=== PATIENT | female | born 1955 | race Caucasian/White ===

== ENCOUNTER 2018-04-18 20:10 | Inpatient (IN) | payer MEDICAID ==
[~2018-04-18] VITALS: Ht 160 cm; Wt 123.2 kg
--- NOTE | ~2018-04-18 | HP ---
PATIENT: RUCHI WOODS MEDICAL RECORD: [id number] ACCOUNT: [id number] LOCATION:D.MS [id number] : 57 ADMISSION DATE: 04/18/18 PCP: THERESA LOYD HISTORY AND PHYSICAL EXAMINATION HISTORY OF PRESENT ILLNESS: Ms. Woods is a 62-year-old white female who comes in today complaining of a "hole in her foot." She states she noticed it about a week ago. The foot is red and warm to touch. She has had some upper respiratory symptoms and feels like she has had some fever, but has blamed that on the URI, not her foot. Her white count today is mildly elevated at 12.6. X-ray reveals some minor foreign body at the 5th MTP joint, which corresponds to the area of the ulcer. She is a poorly controlled diabetic and has been seeing Dr. Loyd over the last several years. Her hemoglobin A1c today in the office is 13.4. Her just recently at [facility]. She is being admitted at this time for IV antibiotics and orthopedic consultation. PAST MEDICAL HISTORY: Significant for known diabetes mellitus, peripheral neuropathy, hyperlipidemia, and hypertension. PAST SURGICAL HISTORY: Included D&C in 1981. ALLERGIES: LEVEMIR INSULIN, UNCERTAIN OF THE REACTION. HOME MEDICATIONS: Include Tresiba 10 units a day, lisinopril 40 mg a day, glipizide 10 mg a day, levothyroxine 125 mcg daily, and Lasix 20 mg a day. FAMILY HISTORY: Significant for cancer and type 2 diabetes. SOCIAL HISTORY: The patient is recently . She is not a smoker. She did not use alcohol. REVIEW OF SYSTEMS: She has had some fever; however, she has felt feverish over the last few days, but has not checked her temperature. She is 99.4 today here in the office. She complains of some recent URI type symptoms with congestion and drainage. She denies a cough. She denies any chest pain. She does complain of quite a bit of foot pain in the left lateral foot. She denies any recent bowel or bladder changes. PHYSICAL EXAMINATION: GENERAL: She is in no obvious distress at this time. She is obese. HEENT: Her sclerae are nonicteric. NECK: Soft and supple. Mucous membranes are moist. HEART: Regular with normal rate and rhythm. LUNGS: Clear with good breath sounds bilaterally. ABDOMEN: Soft. EXTREMITIES: Left foot reveals a wound in the area of the fifth metatarsophalangeal joint which corresponds to the foreign body on the x-ray. She has decreased monofilament testing compatible with peripheral neuropathy. Pulses are diminished. Gait is normal. NEUROLOGIC: Otherwise is intact. IMPRESSION: 1. Diabetic foot. 2. Uncontrolled diabetes mellitus. 3. Foreign body on the left foot. HISTORY AND PHYSICAL [id number] [id number] 4. Hypertension. 5. Hyperlipidemia. 6. Grief reaction. 7. Obesity. PLAN: Admit. Culture foot. IV antibiotics. Orthopedic consult. See orders for rest of plan. TRANSINT:[id number] Voice Confirmation ID: [id number] DOCUMENT ID: [id number] THELMA THOMAS DO at 1416 CC: [id number] DICTATION DATE: 04/18/18 185 ACCOUNT COLLECTOR: 04/18/182138 DIS IN 04/25/18 [address] [place] [address]
--- NOTE | ~2018-04-18 | OP ---
PATIENT NAME: RUCHI WOODS MEDICAL RECORD: [id number] :57 LOCATION:D.MS Drake2235 ADMISSION DATE:04/18/18 SURGEON: BAKARI SUNSHINE MD DATE OF OPERATION: 04/21/2018 PREOPERATIVE DIAGNOSIS: Ulcerated left plantar aspect of the foot under the fifth digit with abscess. POSTOPERATIVE DIAGNOSIS: Ulcerated left plantar aspect of the foot under the fifth digit with abscess. PROCEDURES: 1. Excisional debridement of the abscess of the foot to include skin, subcutaneous tissue, portions of fat, fascia, and muscle. 2. Packing. SURGEON: Bakari Sunshine MD ANESTHESIA: TIVA with a regional block. INTRAOPERATIVE COMPLICATIONS: None. SUMMARY OF PATHOLOGIC FINDINGS: Lateral base incision was made over the area of the plantar ulceration. The lateral based incision was carried down to the MTP joint. Upon entering the area, the fluctuant abscess seen on MRI was noted and altagracia purulence was obtained. This was sent for culture. At this point, a combination of rongeur and curette was used to debride the area locally. At no point could I see that it was actually involving the bone; however, upon irrigation, a very small amount linked through the plantar ulcer. At this point, I did not decide to do a metatarsal head resection. After copious irrigation, the wound was packed with quarter-inch Nu Gauze. Sterile dressings were applied. The patient was then taken back to her hospital bed and taken back to her hospital room in stable condition. Note, the anesthesia was TIVA with a regional block. TRANSINT:[id number] Voice Confirmation ID: [id number] DOCUMENT ID: [id number] BAKARI SUNSHINE MD at 1418 CC: [id number] DICTATION DATE: 04/21/18 1240 HEAD BUYER TOBACCO: 04/21/18 1251 ADM IN [address] [place] [address]
[~2018-04-18 20:10] MED LIST: GLIPIZIDE10 MG PO; GLUCOPHAGE1000 MG PO; LISINOPRIL10 MG PO; LOPRESSOR25 MG PO; PRAVACHOL20 MG PO; PROTONIX40 MG PO; SYNTHROID100 MCG PO; ZESTORETIC 20-1 EACH PO
[2018-04-18] MEDS ORDERED: TRESIBA FL100 UNIT/1 (20:18)
[2018-04-18 21:18] LABS: BASOPHILS 0.2 % (0-2); EOSINOPHILS 0.4 % (0-7); HEMATOCRIT 32.4 % (36.0-48.0); HEMOGLOBIN 11.1 g/dL (12-16); IMMATURE GRANULOCYTES 0.1 % (0-5); LYMPHOCYTES 17.9 % (15-50); MCH 30.2 pg (26.0-34.0); MCHC 34.3 g/dL (31.0-37.0); MCV 88.3 fL (80.0-100.0); MEAN PLATELET VOLUME 10.4 fL (7.4-10.4); MONOCYTES 9.3 % (2-11); NEUTROPHILS 72.1 % (40-80); PLATELET COUNT 245 10x3/uL (130-400); RBC 3.67 10x6/uL (4.00-5.40); RDW 12.1 % (11.5-14.5); WBC 13.4 10x3/uL (4.8-10.8)
[2018-04-18 21:39] LABS: ALBUMIN 2.9 g/dL (3.4-5.0); ANION GAP 13.5 mmol/L (8-16); BILIRUBIN - TOTAL 0.53 mg/dL (0.2-1.3); CALCIUM 8.4 mg/dL (8.5-10.1); CARBON DIOXIDE 27.4 mmol/L (21.0-32.0); CREATININE - SERUM 1.5 mg/dL (0.6-1.3); POTASSIUM - SERUM 4.9 mmol/L (3.5-5.1); PROTEIN - SERUM 8.1 g/dL (6.4-8.2)
[2018-04-19] MEDS ORDERED: LASIX20 MG PO (00:01)
[2018-04-19 06:35] LABS: BASOPHILS 0.3 % (0-2); EOSINOPHILS 0.5 % (0-7); HEMATOCRIT 29.4 % (36.0-48.0); HEMOGLOBIN 9.9 g/dL (12-16); IMMATURE GRANULOCYTES 0.2 % (0-5); LYMPHOCYTES 20.8 % (15-50); MCH 29.8 pg (26.0-34.0); MCHC 33.7 g/dL (31.0-37.0); MCV 88.6 fL (80.0-100.0); MEAN PLATELET VOLUME 10.5 fL (7.4-10.4); MONOCYTES 10.6 % (2-11); NEUTROPHILS 67.6 % (40-80); PLATELET COUNT 230 10x3/uL (130-400); RBC 3.32 10x6/uL (4.00-5.40); RDW 12.2 % (11.5-14.5); WBC 13.2 10x3/uL (4.8-10.8)
[2018-04-19 06:48] LABS: ALBUMIN 2.5 g/dL (3.4-5.0); BILIRUBIN - TOTAL 0.54 mg/dL (0.2-1.3); CALCIUM 7.9 mg/dL (8.5-10.1); CARBON DIOXIDE 26.7 mmol/L (21.0-32.0); CREATININE - SERUM 1.5 mg/dL (0.6-1.3); POTASSIUM - SERUM 4.7 mmol/L (3.5-5.1); PROTEIN - SERUM 7.2 g/dL (6.4-8.2); THYROID STIMULATING HORMONE 0.48 uIU/mL (0.36-3.74)
[2018-04-19 08:19] LABS: ERYTHROCYTE SEDIMENTATION RATE 76 mm/hr (0-30)
[2018-04-19 10:30] VITALS: BP 119/60
[2018-04-19 13:23] VITALS: BMI 47.8
[2018-04-19 13:24] VITALS: BP 122/56
[2018-04-19 13:26] LABS: % SATURATION 11 % (15-55); IRON 18 ug/dl (35-150); TOTAL IRON BIND CAPACITY 162 ug/dl (260-445); UNSAT IRON BIND CAPACITY 144 ug/dl (150-375)
[2018-04-19 13:39] LABS: T4 THYROXIN - FREE 1.36 ng/dL (0.76-1.46); THYROID STIMULATING HORMONE 0.24 uIU/mL (0.36-3.74)
[2018-04-19 17:26] LABS: APPEARANCE CLEAR (CLEAR); BILIRUBIN NEGATIVE (NEGATIVE); COLOR YELLOW (YELLOW); GLUCOSE NEGATIVE (NEGATIVE); KETONE NEGATIVE (NEGATIVE); NITRITE NEGATIVE (NEGATIVE); PROTEIN NEGATIVE (NEGATIVE); SPECIFIC GRAVITY 1.005 (1.005-1.020); UROBILINOGEN NORMAL (NORMAL)
[2018-04-19 17:27] LABS: EPITHELIAL CELLS 0-5 /hpf (0-5); RED CELLS - URINE 0-5 /hpf (0-5)
[2018-04-19 17:28] LABS: BACTERIA FEW /hpf (NONE SEEN)
[2018-04-20] VITALS (7 sets, daily range): BP systolic 121–165; BP diastolic 50–80; Ht 160 cm; Wt 123.2 kg
[2018-04-20 07:30] LABS: BASOPHILS 0.5 % (0-2); EOSINOPHILS 1.5 % (0-7); HEMATOCRIT 30.8 % (36.0-48.0); HEMOGLOBIN 10.2 g/dL (12-16); IMMATURE GRANULOCYTES 0.2 % (0-5); LYMPHOCYTES 24.1 % (15-50); MCH 29.6 pg (26.0-34.0); MCHC 33.1 g/dL (31.0-37.0); MCV 89.3 fL (80.0-100.0); MEAN PLATELET VOLUME 11.4 fL (7.4-10.4); MONOCYTES 9.2 % (2-11); NEUTROPHILS 64.5 % (40-80); PLATELET COUNT 227 10x3/uL (130-400); RBC 3.45 10x6/uL (4.00-5.40); RDW 12.4 % (11.5-14.5)
[2018-04-20 07:38] LABS: ANION GAP 10.5 mmol/L (8-16); CARBON DIOXIDE 25.7 mmol/L (21.0-32.0); CREATININE - SERUM 1.7 mg/dL (0.6-1.3); POTASSIUM - SERUM 4.2 mmol/L (3.5-5.1)
[2018-04-20 08:20] LABS: FOLATE (FOLIC ACID) - SERUM >20.0 ng/mL (>3.0)
[2018-04-21 05:16] VITALS: BP 156/56
[2018-04-21 06:35] LABS: BASOPHILS 0.6 % (0-2); HEMATOCRIT 28.9 % (36.0-48.0); HEMOGLOBIN 9.5 g/dL (12-16); IMMATURE GRANULOCYTES 0.3 % (0-5); LYMPHOCYTES 22.2 % (15-50); MCH 29.4 pg (26.0-34.0); MCHC 32.9 g/dL (31.0-37.0); MCV 89.5 fL (80.0-100.0); MEAN PLATELET VOLUME 10.8 fL (7.4-10.4); MONOCYTES 9.9 % (2-11); PLATELET COUNT 260 10x3/uL (130-400); RBC 3.23 10x6/uL (4.00-5.40); RDW 12.3 % (11.5-14.5); WBC 10.5 10x3/uL (4.8-10.8)
[2018-04-21 06:40] LABS: CALCIUM 7.6 mg/dL (8.5-10.1); CARBON DIOXIDE 25.1 mmol/L (21.0-32.0); CREATININE - SERUM 1.7 mg/dL (0.6-1.3); POTASSIUM - SERUM 4.1 mmol/L (3.5-5.1)
[2018-04-21 10:55] LABS: APTT 45.2 SECONDS (22.8-39.4); INR 1.13 (0.85-1.17); PROTIME 14.1 SECONDS (11.6-15.0)
[2018-04-21 10:58] LABS: ALBUMIN 2.3 g/dL (3.4-5.0); BILIRUBIN - TOTAL 0.39 mg/dL (0.2-1.3); PROTEIN - SERUM 6.4 g/dL (6.4-8.2)
[2018-04-21 16:25] VITALS: BP 129/57
[2018-04-21 20:40] VITALS: BP 159/76
[2018-04-21 23:50] VITALS: BP 149/57
[2018-04-22 05:19] LABS: BASOPHILS 0.7 % (0-2); EOSINOPHILS 3.2 % (0-7); HEMATOCRIT 28.2 % (36.0-48.0); HEMOGLOBIN 9.2 g/dL (12-16); IMMATURE GRANULOCYTES 0.2 % (0-5); MCH 29.3 pg (26.0-34.0); MCHC 32.6 g/dL (31.0-37.0); MCV 89.8 fL (80.0-100.0); MEAN PLATELET VOLUME 10.3 fL (7.4-10.4); MONOCYTES 8.7 % (2-11); NEUTROPHILS 63.2 % (40-80); PLATELET COUNT 265 10x3/uL (130-400); RBC 3.14 10x6/uL (4.00-5.40); RDW 12.4 % (11.5-14.5); WBC 9.8 10x3/uL (4.8-10.8)
[2018-04-22 05:51] VITALS: BP 133/63
[2018-04-22 05:52] LABS: ANION GAP 13.2 mmol/L (8-16); CALCIUM 7.8 mg/dL (8.5-10.1); CARBON DIOXIDE 24.5 mmol/L (21.0-32.0); CREATININE - SERUM 1.8 mg/dL (0.6-1.3); POTASSIUM - SERUM 3.7 mmol/L (3.5-5.1)
[2018-04-22 08:18] VITALS: BP 115/67
[2018-04-22 13:10] VITALS: BP 147/72
[2018-04-22 16:40] VITALS: BP 147/75
[2018-04-22 20:55] VITALS: BP 166/81
[2018-04-23 06:28] LABS: BASOPHILS 0.4 % (0-2); EOSINOPHILS 6.9 % (0-7); HEMATOCRIT 27.9 % (36.0-48.0); HEMOGLOBIN 9.2 g/dL (12-16); IMMATURE GRANULOCYTES 0.4 % (0-5); LYMPHOCYTES 23.1 % (15-50); MCH 29.7 pg (26.0-34.0); MEAN PLATELET VOLUME 10.2 fL (7.4-10.4); MONOCYTES 11.5 % (2-11); NEUTROPHILS 57.7 % (40-80); PLATELET COUNT 274 10x3/uL (130-400); RDW 12.4 % (11.5-14.5)
[2018-04-23 06:47] LABS: ANION GAP 15.5 mmol/L (8-16); CALCIUM 8.3 mg/dL (8.5-10.1); CARBON DIOXIDE 23.6 mmol/L (21.0-32.0); CREATININE - SERUM 1.6 mg/dL (0.6-1.3); POTASSIUM - SERUM 4.1 mmol/L (3.5-5.1)
[2018-04-23 11:01] VITALS: BP 128/63
[2018-04-23 15:11] VITALS: BP 157/67
[2018-04-23 21:30] VITALS: BP 167/96
[2018-04-24 00:50] VITALS: BP 133/64
[2018-04-24 05:15] VITALS: BP 143/93
[2018-04-24 06:55] LABS: BASOPHILS 0.5 % (0-2); EOSINOPHILS 6.6 % (0-7); HEMATOCRIT 30.6 % (36.0-48.0); IMMATURE GRANULOCYTES 0.6 % (0-5); LYMPHOCYTES 30.3 % (15-50); MCH 29.3 pg (26.0-34.0); MCHC 32.7 g/dL (31.0-37.0); MCV 89.7 fL (80.0-100.0); MONOCYTES 11.1 % (2-11); NEUTROPHILS 50.9 % (40-80); PLATELET COUNT 300 10x3/uL (130-400); RBC 3.41 10x6/uL (4.00-5.40); RDW 12.5 % (11.5-14.5); WBC 6.5 10x3/uL (4.8-10.8)
[2018-04-24 07:33] LABS: ANION GAP 16.4 mmol/L (8-16); CALCIUM 7.9 mg/dL (8.5-10.1); CARBON DIOXIDE 24.2 mmol/L (21.0-32.0); CREATININE - SERUM 1.6 mg/dL (0.6-1.3); POTASSIUM - SERUM 3.6 mmol/L (3.5-5.1)
[2018-04-24 21:50] VITALS: BP 142/37
[2018-04-25 05:15] VITALS: BP 164/68
[2018-04-25 06:09] LABS: BASOPHILS 0.5 % (0-2); EOSINOPHILS 9.7 % (0-7); HEMATOCRIT 28.9 % (36.0-48.0); HEMOGLOBIN 9.5 g/dL (12-16); IMMATURE GRANULOCYTES 0.5 % (0-5); LYMPHOCYTES 33.8 % (15-50); MCH 29.5 pg (26.0-34.0); MCHC 32.9 g/dL (31.0-37.0); MCV 89.8 fL (80.0-100.0); MEAN PLATELET VOLUME 9.9 fL (7.4-10.4); NEUTROPHILS 45.5 % (40-80); PLATELET COUNT 265 10x3/uL (130-400); RBC 3.22 10x6/uL (4.00-5.40); RDW 12.4 % (11.5-14.5); WBC 6.2 10x3/uL (4.8-10.8)
[2018-04-25 06:28] LABS: CALCIUM 7.8 mg/dL (8.5-10.1); CARBON DIOXIDE 26.1 mmol/L (21.0-32.0); CREATININE - SERUM 1.5 mg/dL (0.6-1.3); POTASSIUM - SERUM 3.1 mmol/L (3.5-5.1)
[2018-04-25] MEDS ORDERED: ULTRAM50 MG PO (07:18)
[2018-04-25 08:49] VITALS: BP 141/60
[2018-04-25 12:04] VITALS: BP 184/83
[2018-04-25] MEDS ORDERED: FLORAJEN3 CAPS460 MG PO (14:04)
[2018-04-25] MEDS ORDERED: KEFLEX500 MG PO (14:05)
[2018-04-25 16:19] VITALS: BP 148/67
[2018-04-26 19:12] LABS: AEROBE ID Final report (())
== END 2018-04-25 18:42 | disposition home health service (06) | DRG 982 ==
LOC: D.ER 20:10 → D.EDHOLD 22:00 → D.MS 22:00
PROVIDERS: Anesthesiology; Family Medicine; Internal Medicine Nephrology; Orthopaedic Surgery
PROC: 0KBW0ZZ Excision of Left Foot Muscle, Open Approach (ICD-10-PCS; principal; 2018-04-21 14:00)
DX: E11.621 Type 2 diabetes mellitus with foot ulcer (principal); L97.528 Non-pressure chronic ulcer of other part of left foot with other specified severity; L02.612 Cutaneous abscess of left foot; L03.116 Cellulitis of left lower limb; E87.1 Hypo-osmolality and hyponatremia; Z68.42 Body mass index [BMI] 45.0-49.9, adult; E11.65 Type 2 diabetes mellitus with hyperglycemia; E78.5 Hyperlipidemia, unspecified; E03.9 Hypothyroidism, unspecified; E11.22 Type 2 diabetes mellitus with diabetic chronic kidney disease; I12.9 Hypertensive chronic kidney disease with stage 1 through stage 4 chronic kidney disease, or unspecified chronic kidney disease; N18.3 Chronic kidney disease, stage 3 (moderate); D64.9 Anemia, unspecified; S90.852A Superficial foreign body, left foot, initial encounter; E66.01 Morbid (severe) obesity due to excess calories; E11.43 Type 2 diabetes mellitus with diabetic autonomic (poly)neuropathy; F43.20 Adjustment disorder, unspecified

== ENCOUNTER 2020-03-17 17:20 | Inpatient (IN) | payer MEDICAID ==
[~2020-03-17] VITALS: Ht 160 cm; Wt 117.0 kg
[~2020-03-17 17:20] MED LIST changes: +FLORAJEN3 CAPS460 MG PO; +KEFLEX500 MG PO; +LASIX20 MG PO; +TRESIBA FL100 UNIT/1; +ULTRAM50 MG PO
[2020-03-17 18:04] LABS: BASOPHILS 0.3 % (0-2); EOSINOPHILS 0.1 % (0-7); HEMATOCRIT 33.5 % (36.0-48.0); HEMOGLOBIN 10.7 g/dL (12-16); IMMATURE GRANULOCYTES 0.4 % (0-5); MCH 29.5 pg (26.0-34.0); MCHC 31.9 g/dL (31.0-37.0); MCV 92.3 fL (80.0-100.0); MEAN PLATELET VOLUME 9.4 fL (7.4-10.4); NEUTROPHILS 74.2 % (40-80); RBC 3.63 10x6/uL (4.00-5.40); WBC 9.8 10x3/uL (4.8-10.8)
[2020-03-17 18:08] LABS: INR 0.99 (0.85-1.17)
[2020-03-17 18:09] LABS: ANION GAP 8.6 mmol/L (8-16); CALCIUM 10.8 mg/dL (8.5-10.1); CARBON DIOXIDE 33.9 mmol/L (21.0-32.0); CREATININE - SERUM 3.7 mg/dL (0.6-1.3); PLATELET COUNT 333 10x3/uL (130-400); POTASSIUM - SERUM 4.5 mmol/L (3.5-5.1)
[2020-03-17 18:15] LABS: ALBUMIN 2.5 g/dL (3.4-5.0); BILIRUBIN - TOTAL 0.48 mg/dL (0.2-1.3); PROTEIN - SERUM 6.7 g/dL (6.4-8.2)
[2020-03-17 21:52] LABS: HEMATOCRIT 34.3 % (36.0-48.0); HEMOGLOBIN 10.7 g/dL (12-16)
[2020-03-17 22:12] VITALS: BP 118/78
--- NOTE | 2020-03-17 23:45 | NUR ---
ATTEMPTED TO CALL REPORT. NURSE UNAVAILABLE DUE TO RAPID RESPONSE. WILL CALL BACK WHEN ABLE TO RECEIVE PT.
[2020-03-18] VITALS (10 sets, daily range): BP systolic 100–140; BP diastolic 48–73; Ht 160 cm; Wt 117.0 kg
--- NOTE | 2020-03-18 01:40 | NUR ---
RECEIVED PATIENT TO FLOOR. ATTEMPTED TO FLUSH LEFT HAND IV NOT PATENT. REMOVED AND CATHETER BENT, BUT INTACT. ATTEMPTED TO RESITE X2. CALL TO ICU FOR ASSITANCE, THEY ATTEMPTED X 2. UNSUCCESSFUL
[2020-03-18] MEDS ORDERED: FLAGYL500 MG PO (01:54)
[2020-03-18] MEDS ORDERED: AMOXICILLIN500 M1 PO (01:55)
[2020-03-18] MEDS ORDERED: HUMALOG 30100 UNITS/ SC (01:55)
[2020-03-18] MEDS ORDERED: BAYER CHEWABLE81 MG PO (01:56)
[2020-03-18 06:04] LABS: BASOPHILS 0.2 % (0-2); EOSINOPHILS 0.9 % (0-7); HEMATOCRIT 31.2 % (36.0-48.0); HEMOGLOBIN 9.7 g/dL (12-16); IMMATURE GRANULOCYTES 0.3 % (0-5); MCHC 31.1 g/dL (31.0-37.0); MCV 93.4 fL (80.0-100.0); MEAN PLATELET VOLUME 9.5 fL (7.4-10.4); MONOCYTES 9.8 % (2-11); NEUTROPHILS 67.8 % (40-80); PLATELET COUNT 361 10x3/uL (130-400); RBC 3.34 10x6/uL (4.00-5.40); RDW 16.5 % (11.5-14.5); WBC 9.7 10x3/uL (4.8-10.8)
[2020-03-18 06:54] LABS: ALBUMIN 2.3 g/dL (3.4-5.0); ALKALINE PHOSPHATASE 72 U/L (30-120); ALT (SGPT) 13 U/L (10-68); BILIRUBIN - TOTAL 0.44 mg/dL (0.2-1.3); CALC OSMOLALITY 294 mosm/kg (275-300); CALCIUM 10.4 mg/dL (8.5-10.1); CARBON DIOXIDE 33.4 mmol/L (21.0-32.0); CHLORIDE - SERUM 96 mmol/L (98-107); CKMB 0.7 U/L (0.0-3.6); CREATINE KINASE 20 UL (21-215); CREATININE - SERUM 3.7 mg/dL (0.6-1.3); GLUCOSE 204 mg/dL (74-106); POTASSIUM - SERUM 4.9 mmol/L (3.5-5.1); PRO BNP 3284 pg/mL (0-125); PROTEIN - SERUM 6.3 g/dL (6.4-8.2); SODIUM 134 mmol/L (136-145); UREA NITROGEN 71 mg/dL (7-18); eGFR NON AFRICAN AMERICAN 13 mL/min (90-120)
[2020-03-18 07:23] LABS: TROPONIN-I 0.116 ng/mL (0.000-0.060)
--- NOTE | 2020-03-18 07:47 | NUR ---
contacted samuel concerning an iv
[2020-03-18 08:23] LABS: APTT 29.5 SECONDS (22.8-39.4); INR 1.03 (0.85-1.17); PROTIME 13.5 SECONDS (11.6-15.0)
--- NOTE | 2020-03-18 10:15 | NUR ---
RETURNED FROM EGD, REMAIN NPO FOR CT BIOPSY TODAY
--- NOTE | 2020-03-18 11:07 | NUR ---
RESTING IN BED, NPO, CONT TO MONITOR SCD IN PLACE
--- NOTE | 2020-03-18 13:04 | NUR ---
PT GONE TO IR PER BED
--- NOTE | 2020-03-18 13:55 | NUR ---
RETURNED FROM IR PROCEDURE, NO DISTRESS NOTED, ELECTRIC POWER LINE EXAMINER IN ROOM AT PRESENT TIME,CONT TO MONITOR
--- NOTE | 2020-03-18 15:30 | NUR ---
DISCUSSED MG LEVEL WITH AND WILBER, NEW LABS DRAWS ON CHART
[2020-03-19] VITALS: BP 97/49
[2020-03-19 04:00] VITALS: BP 109/58
[2020-03-19 05:48] LABS: BASOPHILS 0.4 % (0-2); EOSINOPHILS 2.8 % (0-7); IMMATURE GRANULOCYTES 0.3 % (0-5); LYMPHOCYTES 24.4 % (15-50); MCH 29.1 pg (26.0-34.0); MCHC 32.1 g/dL (31.0-37.0); MEAN PLATELET VOLUME 10.6 fL (7.4-10.4); MONOCYTES 8.8 % (2-11); NEUTROPHILS 63.3 % (40-80); RBC 3.09 10x6/uL (4.00-5.40); RDW 16.3 % (11.5-14.5); WBC 9.1 10x3/uL (4.8-10.8)
[2020-03-19 05:49] LABS: MCV 90.6 fL (80.0-100.0); PLATELET COUNT 90 10x3/uL (130-400)
[2020-03-19 05:51] LABS: ALBUMIN 1.7 g/dL (3.4-5.0); ANION GAP 4.4 mmol/L (8-16); BILIRUBIN - TOTAL 0.36 mg/dL (0.2-1.3); CARBON DIOXIDE 34.1 mmol/L (21.0-32.0); CREATININE - SERUM 3.3 mg/dL (0.6-1.3); MAGNESIUM - SERUM 3.5 mg/dL (1.8-2.4); POTASSIUM - SERUM 4.5 mmol/L (3.5-5.1); PROTEIN - SERUM 4.8 g/dL (6.4-8.2)
--- NOTE | 2020-03-19 07:30 | NUR ---
REC'D IN BED AWAKE AND ALERT. RESP EVEN AND UNLABORED WITH NO DISTRESS NOTED. CAN EXPRESS NEEDS AND WANTS. DENIES ANY PAIN OR DISCOMFORT NOTED. ASSESSMENT COMPLETED. C/L IN REACH AT BEDSIDE.
[2020-03-19 08:25] LABS: PLATELET ESTIMATE DECREASED
[2020-03-19 09:12] LABS: HEPATITIS C ANTIBODY 0.2 S/CO RAT (0.0-0.9)
[2020-03-19 09:17] VITALS: BP 117/54
[2020-03-19 10:12] LABS: ANA REFLEX - ANTICHROMATIN ABS 0.4 AI (0.0-0.9); ANA REFLEX - CENTROMERE B ABS <0.2 AI (0.0-0.9); ANA REFLEX - DBL STRANDED DNA 1 IU/mL (0-9); ANA REFLEX - DIRECT Positive (Negative); ANA REFLEX - JO-1 AB 0.2 AI (0.0-0.9); ANA REFLEX - RNP ANTIBODIES <0.2 AI (0.0-0.9); ANA REFLEX - SCL-70 <0.2 AI (0.0-0.9); ANA REFLEX - SJOGRENS AB SSA 1.4 AI (0.0-0.9); ANA REFLEX - SJOGRENS AB SSB <0.2 AI (0.0-0.9); ANA REFLEX - SMITH AB 0.4 AI (0.0-0.9)
--- NOTE | 2020-03-19 12:11 | NUR ---
I have reviewed this patient and I concur with the Shift Assessment completed by the Licensed Practical Nurse today this shift.
[2020-03-19 12:44] LABS: BASOPHILS 0.4 % (0-2); EOSINOPHILS 2.8 % (0-7); HEMATOCRIT 29.4 % (36.0-48.0); HEMOGLOBIN 9.1 g/dL (12-16); IMMATURE GRANULOCYTES 0.4 % (0-5); LYMPHOCYTES 20.8 % (15-50); MCH 28.8 pg (26.0-34.0); MEAN PLATELET VOLUME 9.4 fL (7.4-10.4); MONOCYTES 7.8 % (2-11); NEUTROPHILS 67.8 % (40-80); RBC 3.16 10x6/uL (4.00-5.40); RDW 16.3 % (11.5-14.5); WBC 8.9 10x3/uL (4.8-10.8)
[2020-03-19 12:46] LABS: PLATELET COUNT 323 10x3/uL (130-400)
[2020-03-19 14:34] VITALS: BP 130/63
[2020-03-19 17:56] VITALS: BP 122/57
[2020-03-19 20:00] VITALS: BP 120/66
[2020-03-20 04:00] VITALS: BP 115/62
--- NOTE | 2020-03-20 05:35 | NUR ---
I have reviewed this patient and I concur with the Shift Assessment completed by the Licensed Practical Nurse today this shift.
[2020-03-20 05:46] LABS: BASOPHILS 0.2 % (0-2); HEMATOCRIT 28.1 % (36.0-48.0); HEMOGLOBIN 8.9 g/dL (12-16); IMMATURE GRANULOCYTES 0.5 % (0-5); MCH 29.2 pg (26.0-34.0); MCHC 31.7 g/dL (31.0-37.0); MCV 92.1 fL (80.0-100.0); MEAN PLATELET VOLUME 10.1 fL (7.4-10.4); MONOCYTES 10.2 % (2-11); NEUTROPHILS 65.1 % (40-80); PLATELET COUNT 337 10x3/uL (130-400); RBC 3.05 10x6/uL (4.00-5.40); RDW 16.2 % (11.5-14.5); WBC 8.1 10x3/uL (4.8-10.8)
[2020-03-20 06:21] LABS: ALBUMIN 1.7 g/dL (3.4-5.0); ANION GAP 4.9 mmol/L (8-16); BILIRUBIN - TOTAL 0.29 mg/dL (0.2-1.3); CALCIUM 8.7 mg/dL (8.5-10.1); CARBON DIOXIDE 34.5 mmol/L (21.0-32.0); CREATININE - SERUM 3.2 mg/dL (0.6-1.3); MAGNESIUM - SERUM 3.3 mg/dL (1.8-2.4); POTASSIUM - SERUM 4.4 mmol/L (3.5-5.1); PROTEIN - SERUM 5.2 g/dL (6.4-8.2)
--- NOTE | 2020-03-20 08:38 | NUR ---
BATH WAS OFFERED BUT PT REFUSED.
[2020-03-20 09:01] VITALS: BP 93/41
--- NOTE | 2020-03-20 11:06 | NUR ---
Nutrition follow-up: Pts diet advanced to consistent CHO after several tests 03/19 Labs reviewed Will provide food choices and honor food preferences within diet restrictions. RDN following.
--- NOTE | 2020-03-20 13:10 | NUR ---
INFORMED DR. THOMAS OF PT BS BEING 59. REC'D NEW ORDERS FOR D50W SYRINGE INJ X 1 DOSE 25 ML. C/L IN REACH AT BEDSIDE.
[2020-03-20 13:12] LABS: MITOCHONDRIAL ANTIBODY <20.0 Units (0.0-20.0); SMOOTH MUSCLE ABS (ACTIN) 13 Units (0-19)
[2020-03-20 13:36] VITALS: BP 100/53
--- NOTE | 2020-03-20 16:23 | MORECARE ---
CASE MANAGEMENT DISCHARGE SUMMARY PATIENT: RUCHI WOODS UNIT: [id number] ADM DATE: 03/18/20 AGE: 64 : 57 SEX: F ROOM/BED: D.2224 AUTHOR: TYESHA,DOC PHYSICIAN: REFERRING PHYSICIAN: DWIGHT DEL ROSARIO MD DATE OF SERVICE: 03/20/20 Discharge Plan Patient Name: RUCHI WOODS Facility: [facility]:[place] : 1955 Planned Disposition: Home Hlth Svc w Plan Readm Anticipated Discharge Date: Discharge Date: Expected LOS: Initial Reviewer: [email or web address] Initial Review Date: 03/18/2020 Generated: 03/20/20 5:22 pm Comments DCP- Discharge Planning Updated by [email or web address]: Opal Chang on 03/20/20 3:[address] Patient Name: RUCHI WOODS Admission Status: ER Accout number: [id number] Admission Date: 03-18-2020 : 1955 Admission Diagnosis:GASTROINTESTINAL HEMORRHAGE, UNSPECIFIED Attending: MICHAEL Current LOS: 2 Anticipated DC Date: Planned Disposition: Home Hlth Svc w Plan Readm Primary Insurance: MEDICAID [place] CM met with patient at bedside after explaining CM role and obtaining verbal consent. CM discussed availability / needs of home health, REHAB and medical equipment. PATIENT PLANS TO RESUME [facility], [facility] SIGNED. STATES WOULD LIKE [facility] FOR [facility]. CM TO FOLLOW AND ASSIST NEEDED. Insurance Underwriter Sales: Opal Chang DCPIA - Discharge Planning Initial Assessment Updated by [id number]: Opal Chang on 03/20/20 4:19 pm * Is the patient Alert and Oriented? Yes * PCP MARTHA * [facility] * Preadmission Environment Home Alone * ADLs Independent * Other Equipment SCOOTER, WALKER * Please name any agencies selected above. [facility] * Additional services required to return to the preadmission environment? No * Can the patient safely return to the preadmission environment? Yes * Has this patient been hospitalized within the prior 30 days at any hospital? No External Providers [facility] Next Contact Date: Service Request Date: Service Type: Resolution: Reviewer: Comments: Coverage Notice Reviewer: [email or web address] Darrel Opal Chang Notice Issued Date-Time: 03/20/2020 16:21 Notice Type: Patient Choice Letter Notice Delivered To: Relationship to Patient: Api Developer Name: Delivery Method: - Edel Days: Prior Verbal Notification: Recipient Understood Notice: Recipient Signature: Med Rec Note Co-signed by Attending: Coverage Notice Comment: [facility] Patient Name: RUCHI WOODS Page [id number] at 1623 All edits/amendments must be made on the electronic document DICTATION DATE: 03/20/20 1623 NANOSCIENCE TECHNICIAN: FOREST 03/20/20 1623 RPT#: [id number] MA DATE: STATUS: ADM IN [facility] [address] [place] [address] END OF REPORT
--- NOTE | 2020-03-20 17:49 | NUR ---
RECHECKED BS WITH RESULT OF 126 WHEN PRIOR WAS 44. C/L IN REACH AT BEDSIDE.
[2020-03-20 18:41] VITALS: BP 106/68
[2020-03-20 22:20] VITALS: BP 93/54
--- NOTE | 2020-03-21 03:54 | NUR ---
I have reviewed this patient and I concur with the Shift Assessment completed by the Licensed Practical Nurse today this shift.
[2020-03-21 04:00] VITALS: BP 105/56
[2020-03-21 05:36] LABS: HEMATOCRIT 31.2 % (36.0-48.0); HEMOGLOBIN 9.9 g/dL (12-16); LYMPHOCYTES 23.4 % (15-50); MCH 29.2 pg (26.0-34.0); MCHC 31.7 g/dL (31.0-37.0); MEAN PLATELET VOLUME 9.6 fL (7.4-10.4); NEUTROPHILS 65.5 % (40-80); PLATELET COUNT 308 10x3/uL (130-400); RBC 3.39 10x6/uL (4.00-5.40); RDW 15.6 % (11.5-14.5); WBC 8.5 10x3/uL (4.8-10.8)
[2020-03-21 06:14] LABS: ALBUMIN 1.8 g/dL (3.4-5.0); ANION GAP 7.6 mmol/L (8-16); BILIRUBIN - TOTAL 0.3 mg/dL (0.2-1.3); CALCIUM 8.6 mg/dL (8.5-10.1); CARBON DIOXIDE 32.6 mmol/L (21.0-32.0); CREATININE - SERUM 3.1 mg/dL (0.6-1.3); MAGNESIUM - SERUM 3.1 mg/dL (1.8-2.4); POTASSIUM - SERUM 4.2 mmol/L (3.5-5.1); PROTEIN - SERUM 5.4 g/dL (6.4-8.2)
[2020-03-21 07:13] LABS: ERYTHROCYTE SEDIMENTATION RATE 55 mm/hr (0-30)
[2020-03-21 08:00] VITALS: BP 99/41
[2020-03-21 08:34] LABS: BILIRUBIN NEGATIVE (NEGATIVE); GLUCOSE NEGATIVE (NEGATIVE); KETONE NEGATIVE (NEGATIVE); NITRITE NEGATIVE (NEGATIVE); UROBILINOGEN NORMAL (NORMAL)
[2020-03-21 08:36] LABS: RED CELLS - URINE 0-5 /hpf (0-5)
[2020-03-21 08:37] LABS: BACTERIA FEW /hpf (NEGATIVE)
[2020-03-21 12:00] VITALS: BP 91/43
--- NOTE | 2020-03-21 13:57 | NUR ---
SITTING UP AT BEDSIDE. FAMILY IN ROOM. MONITOR
--- NOTE | 2020-03-21 14:25 | EC ---
PATIENT:RUCHI WOODS DATE OF SERVICE: 03/18/20 SEX: F MEDICAL RECORD: [id number] DATE OF : 57 LOCATION:D.MS Drake222 AGE OF PATIENT: 64 ADMISSION DATE: 03/18/20 REFERRING PHYSICIAN: INTERPRETING PHYSICIAN: DANNY SORIA MD ECHOCARDIOGRAM REPORT ECHO CHARGES 4 ECHO COMPLETE Date: 03/18/20 CLINICAL DIAGNOSIS: ELEVATED TROPONIN, CIRRHOSIS, CHF ECHOCARDIOGRAPHIC MEASUREMENTS (adult normal given) AC root (d.<3.7cm) 2.2 cm LV Septum d (<1.2 cm> 1.0 cm Valve Excursion 1.6 cm LV Septum (systole) 1.9 cm Left Atria (s.<4.0cm> 3.4 cm LVPW d(<1.2cm) 0.9 cm RV (d.<2.3cm) 2.5 cm LVPW (sytole) 1.0 cm LV diastole(<5.6CM) 4.4 cm MV E-F(>70mm/sec) cm LV systole 2.6 cm LVOT Diameter 1.5 cm MV exc.(>10mm) cm Est.ejection fraction (50-75%) % DOPPLER: LVIT cm/sec A 146 cm/sec E 106 cm/sec LA cm/sec RVSP 25.9 mmHg LVOT 174 cm/sec AOP1/2T m/s Asc. Ao 153 cm/sec RVOT 84 cm/sec RA cm/sec PA 126 cm/sec AV Gradient Peak 9.3 mmHg AV Mean 5.4 mmHg AV Area 2.1 cm MV Gradient Peak 11.2 mmHg MV Mean 5.0 mmHg MV Area cm COMMENTS: Programmer Developer: Venancio RICH Cap Parts Cutter: 3 Dr. Rizo TAPE# PACS Pericardial Effusion N DATE OF SERVICE: Adequate 2D, color flow imaging, Spectral Doppler, and M-mode. No LVH. LV internal dimension is normal. Wall motion is normal. EF is greater than or equal to 55%.. Aortic valve is sclerotic. No evidence of stenosis by Doppler interrogation. Left atrium is normal. Mitral valve shows no prolapse. Trace MR. Right-sided chambers are grossly normal. Trace TR. TRANSINT:[id number] Voice Confirmation ID: [id number] DOCUMENT ID: [id number] ECHOCARDIOGRAM REPORT [id number] RUCHI WOODS DANNY SORIA MD at 1425 CC: [id number] DICTATION DATE: 03/19/20 1304 PLASTERER FOREMAN: 03/19/20 2153 ADM IN [place] [id number] [place] [id number]
[2020-03-21 15:32] VITALS: BP 91/45
--- NOTE | 2020-03-21 19:20 | NUR ---
UPON THIS NURSE BATHING PT SHE NOTICE THAT SHE HAS ON OPEN AREA NOTED TO RIGHT PINKIE TOE. C/L IN REACH AT BEDSIDE.
[2020-03-21 20:00] VITALS: BP 106/48
[2020-03-22 04:00] VITALS: BP 109/54
[2020-03-22 04:48] LABS: BASOPHILS 0.3 % (0-2); EOSINOPHILS 4.8 % (0-7); HEMATOCRIT 26.7 % (36.0-48.0); HEMOGLOBIN 8.3 g/dL (12-16); IMMATURE GRANULOCYTES 0.4 % (0-5); MCH 28.4 pg (26.0-34.0); MCHC 31.1 g/dL (31.0-37.0); MCV 91.4 fL (80.0-100.0); MEAN PLATELET VOLUME 9.6 fL (7.4-10.4); MONOCYTES 12.1 % (2-11); NEUTROPHILS 58.4 % (40-80); PLATELET COUNT 302 10x3/uL (130-400); RBC 2.92 10x6/uL (4.00-5.40); WBC 7.7 10x3/uL (4.8-10.8)
[2020-03-22 05:05] LABS: ALBUMIN 1.9 g/dL (3.4-5.0); ANION GAP 7.8 mmol/L (8-16); BILIRUBIN - TOTAL 0.33 mg/dL (0.2-1.3); CALCIUM 8.1 mg/dL (8.5-10.1); CARBON DIOXIDE 32.4 mmol/L (21.0-32.0); CREATININE - SERUM 3.1 mg/dL (0.6-1.3); MAGNESIUM - SERUM 2.9 mg/dL (1.8-2.4); POTASSIUM - SERUM 4.2 mmol/L (3.5-5.1); PROTEIN - SERUM 4.9 g/dL (6.4-8.2)
--- NOTE | 2020-03-22 09:18 | NUR ---
SHE IS ALERT TALKING. SHE HAS REDNESS TO THE RIGHT LOWER LEG, 2ND TOE HAS A RED AREA AND ALL OF THE 5 TH TOE IS RED. NEW IV TO THE RFA 22 G. REMOVED THE IV FROM THE LEFT ARM. THE CALL LIGHT IS WITHIN REACH.
[2020-03-22 09:26] VITALS: BP 106/51
[2020-03-22 12:56] VITALS: BP 111/66
[2020-03-22 15:12] LABS: UPE RAND - ALBUMIN 20.3 % (()); UPE RAND - ALPHA 1 GLOBULIN 4.3 % (()); UPE RAND - ALPHA 2 GLOBULIN 17.3 % (()); UPE RAND - BETA GLOBULIN 25.4 % (()); UPE RAND - GAMMA GLOBULIN 32.7 % (())
[2020-03-22 15:12] LABS: SPE - A/G RATIO 0.8 (0.7-1.7); SPE - ALBUMIN 2.1 g/dL (2.9-4.4); SPE - ALPHA-1 GLOBULIN 0.3 g/dL (0.0-0.4); SPE - ALPHA-2 GLOBULIN 0.8 g/dL (0.4-1.0); SPE - BETA GLOBULIN 0.5 g/dL (0.7-1.3); SPE - GAMMA GLOBULIN 1.1 g/dL (0.4-1.8); SPE - M-SPIKE 0.2 g/dL (Not Observed); SPE - TOTAL PROTEIN 4.8 g/dL (6.0-8.5)
[2020-03-22 17:22] VITALS: BP 97/51
--- NOTE | 2020-03-22 19:00 | NUR ---
BEDSIDE REPORT RECEIVED AND CARE OF PT ASSUMED. PT LYING IN SUPINE POSITION WITH EYES CLOSED. IV TO RIGHT FA PATENT WITH D10 INFUSING AT 30 ML/HR. WILL MONITOR FOR NEEDS.
[2020-03-22 20:00] VITALS: BP 147/72
--- NOTE | 2020-03-22 21:04 | NUR ---
HS MEDICATIONS GIVEN. FSBS 146 THIS CHECK REQUIRING NO COVERAGE PER SLIDING SCALE.
--- NOTE | 2020-03-23 04:09 | NUR ---
GAVE TYLENOL 650 MG PO PER REQUEST FOR BACK PAIN, PER PRN ORDER. WILL MONITOR FOR EFFECTIVENESS.
[2020-03-23 05:38] LABS: BASOPHILS 0.5 % (0-2); EOSINOPHILS 4.1 % (0-7); HEMATOCRIT 27.5 % (36.0-48.0); HEMOGLOBIN 8.7 g/dL (12-16); IMMATURE GRANULOCYTES 0.6 % (0-5); LYMPHOCYTES 22.4 % (15-50); MCH 28.7 pg (26.0-34.0); MCHC 31.6 g/dL (31.0-37.0); MCV 90.8 fL (80.0-100.0); MEAN PLATELET VOLUME 9.6 fL (7.4-10.4); MONOCYTES 12.1 % (2-11); NEUTROPHILS 60.3 % (40-80); PLATELET COUNT 316 10x3/uL (130-400); RBC 3.03 10x6/uL (4.00-5.40); RDW 15.7 % (11.5-14.5); WBC 8.3 10x3/uL (4.8-10.8)
[2020-03-23 06:23] LABS: ANION GAP 7.4 mmol/L (8-16); BILIRUBIN - TOTAL 0.43 mg/dL (0.2-1.3); CALCIUM 7.9 mg/dL (8.5-10.1); CARBON DIOXIDE 32.6 mmol/L (21.0-32.0); MAGNESIUM - SERUM 2.8 mg/dL (1.8-2.4); PROTEIN - SERUM 5.4 g/dL (6.4-8.2)
[2020-03-23 06:24] LABS: ALBUMIN 2.4 g/dL (3.4-5.0)
--- NOTE | 2020-03-23 08:16 | NUR ---
SHE IS SLEEPY THIS MORNING. BP IS LOW THIS MORNING. RIGHT LEG STILL HAS SOME REDNESS TO THE LOWER PART OF THE LEG. THE CALL LIGHT IS WITHIN REACH.
[2020-03-23 10:10] VITALS: BP 94/35
[2020-03-23 13:25] VITALS: BP 115/76
[2020-03-23 17:02] VITALS: BP 108/66
[2020-03-23 21:00] VITALS: BP 120/52
--- NOTE | 2020-03-24 07:00 | NUR ---
RECEIVED REPORT, ASSUMED CARE, A&O, DENIES NEEDS, BREATHING UNLBAORED, CALL LIGHT IN REACH, BED LOWEST POSITION, IV TO RFA PATENT D5 NS @50, 2L NC O2, HELPED UP TO BATHROOM, WALKER USED, ONE PERSON ASSIST, HELPED BACK IN BED, WILL CONITNUE POC
[2020-03-24 07:15] VITALS: BP 108/50
[2020-03-24 11:19] LABS: BASOPHILS 0.5 % (0-2); IMMATURE GRANULOCYTES 0.5 % (0-5); LYMPHOCYTES 18.8 % (15-50); MCH 28.9 pg (26.0-34.0); MCV 90.3 fL (80.0-100.0); MEAN PLATELET VOLUME 9.4 fL (7.4-10.4); MONOCYTES 15.1 % (2-11); NEUTROPHILS 61.1 % (40-80); PLATELET COUNT 286 10x3/uL (130-400); RBC 2.77 10x6/uL (4.00-5.40); RDW 15.8 % (11.5-14.5); WBC 6.3 10x3/uL (4.8-10.8)
[2020-03-24 11:27] LABS: ANION GAP 7.7 mmol/L (8-16); CALCIUM 7.8 mg/dL (8.5-10.1); POTASSIUM - SERUM 3.7 mmol/L (3.5-5.1)
[2020-03-24 11:32] LABS: ALBUMIN 2.9 g/dL (3.4-5.0); BILIRUBIN - TOTAL 0.48 mg/dL (0.2-1.3); PROTEIN - SERUM 5.3 g/dL (6.4-8.2)
[2020-03-24 12:04] VITALS: BP 117/56
[2020-03-24 15:42] VITALS: BP 103/52
--- NOTE | 2020-03-24 16:11 | NUR ---
Rehab Note- Acute Inpatient Rehab prescreen order received. The patient has Medicaid & [facility] Acute Inpatient Rehab does not accept Medicaid. Thank you for this referral! Jess Garcia RN Clinical Liaison, [facility] Rehab
[2020-03-24 18:44] LABS: CREATININE - URINE 90.9 mg/dL (30-125); PRO/CRE RATIO URINE 0.1 mg/g; PROTEIN - URINE 12.9 mg/dL (0.0-11.9)
--- NOTE | 2020-03-24 19:00 | NUR ---
BEDSIDE REPORT RECEIVED AND CARE OF PT ASSUMED. PT LYING IN SUPINE POSITION WITH EYES CLOSED. IV TO RIGHT FA PATENT WITH D5NS INFUSING AT 30 ML/HR. WILL MONITOR FOR NEEDS.
[2020-03-24 20:00] VITALS: BP 110/63
--- NOTE | 2020-03-24 21:29 | NUR ---
HS MEDICATIONS GIVEN. FSBS 199 THIS CHECK REQUIRING COVERAGE WITH 2 UNITS OF INSULIN PER SLIDING SCALE.
--- NOTE | 2020-03-24 21:41 | NUR ---
GAVE LACTULOSE PER PRN ORDER, PER PT REQUEST FOR MED FOR CONSTIPATION.
[2020-03-25] VITALS: BP 116/52
[2020-03-25 04:00] VITALS: BP 115/61
[2020-03-25 06:22] LABS: BASOPHILS 0.6 % (0-2); EOSINOPHILS 3.5 % (0-7); HEMATOCRIT 27.9 % (36.0-48.0); HEMOGLOBIN 8.7 g/dL (12-16); IMMATURE GRANULOCYTES 0.4 % (0-5); LYMPHOCYTES 30.2 % (15-50); MCH 28.6 pg (26.0-34.0); MCHC 31.2 g/dL (31.0-37.0); MCV 91.8 fL (80.0-100.0); MEAN PLATELET VOLUME 9.5 fL (7.4-10.4); NEUTROPHILS 50.3 % (40-80); PLATELET COUNT 338 10x3/uL (130-400); RBC 3.04 10x6/uL (4.00-5.40); RDW 15.9 % (11.5-14.5); WBC 7.2 10x3/uL (4.8-10.8)
[2020-03-25 07:00] LABS: TOTAL IRON BIND CAPACITY 81 ug/dl (260-445)
[2020-03-25 07:17] LABS: % SATURATION 35 % (15-55); IRON 29 ug/dl (35-150)
[2020-03-25 07:18] LABS: UNSAT IRON BIND CAPACITY 52 ug/dl (150-375)
[2020-03-25 07:22] LABS: ANION GAP 10.6 mmol/L (8-16); CALCIUM 7.8 mg/dL (8.5-10.1); CARBON DIOXIDE 29.1 mmol/L (21.0-32.0); MAGNESIUM - SERUM 2.7 mg/dL (1.8-2.4); PHOSPHOROUS 1.6 mg/dL (2.5-4.9); POTASSIUM - SERUM 3.7 mmol/L (3.5-5.1)
--- NOTE | 2020-03-25 08:01 | NUR ---
pt iv in rt arm leaking, resited iv to left hand, pt tolerated well. cl in erach continue with plan of care
[2020-03-25 08:37] VITALS: BP 113/57
[2020-03-25 12:00] VITALS: BP 113/62
--- NOTE | 2020-03-25 12:47 | NUR ---
LYING IN BED,WITHOUT DISTRESS.DOOR OPEN
[2020-03-25 16:00] VITALS: BP 113/53
--- NOTE | 2020-03-25 19:00 | NUR ---
BEDSIDE REPORT RECEIVED AND CARE OF PT ASSUMED. PT SITTING UP IN BED WATCHING TV. IV TO LEFT HAND SALINE LOCKED. WILL MONITOR FOR NEEDS.
--- NOTE | 2020-03-25 20:47 | NUR ---
HS MEDICATIONS GIVEN. FSBS 139 THIS CHECK REQUIRING NO COVERAGE PER SLIDING SCALE.
[2020-03-25 20:55] VITALS: BP 104/56
[2020-03-26 04:53] LABS: EOSINOPHILS 3.3 % (0-7); HEMATOCRIT 26.6 % (36.0-48.0); HEMOGLOBIN 8.4 g/dL (12-16); IMMATURE GRANULOCYTES 0.4 % (0-5); LYMPHOCYTES 30.3 % (15-50); MCH 28.9 pg (26.0-34.0); MCHC 31.6 g/dL (31.0-37.0); MCV 91.4 fL (80.0-100.0); MEAN PLATELET VOLUME 9.3 fL (7.4-10.4); MONOCYTES 15.9 % (2-11); NEUTROPHILS 49.1 % (40-80); PLATELET COUNT 366 10x3/uL (130-400); RBC 2.91 10x6/uL (4.00-5.40); RDW 16.1 % (11.5-14.5); WBC 7.2 10x3/uL (4.8-10.8)
[2020-03-26 05:14] LABS: CALCIUM 7.6 mg/dL (8.5-10.1); CARBON DIOXIDE 29.5 mmol/L (21.0-32.0); POTASSIUM - SERUM 3.5 mmol/L (3.5-5.1)
[2020-03-26 06:54] VITALS: BP 109/59
[2020-03-26 08:09] VITALS: BP 116/47
--- NOTE | 2020-03-26 10:37 | NUR ---
OT NOTE: (DOS 03/25/20) PT COMPLETED SUPINE TO SIT WITH MIN A. PT COMPLETED SIT TO STAND WITH CGA. PT COMPLETED SELF FEEDING TASKS WITH SETUP. [phone] THANK YOU,ARIANNE MARTINEZ
[2020-03-26] MEDS ORDERED: MIDODRINE HCL2.5 MG PO (11:06)
[2020-03-26] MEDS ORDERED: CARAFATE1 G PO (11:07)
[2020-03-26] MEDS ORDERED: METAMUCIL PACKE1 PKT PO (11:07)
[2020-03-26] MEDS ORDERED: CHRONULAC30 ML PO (11:07)
--- NOTE | 2020-03-26 11:44 | NUR ---
RESTING IN CHAIR,WITHOUT DISTRESS.CALL LIGHT IN REACH
[2020-03-26 12:54] VITALS: BP 127/64
--- NOTE | 2020-03-26 13:43 | MORECARE ---
CASE MANAGEMENT DISCHARGE SUMMARY PATIENT: RUCHI WOODS UNIT: [id number] ADM DATE: 03/18/20 AGE: 64 : 57 SEX: F ROOM/BED: D.2224 AUTHOR: TYESHA,DOC PHYSICIAN: REFERRING PHYSICIAN: DWIGHT DEL ROSARIO MD DATE OF SERVICE: 03/26/20 Discharge Plan Patient Name: RUCHI WOODS Facility: [facility]:[place] : 1955 Planned Disposition: Home Hlth Svc w Plan Readm Anticipated Discharge Date: Discharge Date: Expected LOS: Initial Reviewer: [email or web address] Initial Review Date: 03/18/2020 Generated: 03/26/20 2:42 pm Comments DCP- Discharge Planning Updated by [email or web address]: Evie Weinberg on 03/26/20 12:[address] PATIENT WILL BE DISCHARGING HOME & [facility]. I CALLED [facility] ABOUT THE BSC, THE PATIENT WILL NOT QUALIFY FOR A BSC -XL SHE DOES NOT MEET THE WEIGHT FOR IT. SHE IS CURRENT WITH I, I SPOKE WITH IVON AT [facility] TO LET HIM KNOW ABOUT THE DISCHARGE, HE SAID HE WILL START SERVICES AGAIN. I WILL FAX PAPERWORK OVER HER [place] WILL BE HER ENERGY AUDIT ADVISOR HOME AND I SPOKE WITH HIM JUN [phone] DCP- Discharge Planning Updated by [id number]: Opal Chang on 03/20/20 3:[address] Patient Name: RUCHI WOODS Admission Status: ER Accout number: [id number] Admission Date: 03-18-2020 : 1955 Admission Diagnosis:GASTROINTESTINAL HEMORRHAGE, UNSPECIFIED Attending: MICHAEL Current LOS: 2 Anticipated DC Date: Planned Disposition: Home Hlth Svc w Plan Readm Primary Insurance: MEDICAID [place] CM met with patient at bedside after explaining CM role and obtaining verbal consent. CM discussed availability / needs of home health, REHAB and medical equipment. PATIENT PLANS TO RESUME [facility], [facility] SIGNED. STATES WOULD LIKE [facility] FOR [facility]. CM TO FOLLOW AND ASSIST NEEDED. Community Ambassador: Opal Chang DCPIA - Discharge Planning Initial Assessment Updated by [id number]: Opal Chang on 03/20/20 4:19 pm * Is the patient Alert and Oriented? Yes * PCP MARTHA * [facility] * Preadmission Environment Home Alone * ADLs Independent * Other Equipment SCOOTER, WALKER * Please name any agencies selected above. [facility] * Additional services required to return to the preadmission environment? No * Can the patient safely return to the preadmission environment? Yes * Has this patient been hospitalized within the prior 30 days at any hospital? No Coverage Notice Reviewer: [id number] - Opalpaula Chang Notice Issued Date-Time: 03/20/2020 16:21 Notice Type: Patient Choice Letter Notice Delivered To: Relationship to Patient: Computational Mathematician Name: Delivery Method: - Edel Days: Prior Verbal Notification: Recipient Understood Notice: Recipient Signature: Med Rec Note Co-signed by Attending: Coverage Notice Comment: [facility] Last DP export: 03/20/20 3:23 p Patient Name: RUCHI WOODS Page 36600 at 1343 All edits/amendments must be made on the electronic document DICTATION DATE: 03/26/20 1342 FARM MANAGEMENT TEACHER: FOREST 03/26/20 1342 RPT#: [id number] DC DATE: STATUS: ADM IN [facility] [address] [place] [address] END OF REPORT
--- NOTE | 2020-03-26 14:00 | MORECARE ---
CASE MANAGEMENT DISCHARGE SUMMARY PATIENT: RUCHI WOODS UNIT: [id number] ADM DATE: 03/18/20 AGE: 64 : 57 SEX: F ROOM/BED: D.2224 AUTHOR: TYESHA,DOC PHYSICIAN: REFERRING PHYSICIAN: DWIGHT DEL ROSARIO MD DATE OF SERVICE: 03/26/20 Discharge Plan Patient Name: RUCHI WOODS Facility: [facility]:[place] : 1955 Planned Disposition: Home Hlth Svc w Plan Readm Anticipated Discharge Date: Discharge Date: Expected LOS: Initial Reviewer: [email or web address] Initial Review Date: 03/18/2020 Generated: 03/26/20 3:00 pm Comments DCP- Discharge Planning Updated by [email or web address]: Evie Weinberg on 03/26/20 12:[address] PATIENT WILL BE DISCHARGING HOME & RESUME [facility]. I CALLED [facility] ABOUT THE BSC, THE PATIENT WILL NOT QUALIFY FOR A BSC -XL SHE DOES NOT MEET THE WEIGHT FOR IT. SHE IS CURRENT WITH I, I SPOKE WITH IVON AT [facility] TO LET HIM KNOW ABOUT THE DISCHARGE, HE SAID HE WILL START SERVICES AGAIN. I WILL FAX PAPERWORK OVER HER [place] WILL BE HER ESCALATOR SERVICE MECHANIC HOME AND I SPOKE WITH HIM JUN [phone] DCP- Discharge Planning Updated by [id number]: Opal Chang on 03/20/20 3:[address] Patient Name: RUCHI WOODS Admission Status: ER Accout number: [id number] Admission Date: 03-18-2020 : 1955 Admission Diagnosis:GASTROINTESTINAL HEMORRHAGE, UNSPECIFIED Attending: MICHAEL Current LOS: 2 Anticipated DC Date: Planned Disposition: Home Hlth Svc w Plan Readm Primary Insurance: MEDICAID [place] CM met with patient at bedside after explaining CM role and obtaining verbal consent. CM discussed availability / needs of home health, REHAB and medical equipment. PATIENT PLANS TO RESUME [facility], [facility] SIGNED. STATES WOULD LIKE [facility] FOR [facility]. CM TO FOLLOW AND ASSIST NEEDED. Flight Agent: Opal Chang DCPIA - Discharge Planning Initial Assessment Updated by [id number]: Opal Chang on 03/20/20 4:19 pm * Is the patient Alert and Oriented? Yes * PCP MARTHA * [facility] * Preadmission Environment Home Alone * ADLs Independent * Other Equipment SCOOTER, WALKER * Please name any agencies selected above. [facility] * Additional services required to return to the preadmission environment? No * Can the patient safely return to the preadmission environment? Yes * Has this patient been hospitalized within the prior 30 days at any hospital? No External Providers External Provider: [facility] Next Contact Date: Service Request Date: Service Type: Resolution: Reviewer: Comments: Coverage Notice Reviewer: [id number] - Opal Charlene Notice Issued Date-Time: 03/20/2020 16:21 Notice Type: Patient Choice Letter Notice Delivered To: Relationship to Patient: Grapple Operator Name: Delivery Method: - Edel Days: Prior Verbal Notification: Recipient Understood Notice: Recipient Signature: Med Rec Note Co-signed by Attending: Coverage Notice Comment: [facility] FOR [facility] Last DP export: 03/26/20 12:43 p Patient Name: RUCHI WOODS Page 10052 at 1400 All edits/amendments must be made on the electronic document DICTATION DATE: 03/26/20 1400 SECURITY CHIEF MUSEUM: FOREST 03/26/20 1400 RPT#: [id number] DC DATE: STATUS: ADM IN [facility] [address] [place] [address] END OF REPORT
--- NOTE | 2020-03-26 16:42 | NUR ---
OT NOTE: AMB TO BATHROOM WITH WALKER AND CGA. PERFORMED TOILETING INCLUDING TOILET HYGIENE WITHOUT ASSSIST; REQUIRED MIN ASSIST FOR SIT TO STAND FROM TOILET WITH USE OF WALKER. AMB IN ROOM APPROX 10 FT FROM TOILET TO CHAIR. PT VERY FATIGUED. PT REPORTED THAT SHE WANTED TO WALKER FURTHER BUT WAS RESTRICTED FROM BACK PAIN. PT ABLE TO PERFORM FEEDING AND GROOMING WITH SET UP. PT TOLERATED SITTING UP IN CHAIR FOR GREATER THAN 1 HR TODAY. CHRISTIANO LILLY, OTR/L [phone]
[2020-03-26] MEDS ORDERED: LASIX20 MG PO (17:24)
== END 2020-03-26 21:00 | disposition home health service (06) | DRG 380 ==
LOC: D.ER 17:20 → D.MS 22:25 → OBSVTIME 03-18 22:45 → D.MS 03-18 23:01
PROVIDERS: Family Medicine; Internal Medicine Gastroenterology; Internal Medicine Nephrology; Specialist; ADMIT Family Medicine; ATTEND Family Medicine
PROC: 0W9G3ZZ Drainage of Peritoneal Cavity, Percutaneous Approach (ICD-10-PCS; 2020-03-18)
PROC: 0DB68ZX Excision of Stomach, Via Natural or Artificial Opening Endoscopic, Diagnostic (ICD-10-PCS; principal; 2020-03-18 06:36)
DX: K22.11 Ulcer of esophagus with bleeding (principal); I21.A1 Myocardial infarction type 2; I13.0 Hypertensive heart and chronic kidney disease with heart failure and stage 1 through stage 4 chronic kidney disease, or unspecified chronic kidney disease; R18.8 Other ascites; E87.1 Hypo-osmolality and hyponatremia; Z68.42 Body mass index [BMI] 45.0-49.9, adult; N17.9 Acute kidney failure, unspecified; K44.9 Diaphragmatic hernia without obstruction or gangrene; K29.71 Gastritis, unspecified, with bleeding; N18.9 Chronic kidney disease, unspecified; I50.9 Heart failure, unspecified; K74.60 Unspecified cirrhosis of liver; D63.1 Anemia in chronic kidney disease; E83.52 Hypercalcemia; E83.41 Hypermagnesemia; E11.40 Type 2 diabetes mellitus with diabetic neuropathy, unspecified; E11.22 Type 2 diabetes mellitus with diabetic chronic kidney disease; E03.9 Hypothyroidism, unspecified; E66.01 Morbid (severe) obesity due to excess calories; E86.0 Dehydration; D69.6 Thrombocytopenia, unspecified

== ENCOUNTER 2020-04-22 12:46 | Inpatient (IN) | payer MEDICAID ==
[~2020-04-22] VITALS: Ht 160 cm; Wt 105.1 kg
--- NOTE | ~2020-04-22 | EEG ---
PATIENT:RUCHI WOODS MEDICAL RECORD: [id number] DATE OF : 57 LOCATION:D.211 D.M2 ADMISSION DATE: 04/22/20 REFERRING PHYSICIAN: INTERPRETING PHYSICIAN: BAKARI VALIENTE MD DATE OF SERVICE: 05/08/2020 ROOM NUMBER: [id number] DATE OF EE05/08/2020 ORDERED BY: Bakari Valiente MD CASE HISTORY: A 64-year-old female, exhibiting spells of change in awareness and responsiveness during lengthy hospitalization with cirrhosis, ascites, acute renal failure and dialysis. MEDICATIONS: Include metoprolol, metoclopramide, levothyroxine, glycopyrrolate, bumetanide, albumin. Procedure EEG done as a routine bedside portable recording using the standard 10-20 international electrode system. A 16 channel was used with 17th as EKG. Photic stimulation done as activation procedures. DESCRIPTION IN DETAIL: EEG opens with the patient awake, but lethargic, trending through drowsiness to stage I sleep, there is prominent EMG and motor artifact obscuring portions of the record. Record displays mixed background slowing in the theta range, mostly in the 6-7 Hz range, rarely 7-8 Hz, that is often intermixed with bilateral independent single delta slow waves. Infrequent occasional bilateral independent single sharp wave activities mainly centrally were seen. No epileptiform change such as spike, polyspike or spike and wave was seen. Photic stimulation did not yield a significant driving response. There was a photomyogenic or photoparoxysmal response seen. IMPRESSION: Moderately abnormal EEG with diffuse background slowing consistent with encephalopathy. No evidence of seizure disorder was found in this recording. TRANSINT:[id number] Voice Confirmation ID: [id number] DOCUMENT ID: [id number] BAKARI VALIENTE MD CC: [id number] DICTATION DATE: 05/08/20 1407 DIRECTOR CLINICAL PHARMACOLOGY: 05/08/20 1639 ADM IN [facility] [address] [place] [address]
[~2020-04-22 12:46] MED LIST changes: +AMOXICILLIN500 M1 PO; +BAYER CHEWABLE81 MG PO; +CARAFATE1 G PO; +CHRONULAC30 ML PO; +FLAGYL500 MG PO; +HUMALOG 30100 UNITS/ SC; +METAMUCIL PACKE1 PKT PO; +MIDODRINE HCL2.5 MG PO
[2020-04-22 13:59] LABS: ANION GAP 12.1 mmol/L (8-16); CALCIUM 9.5 mg/dL (8.5-10.1); CARBON DIOXIDE 27.6 mmol/L (21.0-32.0); CREATININE - SERUM 8.7 mg/dL (0.6-1.3); POTASSIUM - SERUM 3.7 mmol/L (3.5-5.1)
[2020-04-22 14:07] LABS: BASOPHILS 0.1 % (0-2); EOSINOPHILS 0.3 % (0-7); HEMATOCRIT 33.5 % (36.0-48.0); HEMOGLOBIN 10.7 g/dL (12-16); IMMATURE GRANULOCYTES 0.3 % (0-5); LYMPHOCYTES 18.8 % (15-50); MCH 28.4 pg (26.0-34.0); MCHC 31.9 g/dL (31.0-37.0); MCV 88.9 fL (80.0-100.0); MEAN PLATELET VOLUME 9.9 fL (7.4-10.4); MONOCYTES 6.6 % (2-11); NEUTROPHILS 73.9 % (40-80); PLATELET COUNT 335 10x3/uL (130-400); RBC 3.77 10x6/uL (4.00-5.40); RDW 14.9 % (11.5-14.5)
[2020-04-22 14:16] LABS: ALBUMIN 2.3 g/dL (3.4-5.0); BILIRUBIN - TOTAL 0.38 mg/dL (0.2-1.3); PROTEIN - SERUM 6.3 g/dL (6.4-8.2)
[2020-04-22 14:23] LABS: TROPONIN-I 0.321 ng/mL (0.000-0.060)
--- NOTE | 2020-04-22 14:32 | NUR ---
URINE SAMPLE OBTAINED SNT TO LAB
[2020-04-22 14:49] VITALS: BP 115/73
[2020-04-22 15:21] LABS: BILIRUBIN NEGATIVE (NEGATIVE); KETONE NEGATIVE (NEGATIVE); NITRITE NEGATIVE (NEGATIVE); UROBILINOGEN NORMAL mg/dL (< 2)
[2020-04-22 15:22] LABS: BACTERIA MODERATE /HPF (NONE SEEN); EPITHELIAL CELLS 0-5 /hpf (0-5); WHITE CELLS - URINE >50 HPF (0-4)
[2020-04-22 15:50] VITALS: BP 104/67
[2020-04-22 17:16] VITALS: BP 106/60
[2020-04-22 20:00] VITALS: BP 105/69
--- NOTE | 2020-04-22 21:30 | NUR ---
AFTER SEVERAL ATTEMPTS FROM 3 NURSES WAS UNABLE TO GAIN IV ACCSESS. WILL PUT IN FOR VASCULER ACCSESS.
[2020-04-23] VITALS (13 sets, daily range): BP systolic 81–115; BP diastolic 55–72; BMI 32.8; BMI 32.7
--- NOTE | 2020-04-23 03:06 | NUR ---
PT RESTING WITH EYES CLOSED RR EVEN AND UNLABORED. NO S/S OF DISTRESS AT THIS TIME. NO IV AT THIS TIME. CALLED ICU FOR ATTEMPT AT IV ACCSESS. WILL CONTINUE TO MONITOR.
[2020-04-23] MEDS ORDERED: ZOFRAN4 MG PO (03:26)
[2020-04-23] MEDS ORDERED: PROTONIX40 MG PO (03:51)
[2020-04-23 05:52] LABS: BASOPHILS 0.1 % (0-2); EOSINOPHILS 0.2 % (0-7); HEMATOCRIT 33.8 % (36.0-48.0); HEMOGLOBIN 10.7 g/dL (12-16); IMMATURE GRANULOCYTES 0.2 % (0-5); LYMPHOCYTES 14.1 % (15-50); MCH 28.2 pg (26.0-34.0); MCHC 31.7 g/dL (31.0-37.0); MCV 88.9 fL (80.0-100.0); MEAN PLATELET VOLUME 10.3 fL (7.4-10.4); MONOCYTES 7.6 % (2-11); NEUTROPHILS 77.8 % (40-80); PLATELET COUNT 324 10x3/uL (130-400); RDW 15.1 % (11.5-14.5); WBC 12.2 10x3/uL (4.8-10.8)
[2020-04-23 06:14] LABS: INR 1.12 (0.85-1.17); PROTIME 14.4 SECONDS (11.6-15.0)
[2020-04-23 06:15] LABS: APTT 47.7 SECONDS (22.8-39.4)
--- NOTE | 2020-04-23 06:16 | NUR ---
SPOKE WITH EMILY BURROWS CONCERNING PT IV ACCSESS. ORDER FOR MIDLINE CONSULT GIVEN BY DR. DIAZ. WILL CONTINUE TO MONITOR
[2020-04-23 06:26] LABS: ALBUMIN 2.4 g/dL (3.4-5.0); ANION GAP 16.7 mmol/L (8-16); BILIRUBIN - TOTAL 0.42 mg/dL (0.2-1.3); CALCIUM 9.4 mg/dL (8.5-10.1); CREATININE - SERUM 8.7 mg/dL (0.6-1.3); MAGNESIUM - SERUM 2.6 mg/dL (1.8-2.4); PHOSPHOROUS 4.9 mg/dL (2.5-4.9); POTASSIUM - SERUM 3.7 mmol/L (3.5-5.1); PROTEIN - SERUM 6.3 g/dL (6.4-8.2); THYROID STIMULATING HORMONE 5.97 uIU/mL (0.36-3.74)
--- NOTE | 2020-04-23 07:48 | NUR ---
CONSENTS FOR PARACENTESIS SIGNED AND PLACED IN CHART.
--- NOTE | 2020-04-23 10:24 | NUR ---
CALLED ER AND THEY STATED THEY HAVE NOT SEEN AMELIA CHRONIC DISEASE EPIDEMIOLOGIST ACCESS NURSE. CALLED AMELIA SALCIDO FOR THE THIRD TIME AND LEFT A VOICEMAIL. WILL AWAIT A CALL BACK.
--- NOTE | 2020-04-23 11:03 | NUR ---
SPOKE WITH WOOD TYPE CUTTER AND SHE STATES AMELIA VASCULAR ACCESS NURSE WON'T BE HERE TILL TOMORROW AND TO CALL THE MD AND ASK IF THEY WANT A CENTRAL LINE PLACED INSTEAD. PAGED DR. DIANE.
--- NOTE | 2020-04-23 11:08 | NUR ---
SPOKE WITH DR. DIANE AND STATES TO GET PIV AND TO NOT TO CENTRAL LINE. SHE STATES WHEN AMELIA TEACHER OF THE HANDICAPPED ACCESS NURSE WORKS THEN SHE CAN PLACE MIDLINE THEN IF PT DOES NOT HAVE PIV. I VERBALIZED UNDERSTANDING.
--- NOTE | 2020-04-23 11:27 | NUR ---
ICU NURSE INSERTED LEFT WRIST 22G IV. CALLED IR AND STATED TO THEM PT NOW HAS IV ACCESS. THEY VERBALIZED UNDERSTANDING.
--- NOTE | 2020-04-23 12:40 | NUR ---
COMPLETE BED BATH GIVEN BY STUDENT NURSES.
--- NOTE | 2020-04-23 14:05 | NUR ---
PT RETURNED FROM PARACENTESIS LAYING WITH HOB AT 20 DEGREES. ALERT AND ORIENTED. O2 AT 3L HIGH FLOW NC. RIGHT SIDE OF ABDOMEN DRESSING C/D/I. NURSE STATES THEY REMOVED 5900ML AND FLUID SENT TO LAB. VS STABLE. WILL COTNINUE TO MONITOR. BED LOW. CL IN REACH. PT RECEIVING ALBUMIN IV.
--- NOTE | 2020-04-23 15:36 | NUR ---
COVID SWAB DONE AND TAKEN TO LAB.
[2020-04-23 15:37] LABS: PROTEIN - BODY FLUID 4.6 G/DL
[2020-04-23 17:22] LABS: MACROPHAGES BF 36 %; NEUT - BF 12 %
--- NOTE | 2020-04-23 17:45 | NUR ---
I have reviewed this patient and I concur with the Shift Assessment completed by the Licensed Practical Nurse today this shift.
[2020-04-24] VITALS: BP 90/60
[2020-04-24 04:00] VITALS: BP 100/57
--- NOTE | 2020-04-24 07:53 | NUR ---
Report recieved pt resting in bed no complaints.
[2020-04-24 08:00] VITALS: BP 121/58
[2020-04-24 10:07] LABS: ALBUMIN 2.8 g/dL (3.4-5.0); ANION GAP 13.1 mmol/L (8-16); BILIRUBIN - TOTAL 0.34 mg/dL (0.2-1.3); CALCIUM 8.4 mg/dL (8.5-10.1); CARBON DIOXIDE 25.3 mmol/L (21.0-32.0); CREATININE - SERUM 9.1 mg/dL (0.6-1.3); MAGNESIUM - SERUM 2.6 mg/dL (1.8-2.4); PHOSPHOROUS 3.9 mg/dL (2.5-4.9); POTASSIUM - SERUM 3.4 mmol/L (3.5-5.1); PROTEIN - SERUM 5.4 g/dL (6.4-8.2)
[2020-04-24 10:22] LABS: BASOPHILS 0.2 % (0-2); EOSINOPHILS 4.1 % (0-7); IMMATURE GRANULOCYTES 0.2 % (0-5); LYMPHOCYTES 31.9 % (15-50); MCH 28.1 pg (26.0-34.0); MCHC 32.2 g/dL (31.0-37.0); MCV 87.5 fL (80.0-100.0); MEAN PLATELET VOLUME 10.1 fL (7.4-10.4); MONOCYTES 10.7 % (2-11); NEUTROPHILS 52.9 % (40-80); RDW 14.8 % (11.5-14.5)
[2020-04-24 10:35] LABS: HEMOGLOBIN 8.3 g/dL (12-16); RBC 2.95 10x6/uL (4.00-5.40); WBC 6.4 10x3/uL (4.8-10.8)
[2020-04-24 10:36] LABS: HEMATOCRIT 25.8 % (36.0-48.0); PLATELET COUNT 227 10x3/uL (130-400)
[2020-04-24 20:00] VITALS: BP 118/53
--- NOTE | 2020-04-24 22:28 | NUR ---
PATIENT'S LEFT WRIST PIV WAS LEAKING, REMOVED WITH CATH INTACT, PLACED NEW PIV TO RIGHT WRIST, 1 STICK PATIENT TOLERATED WELL. CALL LIGHT WITHIN REACH AND BED IN LOWEST LOCKED POSITION.
[2020-04-25] VITALS: BP 108/57; BP 146/59
[2020-04-25 07:50] VITALS: BP 127/63
[2020-04-25 08:07] LABS: ALBUMIN 2.8 g/dL (3.4-5.0); ANION GAP 13.8 mmol/L (8-16); BILIRUBIN - TOTAL 0.31 mg/dL (0.2-1.3); CALCIUM 8.4 mg/dL (8.5-10.1); CARBON DIOXIDE 26.3 mmol/L (21.0-32.0); CREATININE - SERUM 8.9 mg/dL (0.6-1.3); MAGNESIUM - SERUM 2.5 mg/dL (1.8-2.4); PHOSPHOROUS 3.4 mg/dL (2.5-4.9); POTASSIUM - SERUM 3.1 mmol/L (3.5-5.1); PROTEIN - SERUM 5.1 g/dL (6.4-8.2)
[2020-04-25 08:12] LABS: BASOPHILS 0.2 % (0-2); EOSINOPHILS 7.4 % (0-7); IMMATURE GRANULOCYTES 0.7 % (0-5); LYMPHOCYTES 28.9 % (15-50); MCH 28.1 pg (26.0-34.0); MCV 87.7 fL (80.0-100.0); MEAN PLATELET VOLUME 9.7 fL (7.4-10.4); MONOCYTES 13.2 % (2-11); NEUTROPHILS 49.6 % (40-80); PLATELET COUNT 209 10x3/uL (130-400); RBC 2.85 10x6/uL (4.00-5.40); RDW 14.8 % (11.5-14.5); WBC 5.4 10x3/uL (4.8-10.8)
--- NOTE | 2020-04-25 10:51 | MORECARE ---
CASE MANAGEMENT DISCHARGE SUMMARY PATIENT: RUCHI WOODS UNIT: [id number] ADM DATE: 04/22/20 AGE: 64 : 57 SEX: F ROOM/BED: D.2109 AUTHOR: JOSE ARAMBULA PHYSICIAN: REFERRING PHYSICIAN: THIAGO MILLIGAN MD DATE OF SERVICE: 04/25/20 Discharge Plan Patient Name: RUCHI WOODS [facility] [facility] 1955 Planned Disposition: Anticipated Discharge Date: Discharge Date: Expected LOS: Initial Reviewer: [email or web address] Initial Review Date: 04/25/2020 Generated: 04/25/20 11:51 am DCPIA - Discharge Planning Initial Assessment Updated by [email or web address]: Chloe Marley on 04/25/20 10:47 am * Is the patient Alert and Oriented? Yes * How many steps to enter\exit or inside your home? RAMP/0 * PCP Dr. Beaulieu * Pharmacy [facility] in [place] * Preadmission Environment Home Alone * ADLs Partial Dependent * Partial ADLs (Assistance needed) Ambulation Bathing Dressing Medication Management Transfers * Equipment Other Walker * Other Equipment Motorized wheelchair * List name and contact numbers for known caregivers / representatives who currently or will assist patient after discharge: Jose sebastian - [phone] * Verbal permission to speak to the caregivers and representatives has been obtained from the patient. Yes * Community resources currently utilized Home Health * Please name any agencies selected above. [facility] home health * Additional services required to return to the preadmission environment? Yes * Can the patient safely return to the preadmission environment? No * Has this patient been hospitalized within the prior 30 days at any hospital? Yes Patient Name: RUCHI WOODS Page 47480 at 1051 All edits/amendments must be made on the electronic document DICTATION DATE: 04/25/20 1051 LOCKSTITCH WAISTLINE JOINER: FOREST 04/25/20 1051 RPT#: [id number] DC DATE: STATUS: ADM IN [facility] [address] [place] [address] END OF REPORT
[2020-04-25 11:42] VITALS: BP 130/61
--- NOTE | 2020-04-25 11:46 | MORECARE ---
CASE MANAGEMENT DISCHARGE SUMMARY PATIENT: RUCHI WOODS UNIT: [id number] ADM DATE: 04/22/20 AGE: 64 : 57 SEX: F ROOM/BED: D.5875 AUTHOR: TYESHADOC PHYSICIAN: REFERRING PHYSICIAN: THIAGO MILLIGAN MD DATE OF SERVICE: 04/25/20 Discharge Plan Patient Name: RUCHI WOODS Facility: [facility]:[place] : 1955 Planned Disposition: Anticipated Discharge Date: Discharge Date: Expected LOS: Initial Reviewer: [email or web address] Initial Review Date: 04/25/2020 Generated: 04/25/20 12:45 pm Comments DCP- Discharge Planning Updated by [email or web address]: Chloe Marely on 04/25/20 10:[address] Patient Name: RUCHI WOODS Admission Status: ER Accout number: [id number] Admission Date: 04-22-2020 : 1955 Admission Diagnosis:URINARY TRACT INFECTION, SITE NOT SPECIFIED Attending: THIAGO MILLIGAN Current LOS: 3 Anticipated DC Date: Planned Disposition: Primary Insurance: MEDICAID [place] Discharge Planning Comments: CM met with patient to complete initial dc planning assessment. CM educated patient on the CM role and verbal consent given by patient to complete assessment. Patient lives at home alone, states her nephew lives on the same property and helps her with needs. CM discussed availability of home health, rehab services, and medical equipment. I informed her that her insurance would not cover SNF. The only inpatient rehab that could possibly consider her is [facility]. She states she has been there before and would like a referral. She refuses chcf placement. States if [facility] cannot except, she would go home with resumption of [facility] health. She does not have oxygen at home, would need a room air sat prior to discharge to assess for home oxygen needs. CM will continue to follow and will assist as needed with dc plans/needs. Mining Teacher: Chloe Marley DCPIA - Discharge Planning Initial Assessment Updated by [email or web address]: Chloe Marley on 04/25/20 10:47 am * Is the patient Alert and Oriented? Yes * How many steps to enter\exit or inside your home? RAMP/0 * PCP Dr. Beaulieu * Pharmacy [facility] in [place] * Preadmission Environment Home Alone * ADLs Partial Dependent * Partial ADLs (Assistance needed) Ambulation Bathing Dressing Medication Management Transfers * Equipment Other Walker * Other Equipment Motorized wheelchair * List name and contact numbers for known caregivers / representatives who currently or will assist patient after discharge: Jose sebastian - [phone] * Verbal permission to speak to the caregivers and representatives has been obtained from the patient. Yes * Community resources currently utilized Home Health * Please name any agencies selected above. [facility] home health * Additional services required to return to the preadmission environment? Yes * Can the patient safely return to the preadmission environment? No * Has this patient been hospitalized within the prior 30 days at any hospital? Yes Last DP export: 04/25/20 9:51 a Patient Name: RUCHI WOODS Page [id number] at 1146 All edits/amendments must be made on the electronic document DICTATION DATE: 04/25/20 1146 AUTO PAINTER: FOREST 04/25/20 1146 RPT#: [id number] DC DATE: STATUS: ADM IN [facility] [address] [place] [address] END OF REPORT
--- NOTE | 2020-04-25 11:53 | MORECARE ---
CASE MANAGEMENT DISCHARGE SUMMARY PATIENT: RUCHI WOODS UNIT: [id number] ADM DATE: 04/22/20 AGE: 64 : 57 SEX: F ROOM/BED: D.7767 AUTHOR: JOSE ARAMBULA PHYSICIAN: REFERRING PHYSICIAN: THIAGO MILLIGAN MD DATE OF SERVICE: 04/25/20 Discharge Plan Patient Name: RUCHI WOODS Facility: [facility]:[place] : 1955 Planned Disposition: Anticipated Discharge Date: Discharge Date: Expected LOS: Initial Reviewer: [email or web address] Initial Review Date: 04/25/2020 Generated: 04/25/20 12:53 pm Comments DCP- Discharge Planning Updated by [email or web address]: Chloe Marley on 04/25/20 10:[address] Clinical faxed to [facility] for review. CM will continue to follow and assist with discharge needs. DCP- Discharge Planning Updated by [email or web address]: Chloe Marlye on 04/25/20 10:[address] Patient Name: RUCHI WOODS Admission Status: ER Accout number: [id number] Admission Date: 04-22-2020 : 1955 Admission Diagnosis:URINARY TRACT INFECTION, SITE NOT SPECIFIED Attending: THIAGO MILLIGAN Current LOS: 3 Anticipated DC Date: Planned Disposition: Primary Insurance: MEDICAID [place] Discharge Planning Comments: CM met with patient to complete initial dc planning assessment. CM educated patient on the CM role and verbal consent given by patient to complete assessment. Patient lives at home alone, states her nephew lives on the same property and helps her with needs. CM discussed availability of home health, rehab services, and medical equipment. I informed her that her insurance would not cover SNF. The only inpatient rehab that could possibly consider her is [facility] on [facility]. She states she has been there before and would like a referral. She refuses jail placement. States if [facility] [employer] cannot except, she would go home with resumption of [facility] health. She does not have oxygen at home, would need a room air sat prior to discharge to assess for home oxygen needs. CM will continue to follow and will assist as needed with dc plans/needs. Distribution Sales Manager: Chloe Marley DCPIA - Discharge Planning Initial Assessment Updated by [email or web address]: Chloe Marley on 04/25/20 10:47 am * Is the patient Alert and Oriented? Yes * How many steps to enter\exit or inside your home? RAMP/0 * PCP Dr. Beaulieu * Pharmacy [facility] in [place] * Preadmission Environment Home Alone * ADLs Partial Dependent * Partial ADLs (Assistance needed) Ambulation Bathing Dressing Medication Management Transfers * Equipment Other Walker * Other Equipment Motorized wheelchair * List name and contact numbers for known caregivers / representatives who currently or will assist patient after discharge: Jose sebastian - [phone] * Verbal permission to speak to the caregivers and representatives has been obtained from the patient. Yes * Community resources currently utilized Home Health * Please name any agencies selected above. [facility] health * Additional services required to return to the preadmission environment? Yes * Can the patient safely return to the preadmission environment? No * Has this patient been hospitalized within the prior 30 days at any hospital? Yes External Providers External Provider: [facility] Next Contact Date: Service Request Date: Service Type: Resolution: Reviewer: Comments: Coverage Notice Reviewer: [id number] - Chloe Marley Notice Issued Date-Time: 04/25/2020 11:52 Notice Type: Patient Choice Letter Notice Delivered To: Patient Relationship to Patient: Self Staff Pharmacist Name: Delivery Method: HAND - Hand Delivered Edel Days: Prior Verbal Notification: Recipient Understood Notice: Yes Recipient Signature: Yes Med Rec Note Co-signed by Attending: Coverage Notice Comment: TENISHA FOR [facility] Last DP export: 04/25/20 10:46 a Patient Name: RUCHI WOODS Page 67824 at 1153 All edits/amendments must be made on the electronic document DICTATION DATE: 04/25/20 1153 ELECTRICAL ELECTRONICS TECHNICIAN: FOREST 04/25/20 1153 RPT#: [id number] DC DATE: STATUS: ADM IN [facility] [address] [place] [address] END OF REPORT
--- NOTE | 2020-04-25 12:41 | NUR ---
Nutrition Follow-up: Pt unavailable at time of visit this AM. Chart reviewed. Ate ~25% of breakfast this AM. S/p paracentesis on 04/23 (-5.9 L). Diet: Renal ADA Wt: 185# (04/23) Labs noted: Na 135, K+ 3.1, Ca 8.4, Mg 2.5, Alb 2.8, PO4 3.4 Meds noted: Ferrlecit, Albumin, Florajen, Carafate, NS @ KVO, electrolyte protocol -Encourage PO intake and honor food preferences within diet restrictions. -Need new wt; noted daily wts ordered. -RD following.
[2020-04-25 15:00] VITALS: BP 133/70
--- NOTE | 2020-04-25 15:59 | MORECARE ---
CASE MANAGEMENT DISCHARGE SUMMARY PATIENT: RUCHI WOODS UNIT: [id number] ADM DATE: 04/22/20 AGE: 64 : 57 SEX: F ROOM/BED: D.7794 AUTHOR: JOSE ARAMBULA PHYSICIAN: REFERRING PHYSICIAN: THIAGO MILLIGAN MD DATE OF SERVICE: 04/25/20 Discharge Plan Patient Name: RUCHI WOODS Facility: [facility]:[place] : 1955 Planned Disposition: Anticipated Discharge Date: Discharge Date: Expected LOS: Initial Reviewer: [id number] Initial Review Date: 04/25/2020 Generated: 04/25/20 4:58 pm Comments DCP- Discharge Planning Updated by [email or web address]: Chloe Ayaka on 04/25/20 2:[address] I received a call from Irma with [facility] rehab. Irma states that she has enough available days that they can accept her if she is able to participate in therapy more. I spoke with the patient and encouraged her to work as much as she can with therapy. CM will continue to send therapy notes daily to [facility]. DCP- Discharge Planning Updated by [email or web address]: Chole Marley on 04/25/20 10:[address] Clinical faxed to [facility] for review. CM will continue to follow and assist with discharge needs. DCP- Discharge Planning Updated by [email or web address]: Chloe Marley on 04/25/20 10:[address] Patient Name: RUCHI WOODS Admission Status: ER Accout number: [id number] Admission Date: 04-22-2020 : 1955 Admission Diagnosis:URINARY TRACT INFECTION, SITE NOT SPECIFIED Attending: THIAGO MILLIGAN Current LOS: 3 Anticipated DC Date: Planned Disposition: Primary Insurance: MEDICAID [place] Discharge Planning Comments: CM met with patient to complete initial dc planning assessment. CM educated patient on the CM role and verbal consent given by patient to complete assessment. Patient lives at home alone, states her nephew lives on the same property and helps her with needs. CM discussed availability of home health, rehab services, and medical equipment. I informed her that her insurance would not cover SNF. The only inpatient rehab that could possibly consider her is [facility] on [address]. She states she has been there before and would like a referral. She refuses fpc placement. States if [facility] cannot except, she would go home with resumption of [facility] health. She does not have oxygen at home, would need a room air sat prior to discharge to assess for home oxygen needs. CM will continue to follow and will assist as needed with dc plans/needs. Food And Nutrition Services Supervisor: Chloe Marley DCPIA - Discharge Planning Initial Assessment Updated by [email or web address]: Chloe Marley on 04/25/20 10:47 am * Is the patient Alert and Oriented? Yes * How many steps to enter\exit or inside your home? RAMP/0 * PCP Dr. Beaulieu * Pharmacy [facility] in [place] * Preadmission Environment Home Alone * ADLs Partial Dependent * Partial ADLs (Assistance needed) Ambulation Bathing Dressing Medication Management Transfers * Equipment Other Walker * Other Equipment Motorized wheelchair * List name and contact numbers for known caregivers / representatives who currently or will assist patient after discharge: Jose jaz - [phone] * Verbal permission to speak to the caregivers and representatives has been obtained from the patient. Yes * Community resources currently utilized Home Health * Please name any agencies selected above. [facility] home health * Additional services required to return to the preadmission environment? Yes * Can the patient safely return to the preadmission environment? No * Has this patient been hospitalized within the prior 30 days at any hospital? Yes Coverage Notice Reviewer: [id number] - Chloe Marley Notice Issued Date-Time: 04/25/2020 11:52 Notice Type: Patient Choice Letter Notice Delivered To: Patient Relationship to Patient: Self Heel Buffer Name: Delivery Method: HAND - Hand Delivered Edel Days: Prior Verbal Notification: Recipient Understood Notice: Yes Recipient Signature: Yes Med Rec Note Co-signed by Attending: Coverage Notice Comment: TENISHA FOR [facility] Last DP export: 04/25/20 10:53 a Patient Name: RUCHI WOODS Page 85798 at 1559 All edits/amendments must be made on the electronic document DICTATION DATE: 04/25/20 5943 QUALITY DIRECTOR: FOREST 04/25/20 8857 RPT#: [id number] DC DATE: STATUS: ADM IN [facility] [address] [place] [address] END OF REPORT
--- NOTE | 2020-04-25 17:03 | NUR ---
OT NOTE: PT COMPLETED SUPINE TO SIT WITH MAX A. PT COMPLETED EOB SITTING WITH MIN A. PT COMPLETED SIT TO STAND WITH MIN A. PT COMPLETED SIDE STEPPING WITH MIN A. PT COMPLETED UE AROM TOLERATED. PT COMPLETED BARBER SOCKS WITH TOTAL A. 5-621 THANK YOU,ARIANNE MARTINEZ
[2020-04-25 18:02] VITALS: BP 151/79
--- NOTE | 2020-04-25 20:08 | NUR ---
REPORT RECIEVED AND ROUNDING COMPLETE. PATIENT SITTIN GIN BED IN HIGH FOWLERS, SHE IS IN A FUNKY MOOD SHE STATES SHE HAS SOME GOOD NEWS AND BAD NEWS AND DOESNT KNOW HOW TO FEEL ABOUT ALL THE NEWS SHE HAS RECIEVED. STATES SHE HAS A LOT TO THINK ABOUT, SHE VOICED NO NEEDS AT THIS TIME. NO DISTRESS NOTED. CALL LIGHT WITHIN REACH AND BED IN LOWEST LOCKED POSITION. LEFT WRIST PIV THAT IS PATENT AND HAS FLUIDS RUNNING AT KVO. WEARING NASAL CANNULA (HIGH FOW) WITH O2 AT 3L.
[2020-04-25 22:51] VITALS: BP 100/40
[2020-04-26 04:00] VITALS: BP 153/75
[2020-04-26 04:51] LABS: BASOPHILS 0.2 % (0-2); EOSINOPHILS 5.9 % (0-7); HEMATOCRIT 26.9 % (36.0-48.0); HEMOGLOBIN 8.4 g/dL (12-16); IMMATURE GRANULOCYTES 0.2 % (0-5); LYMPHOCYTES 31.5 % (15-50); MCH 27.5 pg (26.0-34.0); MCHC 31.2 g/dL (31.0-37.0); MCV 87.9 fL (80.0-100.0); MEAN PLATELET VOLUME 9.5 fL (7.4-10.4); MONOCYTES 11.7 % (2-11); NEUTROPHILS 50.5 % (40-80); PLATELET COUNT 214 10x3/uL (130-400); RBC 3.06 10x6/uL (4.00-5.40); WBC 6.4 10x3/uL (4.8-10.8)
[2020-04-26 05:14] LABS: ANION GAP 15.6 mmol/L (8-16); BILIRUBIN - TOTAL 0.32 mg/dL (0.2-1.3); CALCIUM 8.4 mg/dL (8.5-10.1); CARBON DIOXIDE 23.5 mmol/L (21.0-32.0); CREATININE - SERUM 8.6 mg/dL (0.6-1.3); MAGNESIUM - SERUM 2.4 mg/dL (1.8-2.4); PHOSPHOROUS 3.2 mg/dL (2.5-4.9); POTASSIUM - SERUM 3.1 mmol/L (3.5-5.1); PROTEIN - SERUM 5.4 g/dL (6.4-8.2)
[2020-04-26 07:54] VITALS: BP 156/78
[2020-04-26 11:29] VITALS: BP 165/87
--- NOTE | 2020-04-26 12:22 | NUR ---
OT NOTE: PT WITH NUMEROUS COMPLAINTS REGARDING CATHATER AND BACK PAIN. PT ABLE TO PERFORM BED MOB INCLUDING SUPINE TO SIT WITH MOD ASSIST AND EXTENDED TIME. AROM EXS WHILE ON SIDE OF BED. SIT TO STAND WITH MOD ASSIST. ABLE TO AMB WITH MIN ASSIST X 2 AND USE OF WALKER APPROX 10-12 FT WITH 2 REST BREAKS. PT VERY FATIGUED AND REPORTED SEVERE WEAKNESS IN B LES.. 02 SATS REMAINED ABOVE 93% WITHOUT USE OF 02. BACK TO BED WITH MOD/MAX ASSIST. MAX ASSIST WITH LE DRESSING; SET UP WITH FEEDING AND GROOMING. PT WAS ABLE TO SCOOT UP IN BED WITHOUT ASSIST TODAY BY USING LES AND BED RAILS. PT STATES THAT SHE HAS BEEN PRACTICING THIS. CHRISTIANO LILLY, OTR/L [phone]
[2020-04-26 16:16] VITALS: BP 183/97
--- NOTE | 2020-04-26 17:42 | NUR ---
OT NOTE: PT COMPLETED BED MOB TASKS WITH CGA/MIN A. PT COMPLETED SIMPLE UB HYGIENE WITH SETUP. [phone] THANK YOU,ARIANNE MARTINEZ
--- NOTE | 2020-04-26 20:00 | NUR ---
PATIENT RESTING IN BED. NO S/S OF ACUTE DISTRESS. PATIENT C/O PAIN BECAUSE OF BEING CONSTIPATED AND THE DALAL CATHETER. I CHECKED THE DALAL CATHETER AND IT WAS IN PLACE, NOT PULLING, IN STAT-LOC. I ASKED IF THE PATIENT WANTED SOME PRUNE JUICE AND SHE SAID NO BECAUSE SHE COMPLAINED OF THROWING UP TODAY-BECUASE OF THE CONSTIPATION. I ASKED IF PATIENT WANTED SOME PAIN MEDS, AND SHE STATED "THAT'S WHAT MADE ME CONSTIPATED IN THE FIRST PLACE-NO". PATIENT HAS RIGHT WRIST IV, SALINE LOC. IV IS PATENT WITHOUT REDNESS, SWELLING, OR TENDERNESS. CALL LIGHT WITHIN REACH. WILL CONTINUE TO MONITOR.
[2020-04-26 20:17] VITALS: BP 160/84
[2020-04-26 22:43] VITALS: BP 131/68
--- NOTE | 2020-04-27 04:04 | NUR ---
I have reviewed this patient and I concur with the Shift Assessment completed by the Licensed Practical Nurse today this shift.
[2020-04-27 05:33] VITALS: BP 130/70
[2020-04-27 06:03] LABS: HEMATOCRIT 29.2 % (36.0-48.0); HEMOGLOBIN 9.4 g/dL (12-16); IMMATURE GRANULOCYTES 0.5 % (0-5); MCH 28.3 pg (26.0-34.0); MCHC 32.2 g/dL (31.0-37.0); MEAN PLATELET VOLUME 9.9 fL (7.4-10.4); PLATELET COUNT 229 10x3/uL (130-400); RBC 3.32 10x6/uL (4.00-5.40); RDW 15.3 % (11.5-14.5); WBC 7.6 10x3/uL (4.8-10.8)
[2020-04-27 06:36] LABS: BASOPHILS 1 % (0-2); EOSINOPHILS 8 % (0-7); LYMPHOCYTES 31 % (15-50); MONOCYTES 7 % (2-11); NEUTROPHILS 53 % (40-80)
[2020-04-27 06:37] LABS: ALBUMIN 2.9 g/dL (3.4-5.0); ANION GAP 16.7 mmol/L (8-16); BILIRUBIN - TOTAL 0.46 mg/dL (0.2-1.3); CALCIUM 8.6 mg/dL (8.5-10.1); CARBON DIOXIDE 23.1 mmol/L (21.0-32.0); CREATININE - SERUM 8.1 mg/dL (0.6-1.3); MAGNESIUM - SERUM 2.2 mg/dL (1.8-2.4); PHOSPHOROUS 2.7 mg/dL (2.5-4.9); PLATELET ESTIMATE NORMAL; POTASSIUM - SERUM 3.8 mmol/L (3.5-5.1); PROTEIN - SERUM 5.5 g/dL (6.4-8.2)
[2020-04-27 08:31] VITALS: BP 146/77
[2020-04-27 11:45] VITALS: BP 163/79
--- NOTE | 2020-04-27 12:05 | NUR ---
AT 0802 THIS AM ALBUMIN STARTED TO RT WRIST--IV SITE LEAKING--IV REMOVED--ATTEMPTED RESTART X'S 2 W/O SUCCESS--GUILLERMO/RN NOTIFIED AND ATTEMPTED RESTART W/O SUCCESS--PT AWAITING IV SITE.
--- NOTE | 2020-04-27 14:39 | NUR ---
IV SITE OBTAINED AT THIS TIME TO RIGHT AC W/20GA--PT TOLERATED WELL--MERRUM STARTED AT THIS TIME
[2020-04-27 16:26] VITALS: BP 122/65
[2020-04-27 20:48] VITALS: BP 131/68
[2020-04-28 00:06] VITALS: BP 108/63
[2020-04-28 05:34] VITALS: BP 135/81
[2020-04-28 07:47] LABS: MAGNESIUM - SERUM 2.3 mg/dL (1.8-2.4); PHOSPHOROUS 3.1 mg/dL (2.5-4.9)
[2020-04-28 08:23] VITALS: BP 139/74
[2020-04-28 10:12] LABS: BASOPHILS 0.7 % (0-2); EOSINOPHILS 1.7 % (0-7); HEMATOCRIT 26.1 % (36.0-48.0); HEMOGLOBIN 8.5 g/dL (12-16); IMMATURE GRANULOCYTES 0.8 % (0-5); LYMPHOCYTES 22.8 % (15-50); MCH 28.2 pg (26.0-34.0); MCHC 32.6 g/dL (31.0-37.0); MCV 86.7 fL (80.0-100.0); MEAN PLATELET VOLUME 9.6 fL (7.4-10.4); MONOCYTES 9.6 % (2-11); NEUTROPHILS 64.4 % (40-80); RBC 3.01 10x6/uL (4.00-5.40); RDW 15.1 % (11.5-14.5); WBC 8.8 10x3/uL (4.8-10.8)
[2020-04-28 10:14] LABS: PLATELET COUNT 140 10x3/uL (130-400)
[2020-04-28 10:28] LABS: ANION GAP 19.1 mmol/L (8-16); CALCIUM 8.7 mg/dL (8.5-10.1); CARBON DIOXIDE 20.1 mmol/L (21.0-32.0); CREATININE - SERUM 8.3 mg/dL (0.6-1.3); POTASSIUM - SERUM 4.2 mmol/L (3.5-5.1)
--- NOTE | 2020-04-28 10:39 | NUR ---
ASSISTED UP TO CHAIR WITH PT ASSIST.
[2020-04-28 12:19] VITALS: BP 127/67
[2020-04-28 16:00] VITALS: BP 141/84
--- NOTE | 2020-04-28 18:53 | NUR ---
PATIENT RESTING IN BED WITH NO S/S OF DISTRESS AND DENIES NEEDS AT THIS TIME. BED IN LOWEST POSITION AND CALL LIGHT WITHIN REACH. ENCOURAGED THE PATIENT TO CALL IF SHE HAS NEEDS. WILL CONTINUE TO MONITOR.
[2020-04-28 21:02] VITALS: BP 157/88
--- NOTE | 2020-04-28 21:14 | NUR ---
ADMINISTERED MEDS PER ORDERS. DENIES NEEDS AT THIS TIME. WILL CONTINUE TO MONITOR.
[2020-04-29 00:45] VITALS: BP 130/80
[2020-04-29 04:37] VITALS: BP 142/71
[2020-04-29 07:00] LABS: ANION GAP 18.5 mmol/L (8-16); CALCIUM 8.9 mg/dL (8.5-10.1); CARBON DIOXIDE 22.2 mmol/L (21.0-32.0); CREATININE - SERUM 8.2 mg/dL (0.6-1.3); POTASSIUM - SERUM 3.7 mmol/L (3.5-5.1)
[2020-04-29 07:11] LABS: INR 1.55 (0.85-1.17); PROTIME 18.4 SECONDS (11.6-15.0)
[2020-04-29 07:32] LABS: BASOPHILS 0.1 % (0-2); EOSINOPHILS 1.1 % (0-7); IMMATURE GRANULOCYTES 0.3 % (0-5); LYMPHOCYTES 18.1 % (15-50); MCH 27.9 pg (26.0-34.0); MCV 87.1 fL (80.0-100.0); MEAN PLATELET VOLUME 9.5 fL (7.4-10.4); MONOCYTES 7.5 % (2-11); NEUTROPHILS 72.9 % (40-80); PLATELET COUNT 153 10x3/uL (130-400); RBC 2.87 10x6/uL (4.00-5.40); WBC 10.4 10x3/uL (4.8-10.8)
[2020-04-29 07:50] VITALS: BP 153/75; BP 88/43
--- NOTE | 2020-04-29 08:31 | MORECARE ---
CASE MANAGEMENT DISCHARGE SUMMARY PATIENT: RUCHI WOODS UNIT: [id number] ADM DATE: 04/22/20 AGE: 64 : 57 SEX: F ROOM/BED: D.7671 AUTHOR: JOSE ARAMBULA PHYSICIAN: REFERRING PHYSICIAN: THIAGO MILLIGAN MD DATE OF SERVICE: 04/29/20 Discharge Plan Patient Name: RUCHI WOODS Facility: [facility]:[place] : 1955 Planned Disposition: Anticipated Discharge Date: Discharge Date: Expected LOS: Initial Reviewer: [email or web address] Initial Review Date: 04/25/2020 Generated: 04/29/20 9:30 am Comments DCP- Discharge Planning Updated by [email or web address]: Chloe Marley on 04/29/20 7:[address] Updated notes faxed to [facility]. DCP- Discharge Planning Updated by [id number]: Chloe Marley on 04/25/20 2:[address] I received a call from Irma with [facility] rehab. Irma states that she has enough available days that they can accept her if she is able to participate in therapy more. I spoke with the patient and encouraged her to work as much as she can with therapy. CM will continue to send therapy notes daily to [facility]. DCP- Discharge Planning Updated by [email or web address]: Chloe Marley on 04/25/20 10:[address] Clinical faxed to [facility] for review. CM will continue to follow and assist with discharge needs. DCP- Discharge Planning Updated by [email or web address]: Chloe Marley on 04/25/20 10:[address] Patient Name: RUCHI WOODS Admission Status: ER Accout number: [id number] Admission Date: 04-22-2020 : 1955 Admission Diagnosis:URINARY TRACT INFECTION, SITE NOT SPECIFIED Attending: THIAGO MILLIGAN Current LOS: 3 Anticipated DC Date: Planned Disposition: Primary Insurance: MEDICAID [place] Discharge Planning Comments: CM met with patient to complete initial dc planning assessment. CM educated patient on the CM role and verbal consent given by patient to complete assessment. Patient lives at home alone, states her nephew lives on the same property and helps her with needs. CM discussed availability of home health, rehab services, and medical equipment. I informed her that her insurance would not cover SNF. The only inpatient rehab that could possibly consider her is [facility] [address]. She states she has been there before and would like a referral. She refuses snf placement. States if [facility] cannot except, she would go home with resumption of [facility] home health. She does not have oxygen at home, would need a room air sat prior to discharge to assess for home oxygen needs. CM will continue to follow and will assist as needed with dc plans/needs. Commercial Decorator: Chloe Marley DCPIA - Discharge Planning Initial Assessment Updated by [email or web address]: Chloe Marley on 04/25/20 10:47 am * Is the patient Alert and Oriented? Yes * How many steps to enter\exit or inside your home? RAMP/0 * PCP Dr. Beaulieu * Pharmacy [facility] in [place] * Preadmission Environment Home Alone * ADLs Partial Dependent * Partial ADLs (Assistance needed) Ambulation Bathing Dressing Medication Management Transfers * Equipment Other Walker * Other Equipment Motorized wheelchair * List name and contact numbers for known caregivers / representatives who currently or will assist patient after discharge: Jose sebastian - [phone] * Verbal permission to speak to the caregivers and representatives has been obtained from the patient. Yes * Community resources currently utilized Home Health * Please name any agencies selected above. [facility] home health * Additional services required to return to the preadmission environment? Yes * Can the patient safely return to the preadmission environment? No * Has this patient been hospitalized within the prior 30 days at any hospital? Yes Coverage Notice Reviewer: [id number] - Chloe Marley Notice Issued Date-Time: 04/25/2020 11:52 Notice Type: Patient Choice Letter Notice Delivered To: Patient Relationship to Patient: Self Shop Superintendent Name: Delivery Method: HAND - Hand Delivered Edel Days: Prior Verbal Notification: Recipient Understood Notice: Yes Recipient Signature: Yes Med Rec Note Co-signed by Attending: Coverage Notice Comment: TENISHA FOR [facility] Last DP export: 04/25/20 2:59 p Patient Name: RUCHI WOODS Page 37531 at 0831 All edits/amendments must be made on the electronic document DICTATION DATE: 04/29/20829 STUDENT LIFE ADVISOR: FOREST 04/29/20829 RPT#: [id number] DC DATE: STATUS: ADM IN [facility] [address] [place] [address] END OF REPORT
[2020-04-29 12:01] VITALS: BP 136/60
[2020-04-29 15:37] VITALS: BP 144/76
[2020-04-29 20:00] VITALS: BP 150/85
[2020-04-30] VITALS: BP 128/74
--- NOTE | 2020-04-30 03:21 | NUR ---
PT COMPLAINS OF N/V. EMESIS DARK GREEN/BLACK 200-300ML. PT NOT HUNGRY AND VERY THIRSTY FOR WATER. WATER AND PRN ZOFRAN GIVEN. PT COMPLAINS THAT SHE WOULD LIKE TO GET OUT OF BED AND TO BEDSIDE CHAIR. SHE IS HAVING DIFFICULTY GETTING COMFORTABLE. A/O X4, RR EVN AND UNLABORED. VITALS STABLE. BED LOW CALL LIGHT WITHIN REACH. WILL CONTINUE TO MONITOR.
--- NOTE | 2020-04-30 04:57 | NUR ---
I have reviewed this patient and I concur with the Shift Assessment completed by the Licensed Practical Nurse today this shift.
[2020-04-30 06:59] VITALS: BP 124/76
[2020-04-30 07:16] LABS: BASOPHILS 0.1 % (0-2); EOSINOPHILS 0.4 % (0-7); HEMATOCRIT 26.1 % (36.0-48.0); HEMOGLOBIN 8.4 g/dL (12-16); IMMATURE GRANULOCYTES 0.2 % (0-5); LYMPHOCYTES 9.2 % (15-50); MCH 27.8 pg (26.0-34.0); MCHC 32.2 g/dL (31.0-37.0); MCV 86.4 fL (80.0-100.0); MEAN PLATELET VOLUME 9.5 fL (7.4-10.4); MONOCYTES 6.8 % (2-11); NEUTROPHILS 83.3 % (40-80); RBC 3.02 10x6/uL (4.00-5.40); RDW 15.1 % (11.5-14.5); WBC 10.3 10x3/uL (4.8-10.8)
[2020-04-30 07:25] LABS: PLATELET COUNT 120 10x3/uL (130-400)
[2020-04-30 07:37] LABS: ANION GAP 18.4 mmol/L (8-16); CALCIUM 8.9 mg/dL (8.5-10.1); CARBON DIOXIDE 23.2 mmol/L (21.0-32.0); CREATININE - SERUM 8.2 mg/dL (0.6-1.3); POTASSIUM - SERUM 3.6 mmol/L (3.5-5.1)
--- NOTE | 2020-04-30 08:55 | NUR ---
SHE IS ALERT, TOOK MEDICATIONS WITHOUT ANY PROBLEMS. HER RIGHT 5TH TOE IS BLACK AT THE TIP, HER SKIN IS DRY, THE RIGHT HEEL IS RED, AND HAS A ENOCH, SCAB ON THE BACK OF HER RIGHT CALF. HE DENIES ANY NAUSEA AT THIS TIME. THE CALL LIGHT IS WITHIN REACH.
[2020-04-30 12:05] VITALS: BP 136/69
--- NOTE | 2020-04-30 13:25 | NUR ---
Nutrition Follow-up: Decreased appetite with N/V this AM. Noted pt refusing dialysis and not wanting hospice. S/p paracentesis yesterday (-3.7 L). Diet: Renal No new wt; last wt: 185# (04/23) Last BM: 04/29 Labs reviewed Meds noted: Bumex, Colace, Mylicon, Protonix, Albumin, Florajen, Zofran, NS @ KVO, electrolyte protocol -Encourage PO intake and honor food preferences within diet restrictions. -Offer nutrition supplements. -Need new wt; noted daily wts ordered. -RD following.
--- NOTE | 2020-04-30 13:39 | NUR ---
OT NOTE: PT PERFORMED WELL TODAY. PT SITTING IN LONG SITTING IN BED; ABLE TO GET TO SIDE OF BED WITH MIN ASSIST AND EXTENDED TIME. SIT TO STAND WITH MIN ASSIST X 2 WITH USE OF WALKER; PT ABLE TO TAKE APPROX 5-6 STEPS WITH WALKER FROM BED TO CHAIR; ABLE TO PERFORM GROOMING TASKS WHILE SITTING UP IN CHAIR; MOD ASSIST TO BARBER/DOFF SOCKS; EDUCATED ON EXS TO PERFORM WHILE UP IN CHAIR; PT MUCH MORE MOTIVATED THAN PREVIOUSLTY. CHRISTIANO LILLY, OTR/L [phone]
--- NOTE | 2020-04-30 16:09 | NUR ---
OT NOTE: PT COMPLETED BED MOB TASKS WITH MIN A. PT COMPLETED SUPINE TO SIT WITH MIN A. PT COMPLETED EOB SITTING WITH CGA. PT COMPLETED UE AROM WITH FUNCTIIONAL TASKS. [phone] THANK YOU,ARIANNE MARTINEZ
[2020-04-30 16:20] VITALS: BP 128/68; BP 140/85
--- NOTE | 2020-04-30 19:00 | NUR ---
REPORT RECEIVED, WILL CONTINUE POC. PATIENT IS AAOX4, SITTING UP IN BED. NO S/S OF DISTRESS OBSERVED, RR EVEN AND UNLABORED ON ROOM AIR. PIV TO RT AC, PATENT, INFUSING NS @ 30ML/HR. F/C PATENT, DRAINING YELLOW URINE BY GRAVITY TO RT SIDE OF BED. PATIENT DENIES NEEDS AT THIS TIME. CL IN REACH, BED LOCKED AND LOWERED. WILL CTM.
[2020-04-30 20:00] VITALS: BP 130/68; BP 136/74
[2020-05-01 04:00] VITALS: BP 132/73
[2020-05-01 06:21] LABS: BASOPHILS 0.1 % (0-2); EOSINOPHILS 0.3 % (0-7); HEMATOCRIT 25.4 % (36.0-48.0); HEMOGLOBIN 8.2 g/dL (12-16); IMMATURE GRANULOCYTES 0.3 % (0-5); LYMPHOCYTES 10.4 % (15-50); MCH 27.6 pg (26.0-34.0); MCHC 32.3 g/dL (31.0-37.0); MCV 85.5 fL (80.0-100.0); MEAN PLATELET VOLUME 10.5 fL (7.4-10.4); MONOCYTES 6.3 % (2-11); NEUTROPHILS 82.6 % (40-80); PLATELET COUNT 108 10x3/uL (130-400); RBC 2.97 10x6/uL (4.00-5.40); RDW 15.1 % (11.5-14.5); WBC 11.6 10x3/uL (4.8-10.8)
[2020-05-01 06:28] LABS: ANION GAP 18.2 mmol/L (8-16); CALCIUM 9.4 mg/dL (8.5-10.1); CARBON DIOXIDE 22.9 mmol/L (21.0-32.0); POTASSIUM - SERUM 3.1 mmol/L (3.5-5.1)
[2020-05-01 11:10] VITALS: BP 148/83
--- NOTE | 2020-05-01 13:04 | NUR ---
I CALLED AMINTA FONTANA APN TO LET HER KNOW THAT PATIENT WANTS DIALYSIS NOW PER CM SHE CAN NOT GO TO [facility] AND TIEN REFUSES SNF. WILBER LEMOS IS ON THE PHONE WITH DR GARAY.
--- NOTE | 2020-05-01 13:53 | MORECARE ---
CASE MANAGEMENT DISCHARGE SUMMARY PATIENT: RUCHI WOODS UNIT: [id number] ADM DATE: 04/22/20 AGE: 64 : 57 SEX: F ROOM/BED: D.7045 AUTHOR: TYESHA,DOC PHYSICIAN: REFERRING PHYSICIAN: THIAGO MILLIGAN MD DATE OF SERVICE: 05/01/20 Discharge Plan Patient Name: RUCHI WOODS Facility: [facility]:[place] : 1955 Planned Disposition: Anticipated Discharge Date: Discharge Date: Expected LOS: Initial Reviewer: [email or web address] Initial Review Date: 04/25/2020 Generated: 05/01/20 2:52 pm Comments DCP- Discharge Planning Updated by [id number]: Chloe Marley on 05/01/20 12:[address] After 3rd call to [facility], I reached Nasra. Nasra states she is now down to 5 days of rehab and they would not be able to accept patient. I spoke with the patient about termite control service representative care. She does not want termite control service representative care, she would like to go home with [facility]. She is telling me she has changed her mind about dialysis and now would like to be started on dialysis. I notified Soumya and she is calling nephrology. I notified Jostin Beckwith APN. CM will continue to follow and assist with discharge planning/needs. DCP- Discharge Planning Updated by [email or web address]: Chloe Marley on 04/29/20 7:[address] Updated notes faxed to [facility]. DCP- Discharge Planning Updated by [email or web address]: Chloe Marley on 04/25/20 2:[address] I received a call from Irma with [facility] rehab. Irma states that she has enough available days that they can accept her if she is able to participate in therapy more. I spoke with the patient and encouraged her to work as much as she can with therapy. CM will continue to send therapy notes daily to [facility]. DCP- Discharge Planning Updated by [email or web address]: Chloe Marley on 04/25/20 10:[address] Clinical faxed to [facility] for review. CM will continue to follow and assist with discharge needs. DCP- Discharge Planning Updated by [email or web address]: Chloe Wardell on 04/25/20 10:[address] Patient Name: RUCHI WOODS Admission Status: ER Accout number: [id number] Admission Date: 04-22-2020 : 1955 Admission Diagnosis:URINARY TRACT INFECTION, SITE NOT SPECIFIED Attending: THIAGO MILLIGAN Current LOS: 3 Anticipated DC Date: Planned Disposition: Primary Insurance: MEDICAID [place] Discharge Planning Comments: CM met with patient to complete initial dc planning assessment. CM educated patient on the CM role and verbal consent given by patient to complete assessment. Patient lives at home alone, states her nephew lives on the same property and helps her with needs. CM discussed availability of home health, rehab services, and medical equipment. I informed her that her insurance would not cover SNF. The only inpatient rehab that could possibly consider her is [facility] on [address]. She states she has been there before and would like a referral. She refuses usp placement. States if [facility] cannot except, she would go home with resumption of [facility]. She does not have oxygen at home, would need a room air sat prior to discharge to assess for home oxygen needs. CM will continue to follow and will assist as needed with dc plans/needs. Superintendent Mechanical: Chloe Marley DCPIA - Discharge Planning Initial Assessment Updated by [email or web address]: Chloe Ayaka on 04/25/20 10:47 am * Is the patient Alert and Oriented? Yes * How many steps to enter\exit or inside your home? RAMP/0 * PCP Dr. Beaulieu * Pharmacy [facility] in [place] * Preadmission Environment Home Alone * ADLs Partial Dependent * Partial ADLs (Assistance needed) Ambulation Bathing Dressing Medication Management Transfers * Equipment Other Walker * Other Equipment Motorized wheelchair * List name and contact numbers for known caregivers / representatives who currently or will assist patient after discharge: Jose sebastian - [phone] * Verbal permission to speak to the caregivers and representatives has been obtained from the patient. Yes * Community resources currently utilized Home Health * Please name any agencies selected above. [facility] * Additional services required to return to the preadmission environment? Yes * Can the patient safely return to the preadmission environment? No * Has this patient been hospitalized within the prior 30 days at any hospital? Yes Coverage Notice Reviewer: [email or web address] - Chloe Marley Notice Issued Date-Time: 04/25/2020 11:52 Notice Type: Patient Choice Letter Notice Delivered To: Patient Relationship to Patient: Self Leather Drier Name: Delivery Method: HAND - Hand Delivered Edel Days: Prior Verbal Notification: Recipient Understood Notice: Yes Recipient Signature: Yes Med Rec Note Co-signed by Attending: Coverage Notice Comment: TENISHA FOR [facility], [facility] DP export: 04/29/20 7:31 a Patient Name: RUCHI WOODS Page 34111 at 1353 All edits/amendments must be made on the electronic document DICTATION DATE: 05/01/20 1352 INTERNET MARKETING INTERN: FOREST 05/01/20 1352 RPT#: [id number] DC DATE: STATUS: ADM IN [facility] [address] [place] [address] END OF REPORT
[2020-05-01 15:08] VITALS: Ht 160 cm; Wt 105.1 kg
--- NOTE | 2020-05-01 15:36 | MORECARE ---
CASE MANAGEMENT DISCHARGE SUMMARY PATIENT: RUCHI WOODS UNIT: [id number] ADM DATE: 04/22/20 AGE: 64 : 57 SEX: F ROOM/BED: D.2100 AUTHOR: TYESHA,DOC PHYSICIAN: REFERRING PHYSICIAN: THIAGO MILLIGAN MD DATE OF SERVICE: 05/01/20 Discharge Plan Patient Name: RUCHI WOODS Facility: [facility]:[place] : 1955 Planned Disposition: Anticipated Discharge Date: Discharge Date: Expected LOS: Initial Reviewer: [email or web address] Initial Review Date: 04/25/2020 Generated: 05/01/20 4:35 pm Comments DCP- Discharge Planning Updated by [email or web address]: Chloe Marley on 05/01/20 2:[address] CM called Norma and left a message on her answering machine that I needed an OP dialysis chair set up for patient. CM will continue to follow and assist with discharge planning/needs. DCP- Discharge Planning Updated by [email or web address]: Chloe Marley on 05/01/20 12:[address] After 3rd call to [facility], I reached Nasra. Nasra states she is now down to 5 days of rehab and they would not be able to accept patient. I spoke with the patient about salvage determiner care. She does not want salvage determiner care, she would [facility]. She is telling me she has changed her mind about dialysis and now would like to be started on dialysis. I notified Soumya and she is calling nephrology. I notified Jostin Beckwith APN. CM will continue to follow and assist with discharge planning/needs. DCP- Discharge Planning Updated by [email or web address]: Chloe Marley on 04/29/20 7:[address] Updated notes faxed to [facility]. DCP- Discharge Planning Updated by [email or web address]: Chloe Marley on 04/25/20 2:[address] I received a call from Irma with [facility] rehab. Irma states that she has enough available days that they can accept her if she is able to participate in therapy more. I spoke with the patient and encouraged her to work as much as she can with therapy. CM will continue to send therapy notes daily to [facility]. DCP- Discharge Planning Updated by [id number]: Chloe Ayaka on 04/25/20 10:[address] Clinical faxed to [facility] for review. CM will continue to follow and assist with discharge needs. DCP- Discharge Planning Updated by [id number]: Chloe Warddestinee on 04/25/20 10:[address] Patient Name: RUCHI WOODS Admission Status: ER Accout number: [id number] Admission Date: 04-22-2020 : 1955 Admission Diagnosis:URINARY TRACT INFECTION, SITE NOT SPECIFIED Attending: THIAGO MILLIGAN Current LOS: 3 Anticipated DC Date: Planned Disposition: Primary Insurance: MEDICAID [place] Discharge Planning Comments: CM met with patient to complete initial dc planning assessment. CM educated patient on the CM role and verbal consent given by patient to complete assessment. Patient lives at home alone, states her nephew lives on the same property and helps her with needs. CM discussed availability of home health, rehab services, and medical equipment. I informed her that her insurance would not cover SNF. The only inpatient rehab that could possibly consider her is [facility] on [address]. She states she has been there before and would like a referral. She refuses skilled nursing placement. States if [facility] cannot except, she would go home with resumption of [facility] health. She does not have oxygen at home, would need a room air sat prior to discharge to assess for home oxygen needs. CM will continue to follow and will assist as needed with dc plans/needs. Car Deliverer: Chloe Marley DCPIA - Discharge Planning Initial Assessment Updated by [email or web address]: Chloe Ayaka on 04/25/20 10:47 am * Is the patient Alert and Oriented? Yes * How many steps to enter\exit or inside your home? RAMP/0 * PCP Dr. Beaulieu * Pharmacy [facility] in [place] * Preadmission Environment Home Alone * ADLs Partial Dependent * Partial ADLs (Assistance needed) Ambulation Bathing Dressing Medication Management Transfers * Equipment Other Walker * Other Equipment Motorized wheelchair * List name and contact numbers for known caregivers / representatives who currently or will assist patient after discharge: Jose sebastian - [phone] * Verbal permission to speak to the caregivers and representatives has been obtained from the patient. Yes * Community resources currently utilized Home Health * Please name any agencies selected above. [facility] home health * Additional services required to return to the preadmission environment? Yes * Can the patient safely return to the preadmission environment? No * Has this patient been hospitalized within the prior 30 days at any hospital? Yes Coverage Notice Reviewer: [email or web address] Darrel Marley Notice Issued Date-Time: 04/25/2020 11:52 Notice Type: Patient Choice Letter Notice Delivered To: Patient Relationship to Patient: Self Boatwright Name: Delivery Method: HAND - Hand Delivered Edel Days: Prior Verbal Notification: Recipient Understood Notice: Yes Recipient Signature: Yes Med Rec Note Co-signed by Attending: Coverage Notice Comment: [facility] DP export: 05/01/20 12:53 p Patient Name: RUCHI WOODS Page [phone] at 1536 All edits/amendments must be made on the electronic document DICTATION DATE: 05/01/20 1535 BODY MAN: FOREST 05/01/20 1535 RPT#: [id number] DC DATE: STATUS: ADM IN [facility] [address] [place] [address] END OF REPORT
--- NOTE | 2020-05-01 15:47 | NUR ---
OT NOTE: PT COMPLETED BED MOB TASKS WITH MIN A. PT COMPLETED EOB SITTING WITH SBA. PT COMPLETED UE AROM AXS. [phone] THANK YOU,ARIANNE MARTINEZ
[2020-05-01 16:32] VITALS: BP 141/69
--- NOTE | 2020-05-01 19:14 | NUR ---
OT NOTE: PT SITTING UP IN BED. DEMONSTRATED LE EXS THAT SHE HAS BEEN DOING IN BED. PTS BED MOB HAS IMPROVED, AND WITH EXT TIME PROVIDED, PT IS ABLE TO GET FROM SUPINE TO SIT WITH VERY MINIMAL ASSIST. PT REMAINS WEAK AND CONTINUE TO RECOMMEND IP REHAB. SHE IS MOTIVATED AND WANTS TO IMPROVE. REPORTED THAT SHE FELT DEPRESSED AND FRUSTRATED BECAUSE SHE RECEIVED SOME BAD NEWS TODAY.. STATES THAT SHE WAS GETTING CONFLICTING REPORTS ON HER MED STATUS. EXPLAINED TO PT TO CONTINUE TO WORK ON GETTING STRONGER SO THAT SHE MAY BE ABLE TO RETURN HOME. PT ABLE TO PERFORM UE ADLS.. REQUIRES ASSIST FOR LE ADLS. CHRISTIANO LILLY, OTR/L [phone]
[2020-05-01 20:00] VITALS: BP 125/73
--- NOTE | 2020-05-02 03:09 | NUR ---
PT A/O X4. RR EVEN AND UNLABORED. VITALS STABLE. PT COMPLAINS OF N/V. EMESIS GREEN/BLACK 300ML. PRN ZOFRAN GIVEN. PT STATES THAT IT DOESNT HELP TO MUCH WHICH IS OBVIOUS TO THIS NURSE THAT HAS WITNESSED PT UPON MULTIPAL OCCATIONS VOMITING. PT STATES SHE IS SCARED FOR PROCEDURE TO PUT IN DIALYSIS ACSESS. SHE STATES SHE IS SCARED FOR THE WHOLE PROCESS. THIS NURSE COMFORTED PT AND ANSWERED QUESTIONS THAT SHE HAD. PT EXPRESSES THAT SHE WOULD LIKE TO GET UP IN CHAIR AND TO WORK ON WALKING WITH WALKER. PT MOTIVATED TO GET OUT OF BED. PT DENIES ANY PAIN OR FURTHER NEEDS AT THIS TIME. BED LOW CALL LIGHT WITHIN REACH WILL CONTINUE TO MONITOR.
[2020-05-02 06:32] LABS: BASOPHILS 0.1 % (0-2); EOSINOPHILS 0.7 % (0-7); HEMATOCRIT 24.6 % (36.0-48.0); IMMATURE GRANULOCYTES 0.1 % (0-5); LYMPHOCYTES 15.1 % (15-50); MCH 27.8 pg (26.0-34.0); MCHC 32.5 g/dL (31.0-37.0); MCV 85.4 fL (80.0-100.0); MEAN PLATELET VOLUME 10.2 fL (7.4-10.4); MONOCYTES 6.6 % (2-11); NEUTROPHILS 77.4 % (40-80); PLATELET COUNT 92 10x3/uL (130-400); RBC 2.88 10x6/uL (4.00-5.40); RDW 15.4 % (11.5-14.5); WBC 9.6 10x3/uL (4.8-10.8)
[2020-05-02 07:08] LABS: ANION GAP 17.6 mmol/L (8-16); CALCIUM 9.4 mg/dL (8.5-10.1); CARBON DIOXIDE 22.2 mmol/L (21.0-32.0)
[2020-05-02 07:11] LABS: POTASSIUM - SERUM 2.8 mmol/L (3.5-5.1)
[2020-05-02 08:21] LABS: PLATELET ESTIMATE DECREASED
[2020-05-02 08:22] VITALS: BP 154/81
[2020-05-02 10:12] LABS: HEPATITIS C ANTIBODY <0.1 S/CO RAT (0.0-0.9)
--- NOTE | 2020-05-02 11:25 | NUR ---
Nutrition Follow-up: NPO for HD catheter placement today. Noted pt with N/V in early AM. No new wt; last wt: 185# (04/23) Last BM: 05/02 Labs noted: K+ 2.8 Meds noted: Bumex, Protonix, Albumin, Florajen, NS @ KVO, electrolyte protocol -Rec resume diet when medically feasible. -Need new wt; noted daily wts ordered. -RD following.
--- NOTE | 2020-05-02 11:33 | NUR ---
OFF FLOOR AT THIS TIME FOR PROCEDURE TO PLACE DAILYSIS CATH. STABLE UPON DEPARTURE.
--- NOTE | 2020-05-02 12:02 | NUR ---
FAMILY UPDATED AT THIS TIME.
--- NOTE | 2020-05-02 13:32 | NUR ---
I have reviewed this patient and I concur with the Shift Assessment completed by the Licensed Practical Nurse today this shift.
[2020-05-02 15:24] VITALS: BP 155/81
[2020-05-02 22:26] VITALS: BP 144/82
[2020-05-03 02:47] VITALS: BP 157/79
--- NOTE | 2020-05-03 03:28 | NUR ---
PTS IV TO RIGHT AC LEAKING. MULTIPLE ATTEMPTS BY 2 NURSES TO START ANOTHER PERIPHERAL IV BUT WAS UNSUCCESSFUL. ORDER PLACED FOR VASCULAR ACCESS NURSE. IV TO RIGHT AC REMOVED. PT TOLERATED WELL.
[2020-05-03 06:15] VITALS: BP 143/84
[2020-05-03 09:27] VITALS: BP 142/98
--- NOTE | 2020-05-03 11:36 | MORECARE ---
CASE MANAGEMENT DISCHARGE SUMMARY PATIENT: RUCHI WOODS UNIT: [id number] ADM DATE: 04/22/20 AGE: 64 : 57 SEX: F ROOM/BED: D.2108 AUTHOR: TYESHA,DOC PHYSICIAN: REFERRING PHYSICIAN: THIAGO MILLIGAN MD DATE OF SERVICE: 05/03/20 Discharge Plan Patient Name: RUCHI WOODS Facility: [facility]:[place] : 1955 Planned Disposition: Anticipated Discharge Date: Discharge Date: Expected LOS: Initial Reviewer: [email or web address] Initial Review Date: 04/25/2020 Generated: 05/03/20 12:35 pm Comments DCP- Discharge Planning Updated by [id number]: Chloe Marley on 05/01/20 2:[address] CM called Norma and left a message on her answering machine that I needed an OP dialysis chair set up for patient. CM will continue to follow and assist with discharge planning/needs. DCP- Discharge Planning Updated by [email or web address]: Chloe Marley on 05/01/20 12:[address] After 3rd call to [facility], I reached Nasra. Nasra states she is now down to 5 days of rehab and they would not be able to accept patient. I spoke with the patient about usp care. She does not want terminal operator care, she would like to go home with [facility]. She is telling me she has changed her mind about dialysis and now would like to be started on dialysis. I notified Soumya and she is calling nephrology. I notified Jostin Beckwith APN. CM will continue to follow and assist with discharge planning/needs. DCP- Discharge Planning Updated by [email or web address]: Chloe Marley on 04/29/20 7:[address] Updated notes faxed to [facility]. DCP- Discharge Planning Updated by [email or web address]: Chloe Marley on 04/25/20 2:[address] I received a call from Irma with [facility] rehab. Irma states that she has enough available days that they can accept her if she is able to participate in therapy more. I spoke with the patient and encouraged her to work as much as she can with therapy. CM will continue to send therapy notes daily to [facility]. DCP- Discharge Planning Updated by [email or web address]: Chloe Ayaka on 04/25/20 10:[address] Clinical faxed to [facility] for review. CM will continue to follow and assist with discharge needs. DCP- Discharge Planning Updated by [id number]: Chloe Warddestinee on 04/25/20 10:[address] Patient Name: RUCHI WOODS Admission Status: ER Accout number: [id number] Admission Date: 04-22-2020 : 1955 Admission Diagnosis:URINARY TRACT INFECTION, SITE NOT SPECIFIED Attending: THIAGO MILLIGAN Current LOS: 3 Anticipated DC Date: Planned Disposition: Primary Insurance: MEDICAID [place] Discharge Planning Comments: CM met with patient to complete initial dc planning assessment. CM educated patient on the CM role and verbal consent given by patient to complete assessment. Patient lives at home alone, states her nephew lives on the same property and helps her with needs. CM discussed availability of home health, rehab services, and medical equipment. I informed her that her insurance would not cover SNF. The only inpatient rehab that could possibly consider her is [facility] on [address]. She states she has been there before and would like a referral. She refuses intermediate placement. States if [facility] cannot except, she would go home with resumption of [facility] health. She does not have oxygen at home, would need a room air sat prior to discharge to assess for home oxygen needs. CM will continue to follow and will assist as needed with dc plans/needs. Cyber Defense Forensics Analyst: Chloe Marley DCPIA - Discharge Planning Initial Assessment Updated by [email or web address]: Chloe Ayaka on 04/25/20 10:47 am * Is the patient Alert and Oriented? Yes * How many steps to enter\exit or inside your home? RAMP/0 * PCP Dr. Beaulieu * Pharmacy [facility] in [place] * Preadmission Environment Home Alone * ADLs Partial Dependent * Partial ADLs (Assistance needed) Ambulation Bathing Dressing Medication Management Transfers * Equipment Other Walker * Other Equipment Motorized wheelchair * List name and contact numbers for known caregivers / representatives who currently or will assist patient after discharge: Jose sebastian - [phone] * Verbal permission to speak to the caregivers and representatives has been obtained from the patient. Yes * Community resources currently utilized Home Health * Please name any agencies selected above. [facility] home health * Additional services required to return to the preadmission environment? Yes * Can the patient safely return to the preadmission environment? No * Has this patient been hospitalized within the prior 30 days at any hospital? Yes External Providers External Provider: OTHER-OTHER Next Contact Date: Service Request Date: Service Type: Resolution: Reviewer: Comments: Coverage Notice Reviewer: [email or web address] Darrel Marley Notice Issued Date-Time: 04/25/2020 11:52 Notice Type: Patient Choice Letter Notice Delivered To: Patient Relationship to Patient: Self Hairspring Ii Inspector Name: Delivery Method: HAND - Hand Delivered Edel Days: Prior Verbal Notification: Recipient Understood Notice: Yes Recipient Signature: Yes Med Rec Note Co-signed by Attending: Coverage Notice Comment: TENISHA FOR [facility] Last DP export: 05/01/20 2:36 p Patient Name: RUCHI WOODS Page 49950 at 1136 All edits/amendments must be made on the electronic document DICTATION DATE: 05/03/20 1135 MILK COLLECTOR: FOREST 05/03/20 1135 RPT#: [id number] DC DATE: STATUS: ADM IN [facility] [address] [place] [address] END OF REPORT
[2020-05-03 12:18] LABS: BASOPHILS 0.2 % (0-2); EOSINOPHILS 2.2 % (0-7); HEMATOCRIT 23.5 % (36.0-48.0); HEMOGLOBIN 7.7 g/dL (12-16); IMMATURE GRANULOCYTES 0.4 % (0-5); LYMPHOCYTES 20.4 % (15-50); MCH 27.8 pg (26.0-34.0); MCHC 32.8 g/dL (31.0-37.0); MCV 84.8 fL (80.0-100.0); MEAN PLATELET VOLUME 10.4 fL (7.4-10.4); MONOCYTES 3.8 % (2-11); RBC 2.77 10x6/uL (4.00-5.40); RDW 15.3 % (11.5-14.5)
[2020-05-03 12:24] LABS: ANION GAP 10.3 mmol/L (8-16); CALCIUM 8.5 mg/dL (8.5-10.1); CARBON DIOXIDE 26.6 mmol/L (21.0-32.0)
[2020-05-03 12:30] LABS: CREATININE - SERUM 5.1 mg/dL (0.6-1.3)
[2020-05-03 12:31] LABS: POTASSIUM - SERUM 2.9 mmol/L (3.5-5.1)
[2020-05-03 12:32] LABS: WBC 5.5 10x3/uL (4.8-10.8)
[2020-05-03 12:33] LABS: PLATELET COUNT 56 10x3/uL (130-400)
--- NOTE | 2020-05-03 13:47 | NUR ---
Nutrition Consult/Follow-up: Consulted for renal diet meal plans. Pt lethargic at time of visit. First HD today. Poor PO intake. Diet: Renal Wt: 185# (04/23) Last BM: 05/02 per chart Labs noted: K+ 2.9 Meds noted: Bumex, Protonix, Florajen, electrolyte protocol -Pt not appropriate for instruction at this time 2/2 lethargy. Provided written information and left at BS. Will attempt to discuss with pt prior to d/c. Pt will also receive instruction from renal RD at dialysis clinic. -Encourage PO intake and honor food preferences within diet restrictions. -Offer Nepro with meals. -Monitor wt; noted daily wts ordered. -RD following.
[2020-05-03 17:18] VITALS: BP 154/100
--- NOTE | 2020-05-03 19:50 | OP ---
PATIENT NAME: RUCHI WOODS MEDICAL RECORD: [id number] :57 LOCATION:D. D.2107 ADMISSION DATE:04/22/20 SURGEON: JARRET MARES MD DATE OF OPERATION: 05/02/2020 PREOPERATIVE DIAGNOSIS: End-stage renal disease without chronic access for hemodialysis. POSTOPERATIVE DIAGNOSIS: End-stage renal disease without chronic access for hemodialysis. PROCEDURES: 1. Insertion of right internal jugular HemoSplit catheter under fluoroscopic guidance, that is a tunneled cuffed dual-lumen hemodialysis catheter. 2. Immediate surgeon interpretation of fluoroscopic images. SURGEON: Jarrte Mares MD REAL ESTATE JOB TITLES: None. ANESTHESIA: Local with IV sedation. COMPLICATIONS: None. The risks, possible complications and alternatives to the procedure were explained to the patient. She elects to proceed. OPERATIVE COURSE: The patient was conveyed to the operating room electively on 05/02/2020. IV sedation was induced by the anesthesia staff. The right neck and right upper chest was sterilely prepped and draped. A local anesthetic was used to infiltrate the skin and subcutaneous tissues over the right clavicle, just inferior to the right clavicle as well as on to the right side of the neck. The patient was positioned in the Trendelenburg position. The right neck was interrogated with the hand-held ultrasound. A compressible large internal jugular vein was identified. It was percutaneously accessed in an antegrade fashion on the first stick. Guidewire was passed easily. A small skin incision was accomplished around the wire. Under fluoroscopy, the guidewire could be seen coursing down the mediastinum. A counterincision was accomplished in the right anterior superior infraclavicular chest. I then tunneled the 19-cm HemoSplit catheter from the chest incision to the neck incision. Over the wire, I dilated to a larger size. This was visualized under fluoroscopy. The dilator sheath was then advanced. The dilator and wire were removed. Through the peel-away sheath, the HemoSplit catheter tips were advanced. The Peel-Away sheath was then removed. I then pulled back on the HemoSplit catheter to seat the cuff into the subcutaneous tissues. Under fluoroscopy, there was no apparent kinking or twisting of the HemoSplit catheter. No radiographic evidence of complication. The neck incision was closed with interrupted intracuticular 3-0 Vicryls. The flange on the HemoSplit catheter was sutured to the underlying skin with 2-0 nylons. Both lumens of the HemoSplit catheter were then topped off with the appropriate amount of concentrated heparin. Sterile dressings were applied. The patient was then conveyed back to the recovery room. OPERATIVE REPORT [id number] PEGGYGAILN TRANSINT:[id number] Voice Confirmation ID: [id number] DOCUMENT ID: [id number] JARRET MARES MD at 1950 CC: [id number] DICTATION DATE: 05/02/201806 ARCHITECT INTERN: 05/02/20 213 ADM IN [facility] [address] [id number]
[2020-05-03 20:00] VITALS: BP 157/85
--- NOTE | 2020-05-03 20:05 | NUR ---
RECIEVED UP IN BED WITH HOB ELEVATED. ALERT AND ORIENTED X4. REMAINS BEDFAST. TELEMETRY IN PLACE. RT CHEST HEMO SPLIT AND LT HAND SL. F/C INTACT WITH CLEAR YELLOW URINE TO BEDSIDE DRAINAGE. BUTTOCK EXCORIATED, SMALL TOE ON RT FOOT NECROTIC. DENIES ANY NEEDS AT THIS TIME.
[2020-05-04 04:00] VITALS: BP 162/89
[2020-05-04 08:23] LABS: BASOPHILS 0.4 % (0-2); EOSINOPHILS 2.9 % (0-7); HEMATOCRIT 21.9 % (36.0-48.0); IMMATURE GRANULOCYTES 0.4 % (0-5); LYMPHOCYTES 26.4 % (15-50); MCH 27.6 pg (26.0-34.0); MCHC 32.4 g/dL (31.0-37.0); MCV 85.2 fL (80.0-100.0); MONOCYTES 8.5 % (2-11); NEUTROPHILS 61.4 % (40-80); RBC 2.57 10x6/uL (4.00-5.40); RDW 15.6 % (11.5-14.5); WBC 5.2 10x3/uL (4.8-10.8)
[2020-05-04 08:24] VITALS: BP 179/104
[2020-05-04 08:27] LABS: HEMOGLOBIN 7.1 g/dL (12-16); PLATELET COUNT 71 10x3/uL (130-400)
[2020-05-04 08:29] LABS: CALCIUM 8.9 mg/dL (8.5-10.1); CARBON DIOXIDE 23.3 mmol/L (21.0-32.0); CREATININE - SERUM 5.6 mg/dL (0.6-1.3); POTASSIUM - SERUM 3.3 mmol/L (3.5-5.1)
[2020-05-04 08:47] LABS: PLATELET ESTIMATE DECREASED
[2020-05-04 12:10] VITALS: BP 192/103
[2020-05-04 15:31] VITALS: BP 163/89
[2020-05-04 16:24] VITALS: BP 163/89
--- NOTE | 2020-05-04 20:10 | NUR ---
RECIEVED UP IN BED WITH EYES OPEN AND TV ON. AlERT AND ORIENTED X4. REMAINS BEDFAST. F/C IN PLACE WITH CLEAR YELLOW URINE DRAINING TO BEDSIDE DRAINAGE SYSTEM. IV TO LT HAND SL. TELEMETRY IN PLACE. DENIES ANY NEEDS AT THIS TIME.
[2020-05-04 21:14] VITALS: BP 178/98
[2020-05-05 00:16] VITALS: BP 186/99
--- NOTE | 2020-05-05 01:28 | NUR ---
LAYING IN BED WITH EYES OPENA ND TV ON. DOES NOT SLEEP AT NIGHT. AWAKE ALL NIGHT FRI NIGHT ALSO. DENIES ANY NEEDS. INCONT OF BOWEL X1 THIS SHIFT. LINEN CHANGED AND REPOSITIONED FOR COMFORT. CALMOSEPTIN APPLIED TO BUTTOCKS. DENIES ANY NEEDS AT THIS TIME.
[2020-05-05 04:00] VITALS: BP 168/88
[2020-05-05 06:40] LABS: BASOPHILS 0.2 % (0-2); EOSINOPHILS 2.6 % (0-7); IMMATURE GRANULOCYTES 0.3 % (0-5); LYMPHOCYTES 21.5 % (15-50); MCH 28.1 pg (26.0-34.0); MCHC 33.3 g/dL (31.0-37.0); MCV 84.4 fL (80.0-100.0); MEAN PLATELET VOLUME 10.3 fL (7.4-10.4); MONOCYTES 12.4 % (2-11); PLATELET COUNT 60 10x3/uL (130-400); RBC 3.66 10x6/uL (4.00-5.40); RDW 15.2 % (11.5-14.5); WBC 5.9 10x3/uL (4.8-10.8)
[2020-05-05 06:41] LABS: HEMATOCRIT 30.9 % (36.0-48.0); HEMOGLOBIN 10.3 g/dL (12-16)
[2020-05-05 07:02] LABS: PLATELET ESTIMATE DECREASED
[2020-05-05 07:28] LABS: % SATURATION 148 % (15-55); IRON 52 ug/dl (35-150); TOTAL IRON BIND CAPACITY 35 ug/dl (260-445)
[2020-05-05 07:44] LABS: ANION GAP 15.4 mmol/L (8-16); CARBON DIOXIDE 23.7 mmol/L (21.0-32.0); POTASSIUM - SERUM 3.1 mmol/L (3.5-5.1)
[2020-05-05 08:13] VITALS: BP 197/111
[2020-05-05 11:55] VITALS: BP 200/105
[2020-05-05 16:21] VITALS: BP 206/106
[2020-05-05 18:56] VITALS: BP 206/106
--- NOTE | 2020-05-05 19:46 | NUR ---
RECIEVED UP IN BED WITH EYES OPEN A ND TV ON. ALERT AND ORIENTED X4. BEDFAST ON THIS SHIFT. IV TO LT HAND SL. HEMOSPLIT TO LT CHEST. DENIES ANY NEEDS AT THIS TIME.
[2020-05-06 03:54] VITALS: BP 199/97
[2020-05-06 05:48] LABS: BASOPHILS 0.2 % (0-2); EOSINOPHILS 0.9 % (0-7); HEMATOCRIT 32.1 % (36.0-48.0); HEMOGLOBIN 10.4 g/dL (12-16); IMMATURE GRANULOCYTES 0.7 % (0-5); MCH 27.3 pg (26.0-34.0); MCHC 32.4 g/dL (31.0-37.0); MCV 84.3 fL (80.0-100.0); MEAN PLATELET VOLUME 10.6 fL (7.4-10.4); MONOCYTES 9.8 % (2-11); NEUTROPHILS 69.4 % (40-80); RBC 3.81 10x6/uL (4.00-5.40); RDW 15.6 % (11.5-14.5); WBC 5.8 10x3/uL (4.8-10.8)
[2020-05-06 06:05] LABS: CARBON DIOXIDE 25.9 mmol/L (21.0-32.0); CREATININE - SERUM 4.2 mg/dL (0.6-1.3); MAGNESIUM - SERUM 1.5 mg/dL (1.8-2.4); PLATELET COUNT 82 10x3/uL (130-400)
[2020-05-06 07:12] LABS: POTASSIUM - SERUM 2.9 mmol/L (3.5-5.1)
[2020-05-06 07:17] VITALS: BP 161/79
[2020-05-06 07:44] VITALS: BP 218/113
--- NOTE | 2020-05-06 09:00 | NUR ---
UP OUT OF BED FOR BED CHANGE. SOILED LINENS WITH LOOSE STOOL. BP MEDICATIONS ADMINISTERED AT 0822. LEGS BUCKLE WHEN ASSISTING BACK TO BED. LOWER TO FLOOR X 2 PERSON ASSIST WITH WALKER TO WAIT FOR ASSISTANCE. BEGINS HAVING A SEIZURE. PLACE ON SIDE AND CALL RAPID RESPONSE. SEE RAPID SHEET ON CHART.
[2020-05-06 09:32] LABS: INR 1.28 (0.85-1.17); PROTIME 15.9 SECONDS (11.6-15.0)
[2020-05-06 09:33] LABS: PLATELET ESTIMATE DECREASED
[2020-05-06 09:58] LABS: POTASSIUM - SERUM 3.4 mmol/L (3.5-5.1)
--- NOTE | 2020-05-06 10:00 | NUR ---
NOTIFY WILBER WRIGHT OF ELEVATED TROPONIN 0.318.
[2020-05-06 10:02] LABS: TROPONIN-I 0.318 ng/mL (0.000-0.060)
[2020-05-06 11:40] VITALS: BP 174/106
--- NOTE | 2020-05-06 13:55 | NUR ---
OT NOTE: HOLD THERAPY SERVICES DUE TO RAPID RESPONSE CALLED THIS AM. CHRISTIANO LILLY, OTR/L
[2020-05-06 17:10] VITALS: BP 156/106
--- NOTE | 2020-05-06 17:34 | MORECARE ---
CASE MANAGEMENT DISCHARGE SUMMARY PATIENT: RUCHI WOODS UNIT: [id number] ADM DATE: 04/22/20 AGE: 64 : 57 SEX: F ROOM/BED: D.2103 AUTHOR: TYESHA,DOC PHYSICIAN: REFERRING PHYSICIAN: THIAGO MILLIGAN MD DATE OF SERVICE: 05/06/20 Discharge Plan Patient Name: RUCHI WOODS Facility: [facility]:[place] : 1955 Planned Disposition: Anticipated Discharge Date: Discharge Date: Expected LOS: Initial Reviewer: [email or web address] Initial Review Date: 04/25/2020 Generated: 05/06/20 6:34 pm Comments DCP- Discharge Planning Updated by [email or web address]: Chloe Marley on 05/06/20 4:[address] CM received a call from Norma Williamson, states she is having difficulty with her insurance. I called Jose nephew, and gave her Norma's number per her request. DCP- Discharge Planning Updated by [email or web address]: Chloe Marley on 05/01/20 2:[address] CM called Norma and left a message on her answering machine that I needed an OP dialysis chair set up for patient. CM will continue to follow and assist with discharge planning/needs. DCP- Discharge Planning Updated by [email or web address]: Chloe Marley on 05/01/20 12:[address] After 3rd call to [employer], I reached Nasra. [facility] states she is now down to 5 days of rehab and they would not be able to accept patient. I spoke with the patient about grocery sacker care. She does not want grocery sacker care, she would like to go home with [facility]. She is telling me she has changed her mind about dialysis and now would like to be started on dialysis. I notified Soumya and she is calling nephrology. I notified Jostin Beckwith APN. CM will continue to follow and assist with discharge planning/needs. DCP- Discharge Planning Updated by [email or web address]: Chloe Marley on 04/29/20 7:[address] Updated notes faxed to [employer]. DCP- Discharge Planning Updated by [id number]: Chloe Marley on 04/25/20 2:[address] I received a call from Irma with [facility] rehab. Irma states that she has enough available days that they can accept her if she is able to participate in therapy more. I spoke with the patient and encouraged her to work as much as she can with therapy. CM will continue to send therapy notes daily to [facility]. DCP- Discharge Planning Updated by [id number]: Chloe Marley on 04/25/20 10:[address] Clinical faxed to [facility] for review. CM will continue to follow and assist with discharge needs. DCP- Discharge Planning Updated by [id number]: Chloe Ayaka on 04/25/20 10:[address] Patient Name: RUCHI WOODS Admission Status: ER Accout number: [id number] Admission Date: 04-22-2020 : 1955 Admission Diagnosis:URINARY TRACT INFECTION, SITE NOT SPECIFIED Attending: THIAGO MILLIGAN Current LOS: 3 Anticipated DC Date: Planned Disposition: Primary Insurance: MEDICAID [place] Discharge Planning Comments: CM met with patient to complete initial dc planning assessment. CM educated patient on the CM role and verbal consent given by patient to complete assessment. Patient lives at home alone, states her nephew lives on the same property and helps her with needs. CM discussed availability of home health, rehab services, and medical equipment. I informed her that her insurance would not cover SNF. The only inpatient rehab that could possibly consider her is [facility] on [facility]. She states she has been there before and would like a referral. She refuses long term placement. States if [facility] cannot except, she would go home with resumption of [facility] health. She does not have oxygen at home, would need a room air sat prior to discharge to assess for home oxygen needs. CM will continue to follow and will assist as needed with dc plans/needs. Bailiff: Chloe Marley DCPIA - Discharge Planning Initial Assessment Updated by [email or web address]: Chloe Marley on 04/25/20 10:47 am * Is the patient Alert and Oriented? Yes * How many steps to enter\exit or inside your home? RAMP/0 * PCP Dr. Beaulieu * Pharmacy [facility] in [place] * Preadmission Environment Home Alone * ADLs Partial Dependent * Partial ADLs (Assistance needed) Ambulation Bathing Dressing Medication Management Transfers * Equipment Other Walker * Other Equipment Motorized wheelchair * List name and contact numbers for known caregivers / representatives who currently or will assist patient after discharge: Jose sebastian [phone] * Verbal permission to speak to the caregivers and representatives has been obtained from the patient. Yes * Community resources currently utilized Home Health * Please name any agencies selected above. [facility] health * Additional services required to return to the preadmission environment? Yes * Can the patient safely return to the preadmission environment? No * Has this patient been hospitalized within the prior 30 days at any hospital? Yes Coverage Notice Reviewer: [email or web address] Darrel Marley Notice Issued Date-Time: 04/25/2020 11:52 Notice Type: Patient Choice Letter Notice Delivered To: Patient Relationship to Patient: Self Freelance Director Name: Delivery Method: HAND - Hand Delivered Edel Days: Prior Verbal Notification: Recipient Understood Notice: Yes Recipient Signature: Yes Med Rec Note Co-signed by Attending: Coverage Notice Comment: TENISHA FOR [facility] DP export: 05/03/20 10:36 a Patient Name: RUCHI WOODS Page 20503 at 1734 All edits/amendments must be made on the electronic document DICTATION DATE: 05/06/201733 DIABETES NURSE: FOREST 05/06/201733 RPT#: [id number] DC DATE: STATUS: ADM IN [facility] [address] [place] [address] END OF REPORT
--- NOTE | 2020-05-06 18:39 | NUR ---
AFTER SEVERAL ATTEMPTS MADE BY PT'S PRIMARY NURSE AND HAZARDOUS SUBSTANCES SCIENTIST UNABLE TO GET LAB DRAW FOR RAPID RESPONSE. THIS NURSE CALLED AND SPOKE WITHAMINTA MERINO AND SHE STATES OK TO USE HEMOSPLIT FOR ONE TIME FOR RAPID RESPONSE AND TO HEPARIN LOC WHEN FINISHED. I VERBALIZED UNDERSTANDING. THIS NURSE [facility]UST[facility] LAB VIA HEMOSPLIT AND HEP LOC'D AFTER 1.9ML.
[2020-05-06 18:43] LABS: BASOPHILS 0.1 % (0-2); EOSINOPHILS 0 % (0-7); HEMATOCRIT 30.8 % (36.0-48.0); IMMATURE GRANULOCYTES 0.5 % (0-5); LYMPHOCYTES 10.7 % (15-50); MCH 27.9 pg (26.0-34.0); MCHC 32.5 g/dL (31.0-37.0); MCV 85.8 fL (80.0-100.0); MEAN PLATELET VOLUME 10.4 fL (7.4-10.4); MONOCYTES 5.5 % (2-11); NEUTROPHILS 83.2 % (40-80); PLATELET COUNT 97 10x3/uL (130-400); RBC 3.59 10x6/uL (4.00-5.40); RDW 15.5 % (11.5-14.5)
[2020-05-06 18:56] LABS: WBC 8.2 10x3/uL (4.8-10.8)
[2020-05-06 19:12] LABS: CALC OSMOLALITY 290 mosm/kg (275-300); CALCIUM 9.2 mg/dL (8.5-10.1); CARBON DIOXIDE 24.7 mmol/L (21.0-32.0); CHLORIDE - SERUM 103 mmol/L (98-107); CREATININE - SERUM 4.6 mg/dL (0.6-1.3); GLUCOSE 140 mg/dL (74-106); POTASSIUM - SERUM 3.4 mmol/L (3.5-5.1); SODIUM 140 mmol/L (136-145); UREA NITROGEN 41 mg/dL (7-18); eGFR NON AFRICAN AMERICAN 10 mL/min (90-120)
[2020-05-06 19:33] LABS: ALBUMIN 4.1 g/dL (3.4-5.0); ALKALINE PHOSPHATASE 57 U/L (30-120); BILIRUBIN - TOTAL 1.11 mg/dL (0.2-1.3); CKMB 1.1 U/L (0.0-3.6); MAGNESIUM - SERUM 1.5 mg/dL (1.8-2.4); PROTEIN - SERUM 6.3 g/dL (6.4-8.2)
[2020-05-06 19:34] LABS: ALT (SGPT) 5 U/L (10-68); TROPONIN-I 0.291 ng/mL (0.000-0.060)
[2020-05-06 22:45] VITALS: BP 155/83
[2020-05-07] VITALS (15 sets, daily range): BP systolic 91–187; BP diastolic 63–115
--- NOTE | 2020-05-07 04:00 | NUR ---
Pt recieved around 2200 with no acute distress noted. Pt has an O2 sat of 88% on 6L NC, so a non rebreather was placed on the Pt. This seemed to maintain the Pt's O2 sat >92%. Around 0220 the Pt had a central line placed to the left IJ via Dr. Mauro. Multiple attempts per 3 nurses were made to obtain IV access without any success. Pt is now resting in bed, with no acute distress noted. Assessment done per flow sheet, meds per OCT, call light in reach, bed in low position.
[2020-05-07 05:06] LABS: BASOPHILS 0 % (0-2); EOSINOPHILS 0.1 % (0-7); HEMATOCRIT 31.3 % (36.0-48.0); HEMOGLOBIN 9.9 g/dL (12-16); IMMATURE GRANULOCYTES 0.6 % (0-5); LYMPHOCYTES 9.5 % (15-50); MCH 27.4 pg (26.0-34.0); MCHC 31.6 g/dL (31.0-37.0); MCV 86.7 fL (80.0-100.0); MEAN PLATELET VOLUME 10.4 fL (7.4-10.4); NEUTROPHILS 82.8 % (40-80); PLATELET COUNT 109 10x3/uL (130-400); RBC 3.61 10x6/uL (4.00-5.40); RDW 15.5 % (11.5-14.5); WBC 8.7 10x3/uL (4.8-10.8)
[2020-05-07 05:19] LABS: ANION GAP 17.3 mmol/L (8-16); CALCIUM 9.3 mg/dL (8.5-10.1); CARBON DIOXIDE 25.2 mmol/L (21.0-32.0); MAGNESIUM - SERUM 1.6 mg/dL (1.8-2.4); POTASSIUM - SERUM 3.5 mmol/L (3.5-5.1)
--- NOTE | 2020-05-07 07:30 | NUR ---
REPORT RECIEVED. PT SITTING SEMI FOWLERS IN BED. RR EVEN AND UNLABORED ON RA. SHE HAS A R CHEST HEMO SPLIT AND A L IJ. PT IS CURRENTLY VOMITTING GREEN LIQUID. BED LOCKED AND IN LOWEST POSITION. CALL LIGHT WITHIN REACH. WILL CTM
--- NOTE | 2020-05-07 11:44 | MORECARE ---
CASE MANAGEMENT DISCHARGE SUMMARY PATIENT: RUCHI WOODS UNIT: [id number] ADM DATE: 04/22/20 AGE: 64 : 57 SEX: F ROOM/BED: D.2311 AUTHOR: TYESHA,DOC PHYSICIAN: REFERRING PHYSICIAN: THIAGO MILLIGAN MD DATE OF SERVICE: 05/07/20 Discharge Plan Patient Name: RUCHI WOODS Facility: [facility]:[place] : 1955 Planned Disposition: Anticipated Discharge Date: Discharge Date: Expected LOS: Initial Reviewer: [email or web address] Initial Review Date: 04/25/2020 Generated: 05/07/20 12:43 pm Comments DCP- Discharge Planning Updated by [email or web address]: Denia Rod on 05/07/20 10:[address] CM received a call from Norma Banks, ([employer]) with place/day HD. HD: M/W/F @0720, [facility] chair time 0720. Patient is to be at the facility @0700 for paperwork, bring a blanket, insurance card, ID, medication list. DCP- Discharge Planning Updated by [email or web address]: Chloe aMrley on 05/06/20 4:[address] CM received a call from Norma Williamson, states she is having difficulty with her insurance. I called Jose, nephew, and gave her Norma's number per her request. DCP- Discharge Planning Updated by [id number]: Chloe Marley on 05/01/20 2:[address] CM called Norma and left a message on her answering machine that I needed an OP dialysis chair set up for patient. CM will continue to follow and assist with discharge planning/needs. DCP- Discharge Planning Updated by [id number]: Chloe Marley on 05/01/20 12:[address] After 3rd call to [facility], I reached Nasra. Nasra states she is now down to 5 days of rehab and they would not be able to accept patient. I spoke with the patient about penitentiary care. She does not want penitentiary care, she would like to go home with [facility]. She is telling me she has changed her mind about dialysis and now would like to be started on dialysis. I notified Soumya and she is calling nephrology. I notified Jostin Beckwith APN. CM will continue to follow and assist with discharge planning/needs. DCP- Discharge Planning Updated by [id number]: Chloe Ayaka on 04/29/20 7:[address] Updated notes faxed to [facility]. DCP- Discharge Planning Updated by [id number]: Chloe Warddestinee on 04/25/20 2:[address] I received a call from Irma with [facility] rehab. Irma states that she has enough available days that they can accept her if she is able to participate in therapy more. I spoke with the patient and encouraged her to work as much as she can with therapy. CM will continue to send therapy notes daily to [facility]. DCP- Discharge Planning Updated by [email or web address]: Chloe Ayaka on 04/25/20 10:[address] Clinical faxed to [facility] for review. CM will continue to follow and assist with discharge needs. DCP- Discharge Planning Updated by [id number]: Chloe Ayaka on 04/25/20 10:[address] Patient Name: RUCHI WOODS Admission Status: ER Accout number: [id number] Admission Date: 04-22-2020 : 1955 Admission Diagnosis:URINARY TRACT INFECTION, SITE NOT SPECIFIED Attending: THIAGO MILLIGAN Current LOS: 3 Anticipated DC Date: Planned Disposition: Primary Insurance: MEDICAID [place] Discharge Planning Comments: CM met with patient to complete initial dc planning assessment. CM educated patient on the CM role and verbal consent given by patient to complete assessment. Patient lives at home alone, states her nephew lives on the same property and helps her with needs. CM discussed availability of home health, rehab services, and medical equipment. I informed her that her insurance would not cover SNF. The only inpatient rehab that could possibly consider her is [facility] on [address]. She states she has been there before and would like a referral. She refuses long-term placement. States if [facility] cannot except, she would go home with resumption of [facility] health. She does not have oxygen at home, would need a room air sat prior to discharge to assess for home oxygen needs. CM will continue to follow and will assist as needed with dc plans/needs. X Ray Inspector: Chloe Marley DCPIA - Discharge Planning Initial Assessment Updated by [id number]: Chloe Marley on 04/25/20 10:47 am * Is the patient Alert and Oriented? Yes * How many steps to enter\exit or inside your home? RAMP/0 * PCP Dr. Beaulieu * Pharmacy [facility] in [place] * Preadmission Environment Home Alone * ADLs Partial Dependent * Partial ADLs (Assistance needed) Ambulation Bathing Dressing Medication Management Transfers * Equipment Other Walker * Other Equipment Motorized wheelchair * List name and contact numbers for known caregivers / representatives who currently or will assist patient after discharge: Jose sebastian - [phone] * Verbal permission to speak to the caregivers and representatives has been obtained from the patient. Yes * Community resources currently utilized Home Health * Please name any agencies selected above. [facility] home health * Additional services required to return to the preadmission environment? Yes * Can the patient safely return to the preadmission environment? No * Has this patient been hospitalized within the prior 30 days at any hospital? Yes Coverage Notice Reviewer: [id number] - Chloe Marley Notice Issued Date-Time: 04/25/2020 11:52 Notice Type: Patient Choice Letter Notice Delivered To: Patient Relationship to Patient: Self Rag Collector Name: Delivery Method: HAND - Hand Delivered Edel Days: Prior Verbal Notification: Recipient Understood Notice: Yes Recipient Signature: Yes Med Rec Note Co-signed by Attending: Coverage Notice Comment: [facility] [address], [facility] Last DP export: 05/06/20 4:34 p Patient Name: RUCHI WOODS Page 39871 at 1144 All edits/amendments must be made on the electronic document DICTATION DATE: 05/07/20 1143 BUFFET RUNNER: FOREST 05/07/20 1143 RPT#: [id number] DC DATE: STATUS: ADM IN [facility] [address] [place] [address] END OF REPORT
--- NOTE | 2020-05-07 14:18 | NUR ---
PT HAD VOMITTED A SMALL AMOUNT OF DARK GREEN LIQUID. PT CLEANED UP. PT ABLE TO TELL ME WHO HER NEPHEW IS. AND WHO AND WHERE IS WAS. BED LOCKED AND IN LOWEST POSITION, CALL LIGHT WITHIN REACH. WILL CTM
--- NOTE | 2020-05-07 21:35 | MORECARE ---
CASE MANAGEMENT DISCHARGE SUMMARY PATIENT: RUCHI WOODS UNIT: [id number] ADM DATE: 04/22/20 AGE: 64 : 57 SEX: F ROOM/BED: D.2311 AUTHOR: TYESHA,DOC PHYSICIAN: REFERRING PHYSICIAN: THIAGO MILLIGAN MD DATE OF SERVICE: 05/07/20 Discharge Plan Patient Name: RUCHI WOODS Facility: [facility]:[place] : 1955 Planned Disposition: Anticipated Discharge Date: Discharge Date: Expected LOS: Initial Reviewer: [email or web address] Initial Review Date: 04/25/2020 Generated: 05/07/20 10:35 pm Comments DCP- Discharge Planning Updated by [email or web address]: Carrie Emmanuel on 05/07/20 8:[address] CM was notified late morning to transfer patient to a facility that has neuro since patient is new onset of seizures. CM had called and spoke with dimension warehouse supervisor at [facility] and she will call CM back once room is available expecting discharges. CM was notified at 1530 not to transfer patient that Dr. Valderrama will come in this evening to see patient. CM will continue to follow and assist as needed with d/c needs. DCP- Discharge Planning Updated by [email or web address]: Denia Rod on 05/07/20 10:[address] CM received a call from Norma Banks, ([facility]) with place/day HD. HD: M/W/F @0720, [facility] ORDC chair time 0720. Patient is to be at the facility @0700 for paperwork, bring a blanket, insurance card, ID, medication list. DCP- Discharge Planning Updated by [email or web address]: Chloe Marley on 05/06/20 4:[address] CM received a call from Norma Williamson, states she is having difficulty with her insurance. I called Jose, nephew, and gave her Norma's number per her request. DCP- Discharge Planning Updated by [id number]: Chloe Marley on 05/01/20 2:[address] CM called Norma and left a message on her answering machine that I needed an OP dialysis chair set up for patient. CM will continue to follow and assist with discharge planning/needs. DCP- Discharge Planning Updated by [email or web address]: Chloe Warddestinee on 05/01/20 12:[address] After 3rd call to [facility], I reached Nasra. Nasra states she is now down to 5 days of rehab and they would not be able to accept patient. I spoke with the patient about retirement care. She does not want retirement care, she would like to go home with [facility]. She is telling me she has changed her mind about dialysis and now would like to be started on dialysis. I notified Soumya and she is calling nephrology. I notified Jostin Beckwith APN. CM will continue to follow and assist with discharge planning/needs. DCP- Discharge Planning Updated by [email or web address]: Chloe Warddestinee on 04/29/20 7:[address] Updated notes faxed to [facility]. DCP- Discharge Planning Updated by [email or web address]: Chloe Warddestinee on 04/25/20 2:[address] I received a call from Irma with [facility] rehab. Irma states that she has enough available days that they can accept her if she is able to participate in therapy more. I spoke with the patient and encouraged her to work as much as she can with therapy. CM will continue to send therapy notes daily to [facility]. DCP- Discharge Planning Updated by [email or web address]: Chloe Warddestinee on 04/25/20 10:[address] Clinical faxed to [facility] for review. CM will continue to follow and assist with discharge needs. DCP- Discharge Planning Updated by [email or web address]: Chloe Warddestinee on 04/25/20 10:[address] Patient Name: RUCHI WOODS Admission Status: ER Accout number: [id number] Admission Date: 04-22-2020 : 1955 Admission Diagnosis:URINARY TRACT INFECTION, SITE NOT SPECIFIED Attending: THIAGO MILLIGAN Current LOS: 3 Anticipated DC Date: Planned Disposition: Primary Insurance: MEDICAID [place] Discharge Planning Comments: CM met with patient to complete initial dc planning assessment. CM educated patient on the CM role and verbal consent given by patient to complete assessment. Patient lives at home alone, states her nephew lives on the same property and helps her with needs. CM discussed availability of home health, rehab services, and medical equipment. I informed her that her insurance would not cover SNF. The only inpatient rehab that could possibly consider her is [facility] on [address]. She states she has been there before and would like a referral. She refuses fci placement. States if [facility] cannot except, she would go home with resumption of [facility] health. She does not have oxygen at home, would need a room air sat prior to discharge to assess for home oxygen needs. CM will continue to follow and will assist as needed with dc plans/needs. Medical And Scientific Illustrator: Chloe Marley DCPIA - Discharge Planning Initial Assessment Updated by [email or web address]: Chloe Marley on 04/25/20 10:47 am * Is the patient Alert and Oriented? Yes * How many steps to enter\exit or inside your home? RAMP/0 * PCP Dr. Beaulieu * Pharmacy [facility] in [place] * Preadmission Environment Home Alone * ADLs Partial Dependent * Partial ADLs (Assistance needed) Ambulation Bathing Dressing Medication Management Transfers * Equipment Other Walker * Other Equipment Motorized wheelchair * List name and contact numbers for known caregivers / representatives who currently or will assist patient after discharge: Jose sebastian - [phone] * Verbal permission to speak to the caregivers and representatives has been obtained from the patient. Yes * Community resources currently utilized Home Health * Please name any agencies selected above. [facility] health * Additional services required to return to the preadmission environment? Yes * Can the patient safely return to the preadmission environment? No * Has this patient been hospitalized within the prior 30 days at any hospital? Yes Coverage Notice Reviewer: [email or web address] - Chloe Marley Notice Issued Date-Time: 04/25/2020 11:52 Notice Type: Patient Choice Letter Notice Delivered To: Patient Relationship to Patient: Self Track Walker Name: Delivery Method: HAND - Hand Delivered Edel Days: Prior Verbal Notification: Recipient Understood Notice: Yes Recipient Signature: Yes Med Rec Note Co-signed by Attending: Coverage Notice Comment: TENISHA FOR MANUELJAYLAFRANCA [facility], [facility] Last DP export: 05/07/20 10:44 a Patient Name: RUCHI WOODS Page 48211 at 2133 All edits/amendments must be made on the electronic document DICTATION DATE: 05/07/202134 CONSERVATION ENFORCEMENT OFFICER: DM 05/07/202134 RPT#: [id number] DC DATE: STATUS: ADM IN [facility] [address] [place] [address] END OF REPORT
[2020-05-08] VITALS: BP 119/71
[2020-05-08 01:00] VITALS: BP 124/75
[2020-05-08 02:00] VITALS: BP 129/72
[2020-05-08 03:00] VITALS: BP 123/78
--- NOTE | 2020-05-08 04:28 | NUR ---
Pt transfered to room 2115, no distress noted, report given to nurse.
[2020-05-08 05:14] LABS: BASOPHILS 0 % (0-2); EOSINOPHILS 0 % (0-7); HEMATOCRIT 28.2 % (36.0-48.0); HEMOGLOBIN 8.9 g/dL (12-16); IMMATURE GRANULOCYTES 0.5 % (0-5); LYMPHOCYTES 20.2 % (15-50); MCHC 31.6 g/dL (31.0-37.0); MCV 85.5 fL (80.0-100.0); MONOCYTES 8.5 % (2-11); NEUTROPHILS 70.8 % (40-80); PLATELET COUNT 94 10x3/uL (130-400); RDW 15.4 % (11.5-14.5)
[2020-05-08 05:37] LABS: ANION GAP 14.1 mmol/L (8-16); CALCIUM 8.8 mg/dL (8.5-10.1); CARBON DIOXIDE 27.8 mmol/L (21.0-32.0); CREATININE - SERUM 3.5 mg/dL (0.6-1.3); MAGNESIUM - SERUM 1.6 mg/dL (1.8-2.4); POTASSIUM - SERUM 2.9 mmol/L (3.5-5.1)
--- NOTE | 2020-05-08 10:30 | NUR ---
LEAVING FOR DIALYSIS BY BED. WILL CONT. PLAN OF CARE.
[2020-05-08 10:52] VITALS: BP 145/77
--- NOTE | 2020-05-08 13:07 | NUR ---
Nutrition Follow-up: Pt confused. Unavailable at time of visit. HD today. Has been vomiting; GI following. Diet: Renal Wt: 185# (04/23) Labs noted: K+ 2.9, Glu 110, PO4 2.0, Mg 1.6 Meds noted: Zofran, Florajen, Albumin, Bumex, Colace, NS @ KVO, electrolyte protocol -Encourage PO intake and honor food preferences within diet restrictions. -Offer Nepro with meals. -Need new wt if possible; noted daily wts ordered.
--- NOTE | 2020-05-08 13:21 | NUR ---
BACK FROM DIALYSIS. B/P 112/66. WILL CONT. PLAN OF CARE.
--- NOTE | 2020-05-08 16:26 | NUR ---
CVL DRSG CHANGED TO RIGHT IJ TL AND HEMASPLIT SITES.
--- NOTE | 2020-05-08 19:22 | NUR ---
REPORT RECIEVED AND ROUNDING COMPLETE. PATIENT LAYING IN BED EYES CLOSED, BREATHING EVENA ND UNLABORED. AROUSED EASILY, PATIENT REQUESTED A CUP OF ICE WHICH SHE RECIEVED. DALAL CATH INTACT WITH SCANT DARK URINE IN DALAL BAG. RIGHT CHEST HEMASPLIT, DRESSING C/D/I. LEFT IJ TRIPLE LUMEN PATENT WITH FLUIDS RUNNING AT TIME. NO DISTRESS NOTED. CALL LIGHT WITHIN REACH AND BED IN LOWEST LOCKED POSITION.
[2020-05-08 20:00] VITALS: BP 148/71
[2020-05-09 04:00] VITALS: BP 163/81
[2020-05-09 06:54] LABS: BASOPHILS 0 % (0-2); EOSINOPHILS 0.6 % (0-7); HEMATOCRIT 28.3 % (36.0-48.0); LYMPHOCYTES 23.3 % (15-50); MCH 27.7 pg (26.0-34.0); MCHC 31.8 g/dL (31.0-37.0); MCV 87.1 fL (80.0-100.0); MEAN PLATELET VOLUME 10.2 fL (7.4-10.4); MONOCYTES 8.5 % (2-11); NEUTROPHILS 66.6 % (40-80); RBC 3.25 10x6/uL (4.00-5.40); RDW 15.6 % (11.5-14.5)
[2020-05-09 07:31] LABS: PLATELET COUNT 120 10x3/uL (130-400)
[2020-05-09 07:47] LABS: ALBUMIN 3.9 g/dL (3.4-5.0); ANION GAP 17.3 mmol/L (8-16); BILIRUBIN - TOTAL 0.74 mg/dL (0.2-1.3); CARBON DIOXIDE 24.1 mmol/L (21.0-32.0); CREATININE - SERUM 2.9 mg/dL (0.6-1.3); POTASSIUM - SERUM 3.4 mmol/L (3.5-5.1); PROTEIN - SERUM 6.2 g/dL (6.4-8.2)
[2020-05-09 07:49] LABS: MAGNESIUM - SERUM 2.1 mg/dL (1.8-2.4)
[2020-05-09 07:54] LABS: PHOSPHOROUS 1.4 mg/dL (2.5-4.9)
[2020-05-09 08:10] VITALS: BP 149/76
[2020-05-09 11:58] VITALS: BP 120/73
[2020-05-09 15:58] VITALS: BP 179/83
[2020-05-09 20:21] VITALS: BP 162/81
[2020-05-10] VITALS: BP 161/80
--- NOTE | 2020-05-10 01:00 | NUR ---
CVL DRESSING CHANGED.
[2020-05-10 04:42] VITALS: BP 161/87
[2020-05-10 06:40] LABS: BASOPHILS 0 % (0-2); EOSINOPHILS 1.6 % (0-7); HEMATOCRIT 29.4 % (36.0-48.0); HEMOGLOBIN 9.1 g/dL (12-16); IMMATURE GRANULOCYTES 0.8 % (0-5); LYMPHOCYTES 21.5 % (15-50); MCH 27.1 pg (26.0-34.0); MCV 87.5 fL (80.0-100.0); MEAN PLATELET VOLUME 10.1 fL (7.4-10.4); MONOCYTES 6.8 % (2-11); NEUTROPHILS 69.3 % (40-80); RBC 3.36 10x6/uL (4.00-5.40); RDW 15.5 % (11.5-14.5)
[2020-05-10 06:44] LABS: PLATELET COUNT 151 10x3/uL (130-400)
[2020-05-10 07:15] LABS: ALBUMIN 3.9 g/dL (3.4-5.0); ANION GAP 16.3 mmol/L (8-16); BILIRUBIN - TOTAL 0.75 mg/dL (0.2-1.3); CALCIUM 8.7 mg/dL (8.5-10.1); CARBON DIOXIDE 25.2 mmol/L (21.0-32.0); CREATININE - SERUM 3.5 mg/dL (0.6-1.3); MAGNESIUM - SERUM 1.9 mg/dL (1.8-2.4); POTASSIUM - SERUM 3.5 mmol/L (3.5-5.1)
[2020-05-10 07:17] LABS: PHOSPHOROUS 2.3 mg/dL (2.5-4.9)
[2020-05-10 09:52] VITALS: BP 164/81
--- NOTE | 2020-05-10 13:01 | NUR ---
D/C DALAL CATHETER PER ORDERS. DEFLATED THE BALLOON WITH 9ML. EMPTIED 175ML OUT OF DALAL BAG. PATIENT TOLERATED WELL.
[2020-05-10 13:12] LABS: BILIRUBIN NEGATIVE (NEGATIVE); KETONE SMALL mg/dL (NEGATIVE); NITRITE NEGATIVE (NEGATIVE); UROBILINOGEN NORMAL mg/dL (< 2)
[2020-05-10 13:15] LABS: BACTERIA MODERATE HPF (NONE SEEN); EPITHELIAL CELLS 0-5 /hpf (0-5)
--- NOTE | 2020-05-10 14:02 | NUR ---
Nutrition Follow-up: Attempting to eat breakfast at time of visit this AM. EGD yesterday. Noted plans for GES when able. Diet: Renal Wt: 185# (04/23) Labs noted: Na 143, K+ 3.5, PO4 2.3, Alb 3.9 Meds noted: Carafate, Neutra-Phos, Albumin, Protonix, Bumex, Zofran -Encourage PO intake and honor food preferences within diet restrictions. -Need new wt if possible; noted daily wts ordered. -RD following.
[2020-05-10 14:28] VITALS: BP 170/75
--- NOTE | 2020-05-10 15:08 | NUR ---
PATIENT IN DIALYSIS.
[2020-05-10 21:41] VITALS: BP 171/75
[2020-05-11 04:40] VITALS: BP 176/72
[2020-05-11 06:34] LABS: BASOPHILS 0.6 % (0-2); EOSINOPHILS 1.7 % (0-7); HEMATOCRIT 27.5 % (36.0-48.0); HEMOGLOBIN 8.6 g/dL (12-16); IMMATURE GRANULOCYTES 0.4 % (0-5); LYMPHOCYTES 19.9 % (15-50); MCH 27.3 pg (26.0-34.0); MCHC 31.3 g/dL (31.0-37.0); MCV 87.3 fL (80.0-100.0); MEAN PLATELET VOLUME 9.7 fL (7.4-10.4); MONOCYTES 5.6 % (2-11); NEUTROPHILS 71.8 % (40-80); PLATELET COUNT 122 10x3/uL (130-400); RBC 3.15 10x6/uL (4.00-5.40); RDW 15.4 % (11.5-14.5); WBC 5.4 10x3/uL (4.8-10.8)
[2020-05-11 07:00] LABS: ALBUMIN 3.8 g/dL (3.4-5.0); ANION GAP 12.2 mmol/L (8-16); BILIRUBIN - TOTAL 0.82 mg/dL (0.2-1.3); CALCIUM 8.2 mg/dL (8.5-10.1); CARBON DIOXIDE 26.8 mmol/L (21.0-32.0); PROTEIN - SERUM 5.9 g/dL (6.4-8.2)
[2020-05-11 07:07] LABS: CREATININE - SERUM 2.6 mg/dL (0.6-1.3)
[2020-05-11 08:00] VITALS: BP 146/63
[2020-05-11 10:30] VITALS: BP 156/77
--- NOTE | 2020-05-11 12:58 | NUR ---
PT HAD LARGE INCONTINENT EPISODE OF BOWEL. BOWEL WAS GREEN AND RUNNY. CLEANED PT AND APPLIED NEW LINEN. APPLIED FLAKITO TO ABD FOLDS, UNDER BREAST, ON BUTTOCK AND COCCYX. THERE WERE 3 OPEN PRESSURE WOUNDS, TWO ON THE RIGHT CHEEK AND ONE ON THE LEFT CHEEK. ALL THREE WERE BLEEDING AND OPEN. CLEANED, FLAKITO APPLIED, AND MEPILEX DRESSINGS WERE PLACED OVER THE SORES. NOTIFIED COMPENSATION AND BENEFITS MANAGER'S OF THE IMPORTANCE OF TURNING THE PATIENT. WILL CTM. WILL CONTINUE TURNING PT Q2HR.
[2020-05-11 15:00] VITALS: BP 111/70
[2020-05-11 21:42] VITALS: BP 141/78
[2020-05-12 01:49] VITALS: BP 154/77
[2020-05-12 05:39] VITALS: BP 142/70
[2020-05-12 07:06] LABS: BASOPHILS 0.2 % (0-2); EOSINOPHILS 1.4 % (0-7); HEMATOCRIT 25.5 % (36.0-48.0); HEMOGLOBIN 8.1 g/dL (12-16); IMMATURE GRANULOCYTES 0.4 % (0-5); LYMPHOCYTES 21.1 % (15-50); MCH 27.6 pg (26.0-34.0); MCHC 31.8 g/dL (31.0-37.0); MEAN PLATELET VOLUME 9.6 fL (7.4-10.4); MONOCYTES 4.7 % (2-11); NEUTROPHILS 72.2 % (40-80); PLATELET COUNT 113 10x3/uL (130-400); RBC 2.93 10x6/uL (4.00-5.40); RDW 15.1 % (11.5-14.5); WBC 5.1 10x3/uL (4.8-10.8)
[2020-05-12 07:34] LABS: ALBUMIN 3.8 g/dL (3.4-5.0); ANION GAP 14.3 mmol/L (8-16); BILIRUBIN - TOTAL 0.77 mg/dL (0.2-1.3); CALCIUM 8.4 mg/dL (8.5-10.1); CARBON DIOXIDE 25.1 mmol/L (21.0-32.0); CREATININE - SERUM 3.2 mg/dL (0.6-1.3); POTASSIUM - SERUM 3.4 mmol/L (3.5-5.1); PROTEIN - SERUM 5.9 g/dL (6.4-8.2)
[2020-05-12 08:18] VITALS: BP 150/71
--- NOTE | 2020-05-12 14:00 | NUR ---
CVL DRESSING CHANGE TO L.IJ. NEW NEEDLELESS CONNECTORS IN PLACE WITH NEW SWABCAPS. CVL DRESSING CHANGED PER PROTOCOL. OLD SATURATED DRESSING REMOVED. SITE WAS CLEANED, NEW BIOPATCH, NEW LABELED DRESSING IN PLACE. ALL THREE LINES WERE FLUSHED AND CLEANED APPROPRIATELY WITH SWABCAPS IN USE. WILL CTM.
[2020-05-12 17:41] VITALS: BP 156/66
[2020-05-12 21:30] VITALS: BP 148/71
[2020-05-13 01:30] VITALS: BP 183/77
[2020-05-13 04:35] VITALS: BP 172/76
[2020-05-13 06:51] LABS: ALBUMIN 3.8 g/dL (3.4-5.0); ALKALINE PHOSPHATASE 45 U/L (30-120); BILIRUBIN - TOTAL 0.75 mg/dL (0.2-1.3); CALC OSMOLALITY 281 mosm/kg (275-300); CALCIUM 8.3 mg/dL (8.5-10.1); CARBON DIOXIDE 24.2 mmol/L (21.0-32.0); CHLORIDE - SERUM 105 mmol/L (98-107); CREATININE - SERUM 3.9 mg/dL (0.6-1.3); GLUCOSE 83 mg/dL (74-106); POTASSIUM - SERUM 3.5 mmol/L (3.5-5.1); PROTEIN - SERUM 5.9 g/dL (6.4-8.2); SODIUM 140 mmol/L (136-145); UREA NITROGEN 24 mg/dL (7-18); eGFR NON AFRICAN AMERICAN 12 mL/min (90-120)
[2020-05-13 06:55] LABS: ALT (SGPT) < 6 U/L (10-68)
[2020-05-13 07:25] LABS: BASOPHILS 0.8 % (0-2); HEMATOCRIT 24.7 % (36.0-48.0); HEMOGLOBIN 7.9 g/dL (12-16); IMMATURE GRANULOCYTES 0.8 % (0-5); MCV 87.6 fL (80.0-100.0); MEAN PLATELET VOLUME 9.7 fL (7.4-10.4); MONOCYTES 6.3 % (2-11); NEUTROPHILS 65.1 % (40-80); PLATELET COUNT 115 10x3/uL (130-400); RBC 2.82 10x6/uL (4.00-5.40); RDW 15.3 % (11.5-14.5)
[2020-05-13 09:39] VITALS: BP 167/83
--- NOTE | 2020-05-13 10:32 | NUR ---
PT TRANSFERED TO DIALYSIS. WILL CTM.
--- NOTE | 2020-05-13 14:57 | NUR ---
PT RETURN FROM DIALYSIS. WILL CTM.
--- NOTE | 2020-05-13 19:07 | NUR ---
RECEIVED BEDSIDE REPORT. ROUNDING COMPLETE. PATIENT RESTING COMFORTABLY IN BED. RESPIRATIONS ARE EVEN AND UNLABORED. NO S/S OF DISTRESS. NO C/O PAIN. CALL LIGHT WITHIN REACH. WILL CPOC.
[2020-05-13 22:24] VITALS: BP 130/58
[2020-05-14 03:19] VITALS: BP 143/66
[2020-05-14 03:53] LABS: BASOPHILS 0.3 % (0-2); EOSINOPHILS 1.7 % (0-7); HEMATOCRIT 26.6 % (36.0-48.0); HEMOGLOBIN 8.4 g/dL (12-16); LYMPHOCYTES 25.7 % (15-50); MCH 27.5 pg (26.0-34.0); MCHC 31.6 g/dL (31.0-37.0); MCV 87.2 fL (80.0-100.0); MEAN PLATELET VOLUME 9.6 fL (7.4-10.4); MONOCYTES 8.4 % (2-11); NEUTROPHILS 63.9 % (40-80); PLATELET COUNT 95 10x3/uL (130-400); PLATELET ESTIMATE DECREASED; RBC 3.05 10x6/uL (4.00-5.40); RDW 14.9 % (11.5-14.5); WBC 3.6 10x3/uL (4.8-10.8)
[2020-05-14 04:06] LABS: ALBUMIN 3.3 g/dL (3.4-5.0); ANION GAP 13.6 mmol/L (8-16); BILIRUBIN - TOTAL 0.68 mg/dL (0.2-1.3); CALCIUM 8.1 mg/dL (8.5-10.1); CARBON DIOXIDE 24.8 mmol/L (21.0-32.0); CREATININE - SERUM 2.6 mg/dL (0.6-1.3); POTASSIUM - SERUM 3.4 mmol/L (3.5-5.1); PROTEIN - SERUM 5.8 g/dL (6.4-8.2)
[2020-05-14 07:00] VITALS: BP 142/73
[2020-05-14 10:30] VITALS: BP 136/76
--- NOTE | 2020-05-14 10:39 | MORECARE ---
CASE MANAGEMENT DISCHARGE SUMMARY PATIENT: RUCHI WOODS UNIT: [id number] ADM DATE: 04/22/20 AGE: 64 : 57 SEX: F ROOM/BED: D.2735 AUTHOR: TYESHA,DOC PHYSICIAN: REFERRING PHYSICIAN: THIAGO MILLIGAN MD DATE OF SERVICE: 05/14/20 Discharge Plan Patient Name: RUCHI WOODS Facility: [facility]:[place] : 1955 Planned Disposition: Anticipated Discharge Date: Discharge Date: Expected LOS: Initial Reviewer: [email or web address] Initial Review Date: 04/25/2020 Generated: 05/14/20 11:38 am Comments DCP- Discharge Planning Updated by [email or web address]: Chloe Marley on 05/14/20 9:[address] Patient is in isolation. I spoke with nephew, Jose, to review options for post acute care. I informed him at this time, she is not able to go home to take care of herself. I informed him of the nursing facilities in the area, including [facility]. He is going to discuss with patient about skilled nursing vs skilled nursing with hospice. CM will continue to follow and assist with discharge planning/needs. DCP- Discharge Planning Updated by [email or web address]: Carrie Emmanuel on 05/07/20 8:[address] CM was notified late morning to transfer patient to a facility that has neuro since patient is new onset of seizures. CM had called and spoke with house superintendent at [facility] and she will call CM back once room is available expecting discharges. CM was notified at 1530 not to transfer patient that Dr. Valderrama will come in this evening to see patient. CM will continue to follow and assist as needed with d/c needs. DCP- Discharge Planning Updated by [email or web address]: Denia Rod on 05/07/20 10:[address] CM received a call from Norma Banks, ([facility]) with place/day HD. HD: M/W/F @0720, [facility] ORD chair time 0720. Patient is to be at the facility @0700 for paperwork, bring a blanket, insurance card, ID, medication list. DCP- Discharge Planning Updated by [email or web address]: Chloe Marley on 05/06/20 4:[address] CM received a call from Norma Teri, states she is having difficulty with her insurance. I called Jose, nephew, and gave her Norma's number per her request. DCP- Discharge Planning Updated by [email or web address]: Chloe Marley on 05/01/20 2:[address] CM called Norma and left a message on her answering machine that I needed an OP dialysis chair set up for patient. CM will continue to follow and assist with discharge planning/needs. DCP- Discharge Planning Updated by [id number]: Chloe Marley on 05/01/20 12:[address] After 3rd call to [facility], I reached Nasra. Nasra states she is now down to 5 days of rehab and they would not be able to accept patient. I spoke with the patient about fpc care. She does not want oysterman care, she would like to go home with [facility]. She is telling me she has changed her mind about dialysis and now would like to be started on dialysis. I notified Soumya and she is calling nephrology. I notified Jostin Beckwith APN. CM will continue to follow and assist with discharge planning/needs. DCP- Discharge Planning Updated by [email or web address]: Chloe Marley on 04/29/20 7:[address] Updated notes faxed to [facility]. DCP- Discharge Planning Updated by [id number]: Chloe Marley on 04/25/20 2:[address] I received a call from Irma with [facility] rehab. Irma states that she has enough available days that they can accept her if she is able to participate in therapy more. I spoke with the patient and encouraged her to work as much as she can with therapy. CM will continue to send therapy notes daily to [facility]. DCP- Discharge Planning Updated by [email or web address]: Chloe Marley on 04/25/20 10:[address] Clinical faxed to [facility] for review. CM will continue to follow and assist with discharge needs. DCP- Discharge Planning Updated by [email or web address]: Chloe Warddestinee on 04/25/20 10:[address] Patient Name: RUCHI WOODS Admission Status: ER Accout number: [id number] Admission Date: 04-22-2020 : 1955 Admission Diagnosis:URINARY TRACT INFECTION, SITE NOT SPECIFIED Attending: THIAGO MILLIGAN Current LOS: 3 Anticipated DC Date: Planned Disposition: Primary Insurance: MEDICAID [place] Discharge Planning Comments: CM met with patient to complete initial dc planning assessment. CM educated patient on the CM role and verbal consent given by patient to complete assessment. Patient lives at home alone, states her nephew lives on the same property and helps her with needs. CM discussed availability of home health, rehab services, and medical equipment. I informed her that her insurance would not cover SNF. The only inpatient rehab that could possibly consider her is [facility] on [address]. She states she has been there before and would like a referral. She refuses skilled nursing placement. States if [facility] cannot except, she would go home with resumption of [facility] home health. She does not have oxygen at home, would need a room air sat prior to discharge to assess for home oxygen needs. CM will continue to follow and will assist as needed with dc plans/needs. Respiratory Services Manager: Chloe Marley DCPIA - Discharge Planning Initial Assessment Updated by [email or web address]: Chloe Marley on 04/25/20 10:47 am * Is the patient Alert and Oriented? Yes * How many steps to enter\exit or inside your home? RAMP/0 * PCP Dr. Beaulieu * Pharmacy [facility] in [place] * Preadmission Environment Home Alone * ADLs Partial Dependent * Partial ADLs (Assistance needed) Ambulation Bathing Dressing Medication Management Transfers * Equipment Other Walker * Other Equipment Motorized wheelchair * List name and contact numbers for known caregivers / representatives who currently or will assist patient after discharge: Jose sebastian - [phone] * Verbal permission to speak to the caregivers and representatives has been obtained from the patient. Yes * Community resources currently utilized Home Health * Please name any agencies selected above. [facility] home health * Additional services required to return to the preadmission environment? Yes * Can the patient safely return to the preadmission environment? No * Has this patient been hospitalized within the prior 30 days at any hospital? Yes Coverage Notice Reviewer: [id number] - Chloe Marley Notice Issued Date-Time: 04/25/2020 11:52 Notice Type: Patient Choice Letter Notice Delivered To: Patient Relationship to Patient: Self Automatic Trimming Sewer Name: Delivery Method: HAND - Hand Delivered Edel Days: Prior Verbal Notification: Recipient Understood Notice: Yes Recipient Signature: Yes Med Rec Note Co-signed by Attending: Coverage Notice Comment: TENISHA FOR ELVIRA FRANCA [facility], [facility] DP export: 05/07/20 8:35 p Patient Name: RUCHI WOODS Page [id number] at 1039 All edits/amendments must be made on the electronic document DICTATION DATE: 05/14/20 1039 GOLF CLUB HEAD INSPECTOR AND ADJUSTER: FOREST 05/14/20 1039 RPT#: [id number] DC DATE: STATUS: ADM IN [facility] [address] [place] [address] END OF REPORT
--- NOTE | 2020-05-14 13:17 | NUR ---
Nutrition Follow-up: Per GI, pt with continued N/V/abd pain; noted plans for possible surgery consult for GJ tube in the next couple of days. Procal @ 30 mL/hr started yesterday. Diet: Renal Wt: 185# (04/23) Labs noted: K+ 3.4, Ca 8.1, Alb 3.3 Meds noted: Bumex, Carafate, Neutra-Phos, Colace, Protonix, Zofran -Need new wt if possible. -RD following and available to assist as needed.
[2020-05-14 15:00] VITALS: BP 137/76
--- NOTE | 2020-05-14 16:00 | NUR ---
ZOFRAN DRIP TURNED OFF PER REQUEST TO SEE IF PT CAN TOLERATE NO N/V. PT HAS HAD THREE EPISODES OF VOMITING IN SPITE OF TURNING OFF ZOFRAN. WILL NOTIFY PHYSICIAN. WILL CTM.
--- NOTE | 2020-05-14 19:36 | NUR ---
RECEIVED BEDSIDE REPORT. ROUNDING COMPLETE. PATIENT RESTING COMFORTABLY IN BED. PATIENT PLACED ON FIRST STEP OVERLAY. CVL DRESSING CHANGED. RESPIRATIONS ARE EVEN AND UNLABORED. NO S/S OF DISTRESS. NO C/O PAIN. CALL LIGHT WITHIN REACH. WILL CPOC.
[2020-05-14 20:00] VITALS: BP 146/78
--- NOTE | 2020-05-14 21:46 | NUR ---
PATIENT HAD TO EPISODES OF VOMITING. DID NOT GIVE PO MEDS FOR THIS REASON.
[2020-05-15] VITALS: BP 152/77
[2020-05-15 03:46] LABS: BASOPHILS 0.2 % (0-2); EOSINOPHILS 1.6 % (0-7); HEMOGLOBIN 8.3 g/dL (12-16); IMMATURE GRANULOCYTES 0.5 % (0-5); LYMPHOCYTES 27.4 % (15-50); MCH 27.6 pg (26.0-34.0); MCHC 31.9 g/dL (31.0-37.0); MCV 86.4 fL (80.0-100.0); MEAN PLATELET VOLUME 9.6 fL (7.4-10.4); MONOCYTES 7.9 % (2-11); NEUTROPHILS 62.4 % (40-80); PLATELET COUNT 102 10x3/uL (130-400); RBC 3.01 10x6/uL (4.00-5.40); RDW 14.8 % (11.5-14.5); WBC 4.3 10x3/uL (4.8-10.8)
[2020-05-15 03:52] LABS: ALBUMIN 3.2 g/dL (3.4-5.0); ANION GAP 15.7 mmol/L (8-16); BILIRUBIN - TOTAL 0.58 mg/dL (0.2-1.3); CALCIUM 8.4 mg/dL (8.5-10.1); GENTAMICIN - RANDOM 2.9 ug/mL (0.5-2.0); POTASSIUM - SERUM 3.7 mmol/L (3.5-5.1); PROTEIN - SERUM 5.8 g/dL (6.4-8.2)
[2020-05-15 03:53] LABS: CREATININE - SERUM 3.4 mg/dL (0.6-1.3)
[2020-05-15 04:00] VITALS: BP 139/80
[2020-05-15 07:42] VITALS: BP 132/77
--- NOTE | 2020-05-15 09:36 | NUR ---
Pt has multiple open areas on her buttocks and posterior upper thighs. These wounds appear to be from shearing. Applied duoderm extra thin over left posterior thigh, right buttock and gluteal cleft for protection. Pt is on an air overlay mattress and is on a turn q 2 schedule. Have also recommended a easy glide sheet as pt is difficult to turn/reposition d/t size. It is noted that she has dried eschar on R #5 toe. There is no drainage or odor. Heels are dry and intact. Recommend keeping heels bridged to decrease risk of breaking down. There is yeasty redness noted in groin/perineal area. Wound care continues to monitor.
--- NOTE | 2020-05-15 14:55 | MORECARE ---
CASE MANAGEMENT DISCHARGE SUMMARY PATIENT: RUCHI WOODS UNIT: [id number] ADM DATE: 04/22/20 AGE: 64 : 57 SEX: F ROOM/BED: D.5215 AUTHOR: TYESHA,DOC PHYSICIAN: REFERRING PHYSICIAN: THIAGO MILLIGAN MD DATE OF SERVICE: 05/15/20 Discharge Plan Patient Name: RUCHI WOODS Facility: [facility]:[place] : 1955 Planned Disposition: Anticipated Discharge Date: Discharge Date: Expected LOS: Initial Reviewer: [id number] Initial Review Date: 04/25/2020 Generated: 05/15/20 3:55 pm Comments DCP- Discharge Planning Updated by [email or web address]: Chloe Marley on 05/14/20 9:[address] Patient is in isolation. I spoke with nephew, Jose, to review options for post acute care. I informed him at this time, she is not able to go home to take care of herself. I informed him of the nursing facilities in the area, including [facility]. He is going to discuss with patient about assisted vs assisted with hospice. CM will continue to follow and assist with discharge planning/needs. DCP- Discharge Planning Updated by [email or web address]: Carrie Emmanuel on 05/07/20 8:[address] CM was notified late morning to transfer patient to a facility that has neuro since patient is new onset of seizures. CM had called and spoke with warehouse shift supervisor at [facility] and she will call CM back once room is available expecting discharges. CM was notified at 1530 not to transfer patient that Dr. Valderrama will come in this evening to see patient. CM will continue to follow and assist as needed with d/c needs. DCP- Discharge Planning Updated by [email or web address]: Denia Rod on 05/07/20 10:[address] CM received a call from Norma Banks, ([facility]) with place/day HD. HD: M/W/F @0720, [facility] ORD chair time 0720. Patient is to be at the facility @0700 for paperwork, bring a blanket, insurance card, ID, medication list. DCP- Discharge Planning Updated by [email or web address]: Chloe Marley on 05/06/20 4:[address] CM received a call from Norma Teri, states she is having difficulty with her insurance. I called Jose, nephew, and gave her Norma's number per her request. DCP- Discharge Planning Updated by [email or web address]: Chloe Marley on 05/01/20 2:[address] CM called Norma and left a message on her answering machine that I needed an OP dialysis chair set up for patient. CM will continue to follow and assist with discharge planning/needs. DCP- Discharge Planning Updated by [email or web address]: Chloe Marley on 05/01/20 12:[address] After 3rd call to [facility], I reached Nasra. Nasra states she is now down to 5 days of rehab and they would not be able to accept patient. I spoke with the patient about ad terminal makeup operator care. She does not want ad terminal makeup operator care, she would like to go home with [facility]. She is telling me she has changed her mind about dialysis and now would like to be started on dialysis. I notified Soumya and she is calling nephrology. I notified Jostin Beckwith APN. CM will continue to follow and assist with discharge planning/needs. DCP- Discharge Planning Updated by [id number]: Chloe Marley on 04/29/20 7:[address] Updated notes faxed to [facility]. DCP- Discharge Planning Updated by [id number]: Chloe Marley on 04/25/20 2:[address] I received a call from Irma with [facility] rehab. Irma states that she has enough available days that they can accept her if she is able to participate in therapy more. I spoke with the patient and encouraged her to work as much as she can with therapy. CM will continue to send therapy notes daily to [facility]. DCP- Discharge Planning Updated by [email or web address]: Chloe Marley on 04/25/20 10:[address] Clinical faxed to [facility] for review. CM will continue to follow and assist with discharge needs. DCP- Discharge Planning Updated by [email or web address]: Chloe Warddestinee on 04/25/20 10:[address] Patient Name: RUCHI WOODS Admission Status: ER Accout number: [id number] Admission Date: 04-22-2020 : 1955 Admission Diagnosis:URINARY TRACT INFECTION, SITE NOT SPECIFIED Attending: THIAGO MILLIGAN Current LOS: 3 Anticipated DC Date: Planned Disposition: Primary Insurance: MEDICAID [place] Discharge Planning Comments: CM met with patient to complete initial dc planning assessment. CM educated patient on the CM role and verbal consent given by patient to complete assessment. Patient lives at home alone, states her nephew lives on the same property and helps her with needs. CM discussed availability of home health, rehab services, and medical equipment. I informed her that her insurance would not cover SNF. The only inpatient rehab that could possibly consider her is [facility] on [address]. She states she has been there before and would like a referral. She refuses assisted placement. States if [facility] cannot except, she would go home with resumption of [facility] home health. She does not have oxygen at home, would need a room air sat prior to discharge to assess for home oxygen needs. CM will continue to follow and will assist as needed with dc plans/needs. Game Technician: Chloe Marley DCPIA - Discharge Planning Initial Assessment Updated by [email or web address]: Chloe Marley on 04/25/20 10:47 am * Is the patient Alert and Oriented? Yes * How many steps to enter\exit or inside your home? RAMP/0 * PCP Dr. Beaulieu * Pharmacy [facility] in [place] * Preadmission Environment Home Alone * ADLs Partial Dependent * Partial ADLs (Assistance needed) Ambulation Bathing Dressing Medication Management Transfers * Equipment Other Walker * Other Equipment Motorized wheelchair * List name and contact numbers for known caregivers / representatives who currently or will assist patient after discharge: Jose sebastian - [phone] * Verbal permission to speak to the caregivers and representatives has been obtained from the patient. Yes * Community resources currently utilized Home Health * Please name any agencies selected above. [facility] home health * Additional services required to return to the preadmission environment? Yes * Can the patient safely return to the preadmission environment? No * Has this patient been hospitalized within the prior 30 days at any hospital? Yes External Providers [facility] Next Contact Date: Service Request Date: Service Type: Resolution: Reviewer: Comments: Coverage Notice Reviewer: [id number] - Chloe Orrell Notice Issued Date-Time: 04/25/2020 11:52 Notice Type: Patient Choice Letter Notice Delivered To: Patient Relationship to Patient: Self Seamless Tube Roller Name: Delivery Method: HAND - Hand Delivered Edel Days: Prior Verbal Notification: Recipient Understood Notice: Yes Recipient Signature: Yes Med Rec Note Co-signed by Attending: Coverage Notice Comment: TENISHA FOR [facility], [facility] DP export: 05/14/20 9:39 a Patient Name: RUCHI WOODS Page [id number] at 1455 All edits/amendments must be made on the electronic document DICTATION DATE: 05/15/20 1459 LEAD GENERATION MARKETING MANAGER: FOREST 05/15/20 1453 RPT#: [id number] DC DATE: STATUS: ADM IN [facility] [address] [place] [address] END OF REPORT
--- NOTE | 2020-05-15 15:03 | MORECARE ---
CASE MANAGEMENT DISCHARGE SUMMARY PATIENT: RUCHI WOODS UNIT: [id number] ADM DATE: 04/22/20 AGE: 64 : 57 SEX: F ROOM/BED: D.2115 AUTHOR: TYESHA,DOC PHYSICIAN: REFERRING PHYSICIAN: THIAGO MILLIGAN MD DATE OF SERVICE: 05/15/20 Discharge Plan Patient Name: RUCHI WOODS Facility: [facility]:[place] : 1955 Planned Disposition: Anticipated Discharge Date: Discharge Date: Expected LOS: Initial Reviewer: [email or web address] Initial Review Date: 04/25/2020 Generated: 05/15/20 4:02 pm Comments DCP- Discharge Planning Updated by [email or web address]: Chloe Marley on 05/14/20 9:[address] Patient is in isolation. I spoke with nephew, Jose, to review options for post acute care. I informed him at this time, she is not able to go home to take care of herself. I informed him of the nursing facilities in the area, including [facility]. He is going to [place] with patient [place]. CM will continue to follow and assist with discharge planning/needs. DCP- Discharge Planning Updated by [email or web address]: Carrie Emmanuel on 05/07/20 8:[address] CM was notified late morning to transfer patient to a facility that has neuro since patient is new onset of seizures. CM had called and spoke with powerhouse helper at [facility] and she will call CM back once room is available expecting discharges. CM was notified at 1530 not to transfer patient that Dr. Valderrama will come in this evening to see patient. CM will continue to follow and assist as needed with d/c needs. DCP- Discharge Planning Updated by [id number]: Denia Rod on 05/07/20 10:[address] CM received a call from Norma Banks, ([facility]) with place/day HD. HD: M/W/F @0720, [facility] ORD chair time 0720. Patient is to be at the facility @0700 for paperwork, bring a blanket, insurance card, ID, medication list. DCP- Discharge Planning Updated by [email or web address]: Chloe Marley on 05/06/20 4:[address] CM received a call from Norma Teri, states she is having difficulty with her insurance. I called Jose, nephew, and gave her Norma's number per her request. DCP- Discharge Planning Updated by [id number]: Chloe Marley on 05/01/20 2:[address] CM called Norma and left a message on her answering machine that I needed an OP dialysis chair set up for patient. CM will continue to follow and assist with discharge planning/needs. DCP- Discharge Planning Updated by [email or web address]: Chloe Marley on 05/01/20 12:[address] After 3rd call to [facility], I reached Nasra. Nasra states she is now down to 5 days of rehab and they would not be able to accept patient. I spoke with the patient about assistant terminal manager care. She does not want assistant terminal manager care, she would like to go home with [facility]. She is telling me she has changed her mind about dialysis and now would like to be started on dialysis. I notified Soumya and she is calling nephrology. I notified Jostin Beckwith APN. CM will continue to follow and assist with discharge planning/needs. DCP- Discharge Planning Updated by [id number]: Chloe Marley on 04/29/20 7:[address] Updated notes faxed to [facility]. DCP- Discharge Planning Updated by [id number]: Chloe Marley on 04/25/20 2:[address] I received a call from Irma with [facility] rehab. Irma states that she has enough available days that they can accept her if she is able to participate in therapy more. I spoke with the patient and encouraged her to work as much as she can with therapy. CM will continue to send therapy notes daily to [facility]. DCP- Discharge Planning Updated by [email or web address]: Chloe Marley on 04/25/20 10:[address] Clinical faxed to [facility] for review. CM will continue to follow and assist with discharge needs. DCP- Discharge Planning Updated by [id number]: Chloe Warddestinee on 04/25/20 10:[address] Patient Name: RUCHI WOODS Admission Status: ER Accout number: [id number] Admission Date: 04-22-2020 : 1955 Admission Diagnosis:URINARY TRACT INFECTION, SITE NOT SPECIFIED Attending: THIAGO MILLIGAN Current LOS: 3 Anticipated DC Date: Planned Disposition: Primary Insurance: MEDICAID [place] Discharge Planning Comments: CM met with patient to complete initial dc planning assessment. CM educated patient on the CM role and verbal consent given by patient to complete assessment. Patient lives at home alone, states her nephew lives on the same property and helps her with needs. CM discussed availability of home health, rehab services, and medical equipment. I informed her that her insurance would not cover SNF. The only inpatient rehab that could possibly consider her is [facility] on [address]. She states she has been there before and would like a referral. She [place]. States if [facility] cannot except, she would go home with resumption of [facility] home health. She does not have oxygen at home, would need a room air sat prior to discharge to assess for home oxygen needs. CM will continue to follow and will assist as needed with dc plans/needs. Metal Fitters And Machinists: Chloe Marley DCPIA - Discharge Planning Initial Assessment Updated by [id number]: Chloe Marley on 04/25/20 10:47 am * Is the patient Alert and Oriented? Yes * How many steps to enter\exit or inside your home? RAMP/0 * PCP Dr. Beaulieu * Pharmacy [facility] in [place] * Preadmission Environment Home Alone * ADLs Partial Dependent * Partial ADLs (Assistance needed) Ambulation Bathing Dressing Medication Management Transfers * Equipment Other Walker * Other Equipment Motorized wheelchair * List name and contact numbers for known caregivers / representatives who currently or will assist patient after discharge: Jose sebastian - [phone] * Verbal permission to speak to the caregivers and representatives has been obtained from the patient. Yes * Community resources currently utilized Home Health * Please name any agencies selected above. [facility] home health * Additional services required to return to the preadmission environment? Yes * Can the patient safely return to the preadmission environment? No * Has this patient been hospitalized within the prior 30 days at any hospital? Yes Coverage Notice Reviewer: [id number] - Chloe Marley Notice Issued Date-Time: 04/25/2020 11:52 Notice Type: Patient Choice Letter Notice Delivered To: Patient Relationship to Patient: Self Pilot Captain Name: Delivery Method: HAND - Hand Delivered Edel Days: Prior Verbal Notification: Recipient Understood Notice: Yes Recipient Signature: Yes Med Rec Note Co-signed by Attending: Coverage Notice Comment: TENISHA FOR [facility] Reviewer: [id number] Darrel Marley Notice Issued Date-Time: 05/15/2020 14:57 Notice Type: Patient Choice Letter Notice Delivered To: Family Member Relationship to Patient: Nephew Pilot Captain Name: JOSE DAVIS Delivery Method: PHONE - Phone Edel Days: Prior Verbal Notification: Recipient Understood Notice: Yes Recipient Signature: Med Rec Note Co-signed by Attending: Coverage Notice Comment: TENISHA FOR KRISTOPHER Jade DP export: 05/15/20 1:55 p Patient Name: RUCHI WOODS Page 90843 at 1503 All edits/amendments must be made on the electronic document DICTATION DATE: 05/15/201501 PRINCIPAL CYBER ENGINEER: FOREST 05/15/20 150 RPT#: [id number] DC DATE: STATUS: ADM IN [facility] [address] [place] [address] END OF REPORT
--- NOTE | 2020-05-15 15:25 | MORECARE ---
CASE MANAGEMENT DISCHARGE SUMMARY PATIENT: RUCHI WOODS UNIT: [id number] ADM DATE: 04/22/20 AGE: 64 : 57 SEX: F ROOM/BED: D.6195 AUTHOR: TYESHADOC PHYSICIAN: REFERRING PHYSICIAN: THIAGO MILLIGAN MD DATE OF SERVICE: 05/15/20 Discharge Plan Patient Name: RUCHI WOODS Facility: [facility]:[place] : 1955 Planned Disposition: Anticipated Discharge Date: Discharge Date: Expected LOS: Initial Reviewer: [email or web address] Initial Review Date: 04/25/2020 Generated: 05/15/20 4:25 pm Comments DCP- Discharge Planning Updated by [email or web address]: Chloe Wadrdestinee on 05/15/20 2:[address] I spoke with nephew at length today to discuss LTC placement vs Hospice. He is undecided and asks me to speak with patient. I attempted to call patient without an answer. I went to the room and spoke with patient and she understands that she will need to go to a custodial, but is not ready to make the decision. I called nephew back and informed him of this and he chooses [facility] for a referral. I called [facility] and spoke with Amelia and clinical faxed. CM will continue to follow and assist with discharge planning/needs. DCP- Discharge Planning Updated by [id number]: Chloe Warddestinee on 05/14/20 9:[address] Patient is in isolation. I spoke with nephew, Jose, to review options for post acute care. I informed him at this time, she is not able to go home to take care of herself. I informed him of the nursing facilities in the area, including [facility]. He is going to discuss with patient about custodial vs custodial with hospice. CM will continue to follow and assist with discharge planning/needs. DCP- Discharge Planning Updated by [id number]: Carrie Emmanuel on 05/07/20 8:[address] CM was notified late morning to transfer patient to a facility that has neuro since patient is new onset of seizures. CM had called and spoke with tobacco warehouse agent at [facility] and she will call CM back once room is available expecting discharges. CM was notified at 1530 not to transfer patient that Dr. Valderrama will come in this evening to see patient. CM will continue to follow and assist as needed with d/c needs. DCP- Discharge Planning Updated by [email or web address]: Denia Rod on 05/07/20 10:[address] CM received a call from Norma Banks, ([facility]) with place/day HD. HD: M/W/F @0720, [facility] ORDC chair time 0720. Patient is to be at the facility @0700 for paperwork, bring a blanket, insurance card, ID, medication list. DCP- Discharge Planning Updated by [email or web address]: Chloe Ayaka on 05/06/20 4:[address] CM received a call from Norma Williamson, states she is having difficulty with her insurance. I called Jose, nephew, and gave her Norma's number per her request. DCP- Discharge Planning Updated by [id number]: Chloe Marley on 05/01/20 2:[address] CM called Norma and left a message on her answering machine that I needed an OP dialysis chair set up for patient. CM will continue to follow and assist with discharge planning/needs. DCP- Discharge Planning Updated by [id number]: Chloe Ayaka on 05/01/20 12:[address] After 3rd call to [facility], I reached Nasra. Nasra states she is now down to 5 days of rehab and they would not be able to accept patient. I spoke with the patient about truck terminal manager care. She does not want truck terminal manager care, she would like to go home with [facility]. She is telling me she has changed her mind about dialysis and now would like to be started on dialysis. I notified Soumya and she is calling nephrology. I notified Jostin Beckwith APN. CM will continue to follow and assist with discharge planning/needs. DCP- Discharge Planning Updated by [id number]: Chloe Ayaka on 04/29/20 7:[address] Updated notes faxed to [facility]. DCP- Discharge Planning Updated by [id number]: Chloe Marley on 04/25/20 2:[address] I received a call from Irma with [facility] rehab. Irma states that she has enough available days that they can accept her if she is able to participate in therapy more. I spoke with the patient and encouraged her to work as much as she can with therapy. CM will continue to send therapy notes daily to [facility]. DCP- Discharge Planning Updated by [id number]: Chloe Marley on 04/25/20 10:[address] Clinical faxed to [facility] for review. CM will continue to follow and assist with discharge needs. DCP- Discharge Planning Updated by [email or web address]: Chloe Marley on 04/25/20 10:[address] Patient Name: RUCHI WOODS Admission Status: ER Accout number: [id number] Admission Date: 04-22-2020 : 1955 Admission Diagnosis:URINARY TRACT INFECTION, SITE NOT SPECIFIED Attending: THIAGO MILLIGAN Current LOS: 3 Anticipated DC Date: Planned Disposition: Primary Insurance: MEDICAID [place] Discharge Planning Comments: CM met with patient to complete initial dc planning assessment. CM educated patient on the CM role and verbal consent given by patient to complete assessment. Patient lives at home alone, states her nephew lives on the same property and helps her with needs. CM discussed availability of home health, rehab services, and medical equipment. I informed her that her insurance would not cover SNF. The only inpatient rehab that could possibly consider her is [facility]. She states she has been there before and would like a referral. She refuses custodial placement. States if [facility] cannot except, she would go home with resumption of [facility] health. She does not have oxygen at home, would need a room air sat prior to discharge to assess for home oxygen needs. CM will continue to follow and will assist as needed with dc plans/needs. Rat Breeder: Chloe Marley DCPIA - Discharge Planning Initial Assessment Updated by [id number]: Chloe Marley on 04/25/20 10:47 am * Is the patient Alert and Oriented? Yes * How many steps to enter\exit or inside your home? RAMP/0 * PCP Dr. Beaulieu * Pharmacy [place] in [place] * Preadmission Environment Home Alone * ADLs Partial Dependent * Partial ADLs (Assistance needed) Ambulation Bathing Dressing Medication Management Transfers * Equipment Other Walker * Other Equipment Motorized wheelchair * List name and contact numbers for known caregivers / representatives who currently or will assist patient after discharge: Jose sebastian - [phone] * Verbal permission to speak to the caregivers and representatives has been obtained from the patient. Yes * Community resources currently utilized Home Health * Please name any agencies selected above. [facility] home health * Additional services required to return to the preadmission environment? Yes * Can the patient safely return to the preadmission environment? No * Has this patient been hospitalized within the prior 30 days at any hospital? Yes Coverage Notice Reviewer: [id number] Marley Notice Issued Date-Time: 04/25/2020 11:52 Notice Type: Patient Choice Letter Notice Delivered To: Patient Relationship to Patient: Self Visitor Services Assistant Name: Delivery Method: HAND - Hand Delivered Edel Days: Prior Verbal Notification: Recipient Understood Notice: Yes Recipient Signature: Yes Med Rec Note Co-signed by Attending: Coverage Notice Comment: TENISHA FOR [facility] Reviewer: [email or web address] Darrel Marley Notice Issued Date-Time: 05/15/2020 14:57 Notice Type: Patient Choice Letter Notice Delivered To: Family Member Relationship to Patient: Nephew Visitor Services Assistant Name: JOSE DAVIS Delivery Method: PHONE - Phone Edel Days: Prior Verbal Notification: Recipient Understood Notice: Yes Recipient Signature: Med Rec Note Co-signed by Attending: Coverage Notice Comment: TENISHA FOR KRISTOPHER Jade DP export: 05/15/20 2:03 p Patient Name: RUCHI WOODS Page [id number] at 1525 All edits/amendments must be made on the electronic document DICTATION DATE: 05/15/20 152 SECURITY SOFTWARE ENGINEER: FOREST 05/15/20 1525 RPT#: [id number] DC DATE: STATUS: ADM IN [facility] [address] [place] [address] END OF REPORT
[2020-05-15 16:16] VITALS: BP 113/71
[2020-05-15 20:00] VITALS: BP 119/71
[2020-05-16 04:00] VITALS: BP 140/71
[2020-05-16 06:20] LABS: ANION GAP 12.8 mmol/L (8-16); BILIRUBIN - TOTAL 0.55 mg/dL (0.2-1.3); CALCIUM 8.4 mg/dL (8.5-10.1); CARBON DIOXIDE 25.7 mmol/L (21.0-32.0); CREATININE - SERUM 2.8 mg/dL (0.6-1.3); GENTAMICIN - RANDOM 1.5 ug/mL (0.5-2.0); POTASSIUM - SERUM 3.5 mmol/L (3.5-5.1); PROTEIN - SERUM 5.9 g/dL (6.4-8.2)
[2020-05-16 06:32] LABS: BASOPHILS 0.2 % (0-2); EOSINOPHILS 1.9 % (0-7); HEMATOCRIT 25.1 % (36.0-48.0); HEMOGLOBIN 8.1 g/dL (12-16); IMMATURE GRANULOCYTES 0.4 % (0-5); LYMPHOCYTES 29.5 % (15-50); MCH 27.9 pg (26.0-34.0); MCHC 32.3 g/dL (31.0-37.0); MCV 86.6 fL (80.0-100.0); MEAN PLATELET VOLUME 9.6 fL (7.4-10.4); MONOCYTES 6.4 % (2-11); NEUTROPHILS 61.6 % (40-80); PLATELET COUNT 103 10x3/uL (130-400); RDW 14.9 % (11.5-14.5); WBC 5.3 10x3/uL (4.8-10.8)
--- NOTE | 2020-05-16 08:11 | NUR ---
PATIENT IS RESTING THIS AM, PATIENT KNOWS SHE IS IN HOSPITAL, BUT DOES NOT KNOW THE DATE / TIME / PRESIDENT. PLAN OF CARE REVIEWED AND ASSESSMENT HAS BEEN COMPLETED. PATIENT DENIES PAIN, NO S/S OF PAIN ON PATIENT'S FACE. CALL LIGHT IN REACH. WOUND CARE NURSE VISITS WITH NURSE TODAY AND BRINGS SUPPLIES TO CHANGE BEDDING UNDER PATIENT OUT. NURSE VERBS UNDERSTANDING OF USE.
[2020-05-16 08:44] LABS: INR 1.21 (0.85-1.17); PROTIME 15.2 SECONDS (11.6-15.0)
[2020-05-16 08:45] LABS: APTT 45.5 SECONDS (22.8-39.4)
[2020-05-16 10:17] VITALS: BP 126/68
--- NOTE | 2020-05-16 10:42 | NUR ---
PATIENT VOMITS ALMOST IMMEDIATELY WHEN TAKING PO MEDS. PATIENT DOES NOT TOLERATE MEDS. PATIENT HAS IV PIGGYBACK OF KEPPRA HANGING AT THIS TIME. NURSE TO CHANGE BEDDING AND GOWN. CALL LIGHT IN REACH
--- NOTE | 2020-05-16 11:40 | MORECARE ---
CASE MANAGEMENT DISCHARGE SUMMARY PATIENT: RUCHI WOODS UNIT: [id number] ADM DATE: 04/22/20 AGE: 64 : 57 SEX: F ROOM/BED: D.1215 AUTHOR: TYESHADOC PHYSICIAN: REFERRING PHYSICIAN: THIAGO MILLIGAN MD DATE OF SERVICE: 05/16/20 Discharge Plan Patient Name: RUCHI WOODS Facility: [facility]:[place] : 1955 Planned Disposition: Anticipated Discharge Date: Discharge Date: Expected LOS: Initial Reviewer: [id number] Initial Review Date: 04/25/2020 Generated: 05/16/20 12:39 pm Comments DCP- Discharge Planning Updated by [id number]: Denia Rod on 05/16/20 10:[address] CM contacted [facility], spoke with Amelia, who states the facility cannot provide transportation for dialysis appointments. CM made Jostin JONES aware of same. Patient's nephew, Jose ([phone]). DCP- Discharge Planning Updated by [id number]: Chloe Marley on 05/15/20 2:[address] I spoke with nephew at length today to discuss LTC placement vs Hospice. He is undecided and asks me to speak with patient. I attempted to call patient without an answer. I went to the room and spoke with patient and she understands that she will need to go to a long term, but is not ready to make the decision. I called nephew back and informed him of this and he chooses [facility] for a referral. I called [facility] and spoke with Amelia and clinical faxed. CM will continue to follow and assist with discharge planning/needs. DCP- Discharge Planning Updated by [id number]: Chloe Marley on 05/14/20 9:[address] Patient is in isolation. I spoke with nephew, Jose, to review options for post acute care. I informed him at this time, she is not able to go home to take care of herself. I informed him of the nursing facilities in the area, including [facility]. He is going to discuss with patient about long term vs long term with hospice. CM will continue to follow and assist with discharge planning/needs. DCP- Discharge Planning Updated by [id number]: Carrie Emmanuel on 05/07/20 8:[address] CM was notified late morning to transfer patient to a facility that has neuro since patient is new onset of seizures. CM had called and spoke with warehouse worker 2nd shift at [facility] and she will call CM back once room is available expecting discharges. CM was notified at 1530 not to transfer patient that Dr. Valderrama will come in this evening to see patient. CM will continue to follow and assist as needed with d/c needs. DCP- Discharge Planning Updated by [id number]: Denia aMrcel on 05/07/20 10:[address] CM received a call from Norma Banks, ([facility]) with place/day HD. HD: M/W/F @0720, [facility] ORDC chair time 0720. Patient is to be at the facility @0700 for paperwork, bring a blanket, insurance card, ID, medication list. DCP- Discharge Planning Updated by [id number]: Chloe Warddestinee on 05/06/20 4:[address] CM received a call from Norma Williamson, states she is having difficulty with her insurance. I called Jose, nephew, and gave her Norma's number per her request. DCP- Discharge Planning Updated by [id number]: Chloe Marley on 05/01/20 2:[address] CM called Norma and left a message on her answering machine that I needed an OP dialysis chair set up for patient. CM will continue to follow and assist with discharge planning/needs. DCP- Discharge Planning Updated by [email or web address]: Chloe Marley on 05/01/20 12:[address] After 3rd call to [facility], I reached Nasra. Nasra states she is now down to 5 days of rehab and they would not be able to accept patient. I spoke with the patient about longwall shearer operator care. She does not want longwall shearer operator care, she would like to go home with [facility]. She is telling me she has changed her mind about dialysis and now would like to be started on dialysis. I notified Soumya and she is calling nephrology. I notified Jostin Beckwith APN. CM will continue to follow and assist with discharge planning/needs. DCP- Discharge Planning Updated by [email or web address]: Chloe Warddestinee on 04/29/20 7:[address] Updated notes faxed to [facility]. DCP- Discharge Planning Updated by [email or web address]: Chloe Marley on 04/25/20 2:[address] I received a call from Irma with [facility] rehab. Irma states that she has enough available days that they can accept her if she is able to participate in therapy more. I spoke with the patient and encouraged her to work as much as she can with therapy. CM will continue to send therapy notes daily to [facility]. DCP- Discharge Planning Updated by [email or web address]: Chloe Marley on 04/25/20 10:[address] Clinical faxed to [facility] for review. CM will continue to follow and assist with discharge needs. DCP- Discharge Planning Updated by [id number]: Chloe Ayaka on 04/25/20 10:[address] Patient Name: RUCHI WOODS Admission Status: ER Accout number: [id number] Admission Date: 04-22-2020 : 1955 Admission Diagnosis:URINARY TRACT INFECTION, SITE NOT SPECIFIED Attending: THIAGO MILLIGAN Current LOS: 3 Anticipated DC Date: Planned Disposition: Primary Insurance: MEDICAID [place] Discharge Planning Comments: CM met with patient to complete initial dc planning assessment. CM educated patient on the CM role and verbal consent given by patient to complete assessment. Patient lives at home alone, states her nephew lives on the same property and helps her with needs. CM discussed availability of home health, rehab services, and medical equipment. I informed her that her insurance would not cover SNF. The only inpatient rehab that could possibly consider her is [facility] on [facility]. She states she has been there before and would like a referral. She refuses long term placement. States if [facility] cannot except, she would go home with resumption of [facility] health. She does not have oxygen at home, would need a room air sat prior to discharge to assess for home oxygen needs. CM will continue to follow and will assist as needed with dc plans/needs. Home Specialist: Chloe Marley DCPIA - Discharge Planning Initial Assessment Updated by [id number]: Chloe Marley on 04/25/20 10:47 am * Is the patient Alert and Oriented? Yes * How many steps to enter\exit or inside your home? RAMP/0 * PCP Dr. Beaulieu * Pharmacy [facility] in [place] * Preadmission Environment Home Alone * ADLs Partial Dependent * Partial ADLs (Assistance needed) Ambulation Bathing Dressing Medication Management Transfers * Equipment Other Walker * Other Equipment Motorized wheelchair * List name and contact numbers for known caregivers / representatives who currently or will assist patient after discharge: Jose sebastian - [phone] * Verbal permission to speak to the caregivers and representatives has been obtained from the patient. Yes * Community resources currently utilized Home Health * Please name any agencies selected above. [facility] home health * Additional services required to return to the preadmission environment? Yes * Can the patient safely return to the preadmission environment? No * Has this patient been hospitalized within the prior 30 days at any hospital? Yes Coverage Notice Reviewer: [id number] Darrel Marley Notice Issued Date-Time: 04/25/2020 11:52 Notice Type: Patient Choice Letter Notice Delivered To: Patient Relationship to Patient: Self Hob Grinder Name: Delivery Method: HAND - Hand Delivered Edel Days: Prior Verbal Notification: Recipient Understood Notice: Yes Recipient Signature: Yes Med Rec Note Co-signed by Attending: Coverage Notice Comment: TENISHA FOR [facility] Reviewer: [email or web address] Darrel Marley Notice Issued Date-Time: 05/15/2020 14:57 Notice Type: Patient Choice Letter Notice Delivered To: Family Member Relationship to Patient: Nephew Hob Grinder Name: JOSE DAVIS Delivery Method: PHONE - Phone Edel Days: Prior Verbal Notification: Recipient Understood Notice: Yes Recipient Signature: Med Rec Note Co-signed by Attending: Coverage Notice Comment: TENISHA FOR KRISTOPHER Jade DP export: 05/15/20 2:25 p Patient Name: RUCHI WOODS Page [id number] at 1140 All edits/amendments must be made on the electronic document DICTATION DATE: 05/16/20 1139 PIPED POCKET MACHINE OPERATOR: FOREST 05/16/20 1139 RPT#: [id number] DC DATE: STATUS: ADM IN [facility] [address] [place] [address] END OF REPORT
--- NOTE | 2020-05-16 12:36 | NUR ---
PATIENT REFUSES PO MEDS. SHE CANT TAKE THEM OR SHE WILL GET SICK. NURSE VERBS UNDERSTANDING. CALL LIGHT IN REACH
--- NOTE | 2020-05-16 12:40 | NUR ---
Nutrition Follow-up: NPO for paracentesis. Noted pt still with N/V; not tolerating PO meds. GI recs feeding tube if pt does not want comfort care/hospice; pt still considering PEG. Procal @ 30 mL/hr (provides 176 kcal & 22 g protein daily). Wt: 231# (05/16) Labs noted: K+ 3.5, Ca 8.4, Alb 3.0 Meds noted: Calcitriol, Carafate, Neutra-Phos, Protonix, Bumex, Colace, NS @ KVO, folic acid, electrolyte protocol -Procal not meeting nutritional needs and pt has been unable to tolerate PO intake. Agree with feeding tube placement if pt amenable. -RD following.
--- NOTE | 2020-05-16 13:10 | MORECARE ---
CASE MANAGEMENT DISCHARGE SUMMARY PATIENT: RUCHI WOODS UNIT: [id number] ADM DATE: 04/22/20 AGE: 64 : 57 SEX: F ROOM/BED: D.1512 AUTHOR: JOSE ARAMBULA PHYSICIAN: REFERRING PHYSICIAN: THIAGO MILLIGAN MD DATE OF SERVICE: 05/16/20 Discharge Plan Patient Name: RUCHI WOODS Facility: [facility]:[place] : 1955 Planned Disposition: Anticipated Discharge Date: Discharge Date: Expected LOS: Initial Reviewer: [email or web address] Initial Review Date: 04/25/2020 Generated: 05/16/20 2:09 pm Comments DCP- Discharge Planning Updated by [email or web address]: Denia Rod on 05/16/20 12:[address] 1300: Jose Barakat, nephew of patient, called back and states he has discussed the patient's choices of NH with Hospice and NH and continue with HD. Per Jose, the patient stated to him " Well I better get off my ass and try to work with PT and start eating". Jose would like to know how the patient participates with PT, see if she makes an honest effort, then it will help him make a decision about patient's discharge plan. Jose states he will not make a decision without the patient, due to patient and helping him in the past. 1145: CM contacted patient's nephew, Brian "Emmanuel Barakat ([phone]), regarding [facility] not accepting patient to their facility. Nephew states "Good, I didn't want her to go there anyway". Jostin JONES also spoke with Jose regarding DC choices. Mr. Barakat states he will CB after he speaks to Mrs. Woods. Mr. Barakat states he is patient's POA, but there was never any paperwork to make it official. Mr. Barakat is at work and will CB later. CM contacted [facility], spoke with Amelia, who states the facility cannot provide transportation for dialysis appointments. PAULETTE made Jostin JONES aware of same. Patient's nephew, Jose ([phone]). DCP- Discharge Planning Updated by [id number]: Chloe Marley on 05/15/20 2:[address] I spoke with nephew at length today to discuss LTC placement vs Hospice. He is undecided and asks me to speak with patient. I attempted to call patient without an answer. I went to the room and spoke with patient and she understands that she will need to go to a skilled nursing, but is not ready to make the decision. I called nephew back and informed him of this and he chooses [facility] for a referral. I called [facility] and spoke with Amelia and clinical faxed. CM will continue to follow and assist with discharge planning/needs. DCP- Discharge Planning Updated by [id number]: Chloe Marley on 05/14/20 9:[address] Patient is in isolation. I spoke with nephew, Jose, to review options for post acute care. I informed him at this time, she is not able to go home to take care of herself. I informed him of the nursing facilities in the area, including [facility]. He is going to discuss with patient about skilled nursing vs skilled nursing with hospice. CM will continue to follow and assist with discharge planning/needs. DCP- Discharge Planning Updated by [id number]: Carrie Emmanuel on 05/07/20 8:[address] CM was notified late morning to transfer patient to a facility that has neuro since patient is new onset of seizures. CM had called and spoke with warehouse helper at [facility] and she will call CM back once room is available expecting discharges. CM was notified at 1530 not to transfer patient that Dr. Valderrama will come in this evening to see patient. CM will continue to follow and assist as needed with d/c needs. DCP- Discharge Planning Updated by [email or web address]: Denia Rod on 05/07/20 10:[address] CM received a call from Norma Banks, ([facility]) with place/day HD. HD: M/W/F @0720, [facility] ORD chair time 0720. Patient is to be at the facility @0700 for paperwork, bring a blanket, insurance card, ID, medication list. DCP- Discharge Planning Updated by [email or web address]: Chloe Warddestinee on 05/06/20 4:[address] CM received a call from Norma Williamson, states she is having difficulty with her insurance. I called Jose, nephew, and gave her Norma's number per her request. DCP- Discharge Planning Updated by [id number]: Chloe Marley on 05/01/20 2:[address] CM called Norma and left a message on her answering machine that I needed an OP dialysis chair set up for patient. CM will continue to follow and assist with discharge planning/needs. DCP- Discharge Planning Updated by [id number]: Chloe Marley on 05/01/20 12:[address] After 3rd call to [facility], I reached Nasra. Nasra states she is now down to 5 days of rehab and they would not be able to accept patient. I spoke with the patient about intermediate care. She does not want production helper care, she would like to go home with [facility]. She is telling me she has changed her mind about dialysis and now would like to be started on dialysis. I notified Soumya and she is calling nephrology. I notified Jostin Beckwith APN. CM will continue to follow and assist with discharge planning/needs. DCP- Discharge Planning Updated by [id number]: Chloe Warddestinee on 04/29/20 7:[address] Updated notes faxed to [facility]. DCP- Discharge Planning Updated by [email or web address]: Chloe Marley on 04/25/20 2:[address] I received a call from Irma with [facility] rehab. Irma states that she has enough available days that they can accept her if she is able to participate in therapy more. I spoke with the patient and encouraged her to work as much as she can with therapy. CM will continue to send therapy notes daily to [facility]. DCP- Discharge Planning Updated by [id number]: Chloe Warddestinee on 04/25/20 10:[address] Clinical faxed to [facility] for review. CM will continue to follow and assist with discharge needs. DCP- Discharge Planning Updated by [id number]: Chloe Ayaka on 04/25/20 10:[address] Patient Name: RUCHI WOODS Admission Status: ER Accout number: [id number] Admission Date: 04-22-2020 : 1955 Admission Diagnosis:URINARY TRACT INFECTION, SITE NOT SPECIFIED Attending: THIAGO MILLIGAN Current LOS: 3 Anticipated DC Date: Planned Disposition: Primary Insurance: MEDICAID [place] Discharge Planning Comments: CM met with patient to complete initial dc planning assessment. CM educated patient on the CM role and verbal consent given by patient to complete assessment. Patient lives at home alone, states her nephew lives on the same property and helps her with needs. CM discussed availability of home health, rehab services, and medical equipment. I informed her that her insurance would not cover SNF. The only inpatient rehab that could possibly consider her is [facility] on [address]. She states she has been there before and would like a referral. She refuses skilled nursing placement. States if [facility] cannot except, she would go home with resumption of [facility] home health. She does not have oxygen at home, would need a room air sat prior to discharge to assess for home oxygen needs. CM will continue to follow and will assist as needed with dc plans/needs. Screen Maker: Chloe Marley DCPIA - Discharge Planning Initial Assessment Updated by [id number]: Chloe Marley on 04/25/20 10:47 am * Is the patient Alert and Oriented? Yes * How many steps to enter\\exit or inside your home? RAMP/0 * PCP Dr. Beaulieu * Pharmacy [facility] in [place] * Preadmission Environment Home Alone * ADLs Partial Dependent * Partial ADLs (Assistance needed) Ambulation Bathing Dressing Medication Management Transfers * Equipment Other Walker * Other Equipment Motorized wheelchair * List name and contact numbers for known caregivers / representatives who currently or will assist patient after discharge: Jose sebastian - [phone] * Verbal permission to speak to the caregivers and representatives has been obtained from the patient. Yes * Community resources currently utilized Home Health * Please name any agencies selected above. [facility] home health * Additional services required to return to the preadmission environment? Yes * Can the patient safely return to the preadmission environment? No * Has this patient been hospitalized within the prior 30 days at any hospital? Yes Coverage Notice Reviewer: [id number] - Chloe Marley Notice Issued Date-Time: 04/25/2020 11:52 Notice Type: Patient Choice Letter Notice Delivered To: Patient Relationship to Patient: Self Restaurant Area Manager Name: Delivery Method: HAND - Hand Delivered Edel Days: Prior Verbal Notification: Recipient Understood Notice: Yes Recipient Signature: Yes Med Rec Note Co-signed by Attending: Coverage Notice Comment: TENISHA FOR [facility] Reviewer: [email or web address] Darrel Marley Notice Issued Date-Time: 05/15/2020 14:57 Notice Type: Patient Choice Letter Notice Delivered To: Family Member Relationship to Patient: Nephew Restaurant Area Manager Name: JOSE BARAKAT Delivery Method: PHONE - Phone Edel Days: Prior Verbal Notification: Recipient Understood Notice: Yes Recipient Signature: Med Rec Note Co-signed by Attending: Coverage Notice Comment: TENISHA FOR KRISTOPHER Jade DP export: 05/16/20 10:40 a Patient Name: RUCHI WOODS Page [id number] at 1310 All edits/amendments must be made on the electronic document DICTATION DATE: 05/16/20 1310 KEYBOARD SPECIALIST: FOREST 05/16/20 1310 RPT#: [id number] DC DATE: STATUS: ADM IN [facility] [address] [place] [address] END OF REPORT
[2020-05-16 16:59] VITALS: BP 108/61
--- NOTE | 2020-05-16 17:24 | MORECARE ---
CASE MANAGEMENT DISCHARGE SUMMARY PATIENT: RUCHI WOODS UNIT: [id number] ADM DATE: 04/22/20 AGE: 64 : 57 SEX: F ROOM/BED: D.2275 AUTHOR: TYESHADOC PHYSICIAN: REFERRING PHYSICIAN: THIAGO MILLIGAN MD DATE OF SERVICE: 05/16/20 Discharge Plan Patient Name: RUCHI WOODS Facility: [facility]:[place] : 1955 Planned Disposition: Anticipated Discharge Date: Discharge Date: Expected LOS: Initial Reviewer: [email or web address] Initial Review Date: 04/25/2020 Generated: 05/16/20 6:23 pm Comments DCP- Discharge Planning Updated by [email or web address]: Denia Rod on 05/16/20 4:[address] 1700: Patient's nephew, Jose Barakat request that information be sent to [facility], attn: Ambika. Jose states he is still undecided about patient's DC plan. 1300: Jose Barakat, nephew of patient, called back and states he has discussed the patient's choices of NH with Hospice and NH and continue with HD. Per Jose, the patient stated to him " Well I better get off my ass and try to work with PT and start eating". Jose would like to know how the patient participates with PT, see if she makes an honest effort, then it will help him make a decision about patient's discharge plan. Jose states he will not make a decision without the patient, due to patient and helping him in the past. 1145: PAULETTE contacted patient's nephew, Brian "Emmanuel Barakat ([phone]), regarding [facility] not accepting patient to their facility. Nephew states "Good, I didn't want her to go there anyway". Jostin JONES also spoke with Jose regarding DC choices. Mr. Barakat states he will CB after he speaks to Mrs. Woods. Mr. Barakat states he is patient's POA, but there was never any paperwork to make it official. Mr. Barakat is at work and will CB later. PAULETTE contacted [facility], spoke with Amelia, who states the facility cannot provide transportation for dialysis appointments. PAULETTE made Jostin JONES aware of same. Patient's nephew, Jose ([phone]). DCP- Discharge Planning Updated by [id number]: Chloe Marley on 05/15/20 2:[address] I spoke with nephew at length today to discuss LTC placement vs Hospice. He is undecided and asks me to speak with patient. I attempted to call patient without an answer. I went to the room and spoke with patient and she understands that she will need to go to a intermediate, but is not ready to make the decision. I called nephew back and informed him of this and he chooses [facility] for a referral. I called [facility] and spoke with Amelia and clinical faxed. CM will continue to follow and assist with discharge planning/needs. DCP- Discharge Planning Updated by [id number]: Chloe Marley on 05/14/20 9:[address] Patient is in isolation. I spoke with nephew, Jose, to review options for post acute care. I informed him at this time, she is not able to go home to take care of herself. I informed him of the nursing facilities in the area, including [facility]. He is going to discuss with patient about intermediate vs intermediate with hospice. CM will continue to follow and assist with discharge planning/needs. DCP- Discharge Planning Updated by [id number]: Carrie Emmanuel on 05/07/20 8:[address] CM was notified late morning to transfer patient to a facility that has neuro since patient is new onset of seizures. CM had called and spoke with housekeeper caregiver at [facility] and she will call CM back once room is available expecting discharges. CM was notified at 1530 not to transfer patient that Dr. Valderrama will come in this evening to see patient. CM will continue to follow and assist as needed with d/c needs. DCP- Discharge Planning Updated by [email or web address]: Denia Rod on 05/07/20 10:[address] CM received a call from Norma Banks, (Johann) with place/day HD. HD: M/W/F @0720, [facility] chair time 0720. Patient is to be at the facility @0700 for paperwork, bring a blanket, insurance card, ID, medication list. DCP- Discharge Planning Updated by [id number]: Chloe Marley on 05/06/20 4:[address] CM received a call from Norma Williamson, states she is having difficulty with her insurance. I called Jose, nephew, and gave her Norma's number per her request. DCP- Discharge Planning Updated by [id number]: Chloe Marley on 05/01/20 2:[address] CM called Norma and left a message on her answering machine that I needed an OP dialysis chair set up for patient. CM will continue to follow and assist with discharge planning/needs. DCP- Discharge Planning Updated by [id number]: Chloe Marley on 05/01/20 12:[address] After 3rd call to [facility], I reached Nasra. Nasra states she is now down to 5 days of rehab and they would not be able to accept patient. I spoke with the patient about fdc care. She does not want terminal superintendent care, she would like to go home with [facility]. She is telling me she has changed her mind about dialysis and now would like to be started on dialysis. I notified Soumya and she is calling nephrology. I notified Jostin Beckwith APN. CM will continue to follow and assist with discharge planning/needs. DCP- Discharge Planning Updated by [id number]: Chloe Marley on 04/29/20 7:[address] Updated notes faxed to [facility]. DCP- Discharge Planning Updated by [id number]: Chloe Marley on 04/25/20 2:[address] I received a call from Irma with [facility] rehab. Irma states that she has enough available days that they can accept her if she is able to participate in therapy more. I spoke with the patient and encouraged her to work as much as she can with therapy. CM will continue to send therapy notes daily to [facility]. DCP- Discharge Planning Updated by [id number]: Chleo Warddestinee on 04/25/20 10:[address] Clinical faxed to [facility] for review. CM will continue to follow and assist with discharge needs. DCP- Discharge Planning Updated by [email or web address]: Chloe Warddestinee on 04/25/20 10:[address] Patient Name: RUCHI WOODS Admission Status: ER Accout number: [id number] Admission Date: 04-22-2020 : 1955 Admission Diagnosis:URINARY TRACT INFECTION, SITE NOT SPECIFIED Attending: THIAGO MILLIGAN Current LOS: 3 Anticipated DC Date: Planned Disposition: Primary Insurance: MEDICAID [place] Discharge Planning Comments: CM met with patient to complete initial dc planning assessment. CM educated patient on the CM role and verbal consent given by patient to complete assessment. Patient lives at home alone, states her nephew lives on the same property and helps her with needs. CM discussed availability of home health, rehab services, and medical equipment. I informed her that her insurance would not cover SNF. The only inpatient rehab that could possibly consider her is [facility] on [address]. She states she has been there before and would like a referral. She refuses intermediate placement. States if [facility] cannot except, she would go home with resumption of [facility] home health. She does not have oxygen at home, would need a room air sat prior to discharge to assess for home oxygen needs. CM will continue to follow and will assist as needed with dc plans/needs. Acid Correction Hand: Chloe Marley DCPIA - Discharge Planning Initial Assessment Updated by [id number]: Chloe Marley on 04/25/20 10:47 am * Is the patient Alert and Oriented? Yes * How many steps to enter\\exit or inside your home? RAMP/0 * PCP Dr. Beaulieu * Pharmacy [facility] in [place] * Preadmission Environment Home Alone * ADLs Partial Dependent * Partial ADLs (Assistance needed) Ambulation Bathing Dressing Medication Management Transfers * Equipment Other Walker * Other Equipment Motorized wheelchair * List name and contact numbers for known caregivers / representatives who currently or will assist patient after discharge: Jose sebastian - [phone] * Verbal permission to speak to the caregivers and representatives has been obtained from the patient. Yes * Community resources currently utilized Home Health * Please name any agencies selected above. [facility] home health * Additional services required to return to the preadmission environment? Yes * Can the patient safely return to the preadmission environment? No * Has this patient been hospitalized within the prior 30 days at any hospital? Yes External Providers External Provider: [facility](provides inp Next Contact Date: Service Request Date: Service Type: Resolution: Reviewer: Comments: Coverage Notice Reviewer: [id number] Darrel Marley Notice Issued Date-Time: 04/25/2020 11:52 Notice Type: Patient Choice Letter Notice Delivered To: Patient Relationship to Patient: Self Edge Stainer Name: Delivery Method: HAND - Hand Delivered Edel Days: Prior Verbal Notification: Recipient Understood Notice: Yes Recipient Signature: Yes Med Rec Note Co-signed by Attending: Coverage Notice Comment: TENISHA FOR [facility] Reviewer: [id number] Darrel Marley Notice Issued Date-Time: 05/15/2020 14:57 Notice Type: Patient Choice Letter Notice Delivered To: Family Member Relationship to Patient: Nephew Edge Stainer Name: JOSE BARAKAT Delivery Method: PHONE - Phone Edel Days: Prior Verbal Notification: Recipient Understood Notice: Yes Recipient Signature: Med Rec Note Co-signed by Attending: Coverage Notice Comment: TENISHA FOR [facility] Jade DP export: 05/16/20 12:10 p Patient Name: RUCHI WOODS Page 17080 at 1724 All edits/amendments must be made on the electronic document DICTATION DATE: 05/16/201722 MERCURY RECOVERER: FOREST 05/16/201722 RPT#: [id number] [place] DATE: STATUS: ADM IN [facility] [address] [place] [address] END OF REPORT
--- NOTE | 2020-05-16 17:32 | MORECARE ---
CASE MANAGEMENT DISCHARGE SUMMARY PATIENT: RUCHI WOODS UNIT: [id number] ADM DATE: 04/22/20 AGE: 64 : 57 SEX: F ROOM/BED: D.5739 AUTHOR: TYESHADOC PHYSICIAN: REFERRING PHYSICIAN: THIAGO MILLIGAN MD DATE OF SERVICE: 05/16/20 Discharge Plan Patient Name: RUCHI WOODS Facility: [facility]:[place] : 1955 Planned Disposition: Anticipated Discharge Date: Discharge Date: Expected LOS: Initial Reviewer: [id number] Initial Review Date: 04/25/2020 Generated: 05/16/20 6:31 pm Comments DCP- Discharge Planning Updated by [email or web address]: Denia Rod on 05/16/20 4:[address] 1700: Patient's nephew, Jose Barakat request that information be sent to [facility], attn: Ambika. Jose states he is still undecided about patient's DC plan, but would like Ida to evaluate patient's information to see what the patient would be more appropriate for. PAULETTE faxed requested information to Ambika with [facility]. Patient choice obtained via telephone from Jose Barakat. 1300: Jose Barakat, nephew of patient, called back and states he has discussed the patient's choices of NH with Hospice and NH and continue with HD. Per Jose, the patient stated to him " Well I better get off my ass and try to work with PT and start eating". Jose would like to know how the patient participates with PT, see if she makes an honest effort, then it will help him make a decision about patient's discharge plan. Jose states he will not make a decision without the patient, due to patient and helping him in the past. 1145: PAULETTE contacted patient's nephew, Brian "Emmanuel Barakat ([phone]), regarding [facility] not accepting patient to their facility. Nephew states "Good, I didn't want her to go there anyway". Jostin JONES also spoke with Jose regarding DC choices. Mr. Barakat states he will CB after he speaks to Mrs. Woods. Mr. Barakat states he is patient's POA, but there was never any paperwork to make it official. Mr. Barakat is at work and will CB later. CM contacted [facility], spoke with Amelia, who states the facility cannot provide transportation for dialysis appointments. CM made Jostin JONES aware of same. Patient's nephew, Jose ([phone]). DCP- Discharge Planning Updated by [email or web address]: Chloe Marley on 05/15/20 2:[address] I spoke with nephew at length today to discuss LTC placement vs Hospice. He is undecided and asks me to speak with patient. I attempted to call patient without an answer. I went to the room and spoke with patient and she understands that she will need to go to a detention, but is not ready to make the decision. I called nephew back and informed him of this and he chooses [facility] for a referral. I called [facility] and spoke with Amelia and clinical faxed. CM will continue to follow and assist with discharge planning/needs. DCP- Discharge Planning Updated by [id number]: Chloe Marley on 05/14/20 9:[address] Patient is in isolation. I spoke with nephew, Jose, to review options for post acute care. I informed him at this time, she is not able to go home to take care of herself. I informed him of the nursing facilities in the area, including [facility]. He is going to discuss with patient about detention vs detention with hospice. CM will continue to follow and assist with discharge planning/needs. DCP- Discharge Planning Updated by [id number]: Carrie Emmanuel on 05/07/20 8:[address] CM was notified late morning to transfer patient to a facility that has neuro since patient is new onset of seizures. CM had called and spoke with house moving supervisor at [facility] and she will call CM back once room is available expecting discharges. CM was notified at 1530 not to transfer patient that Dr. Valderrama will come in this evening to see patient. CM will continue to follow and assist as needed with d/c needs. DCP- Discharge Planning Updated by [email or web address]: Denia Rod on 05/07/20 10:[address] CM received a call from Norma Banks (Johann) with place/day HD. HD: M/W/F @0720, [facility] ORDC chair time 0720. Patient is to be at the facility @0700 for paperwork, bring a blanket, insurance card, ID, medication list. DCP- Discharge Planning Updated by [id number]: Chloe Warddestinee on 05/06/20 4:[address] CM received a call from Norma Williamson, states she is having difficulty with her insurance. I called Jose, nephew, and gave her Norma's number per her request. DCP- Discharge Planning Updated by [id number]: Chloe Ayaka on 05/01/20 2:[address] CM called Norma and left a message on her answering machine that I needed an OP dialysis chair set up for patient. CM will continue to follow and assist with discharge planning/needs. DCP- Discharge Planning Updated by [id number]: Chloe Ayaka on 05/01/20 12:[address] After 3rd call to [facility], I reached Nasra. Nasra states she is now down to 5 days of rehab and they would not be able to accept patient. I spoke with the patient about correction care. She does not want lobsterman care, she would like to go home with [facility]. She is telling me she has changed her mind about dialysis and now would like to be started on dialysis. I notified Soumya and she is calling nephrology. I notified Jostin Beckwith APN. CM will continue to follow and assist with discharge planning/needs. DCP- Discharge Planning Updated by [id number]: Chloe Ayaka on 04/29/20 7:[address] Updated notes faxed to [facility]. DCP- Discharge Planning Updated by [id number]: Chloe Ayaka on 04/25/20 2:[address] I received a call from Irma with [facility] rehab. Irma states that she has enough available days that they can accept her if she is able to participate in therapy more. I spoke with the patient and encouraged her to work as much as she can with therapy. CM will continue to send therapy notes daily to [facility]. DCP- Discharge Planning Updated by [id number]: Chloe Ayaka on 04/25/20 10:[address] Clinical faxed to [facility] for review. CM will continue to follow and assist with discharge needs. DCP- Discharge Planning Updated by [id number]: Chloe Marley on 04/25/20 10:[address] Patient Name: RUCHI WOODS Admission Status: ER Accout number: [id number] Admission Date: 04-22-2020 : 1955 Admission Diagnosis:URINARY TRACT INFECTION, SITE NOT SPECIFIED Attending: THIAGO MILLIGAN Current LOS: 3 Anticipated DC Date: Planned Disposition: Primary Insurance: MEDICAID [place] Discharge Planning Comments: CM met with patient to complete initial dc planning assessment. CM educated patient on the CM role and verbal consent given by patient to complete assessment. Patient lives at home alone, states her nephew lives on the same property and helps her with needs. CM discussed availability of home health, rehab services, and medical equipment. I informed her that her insurance would not cover SNF. The only inpatient rehab that could possibly consider her is [facility] on [address]. She states she has been there before and would like a referral. She refuses detention placement. States if [facility] cannot except, she would go home with resumption of [facility] home health. She does not have oxygen at home, would need a room air sat prior to discharge to assess for home oxygen needs. CM will continue to follow and will assist as needed with dc plans/needs. Inspector Health Care Facilities: Chloe Marley DCPIA - Discharge Planning Initial Assessment Updated by [id number]: Chloe Marley on 04/25/20 10:47 am * Is the patient Alert and Oriented? Yes * How many steps to enter\\exit or inside your home? RAMP/0 * PCP Dr. Beaulieu * Pharm[facility] in [place] * Preadmission Environment Home Alone * ADLs Partial Dependent * Partial ADLs (Assistance needed) Ambulation Bathing Dressing Medication Management Transfers * Equipment Other Walker * Other Equipment Motorized wheelchair * List name and contact numbers for known caregivers / representatives who currently or will assist patient after discharge: Jose sebastian - [phone] * Verbal permission to speak to the caregivers and representatives has been obtained from the patient. Yes * Community resources currently utilized Home Health * Please name any agencies selected above. [facility] home health * Additional services required to return to the preadmission environment? Yes * Can the patient safely return to the preadmission environment? No * Has this patient been hospitalized within the prior 30 days at any hospital? Yes Coverage Notice Reviewer: [email or web address] Darrel Marley Notice Issued Date-Time: 04/25/2020 11:52 Notice Type: Patient Choice Letter Notice Delivered To: Patient Relationship to Patient: Self Cast Iron Dipper Name: Delivery Method: HAND - Hand Delivered Edel Days: Prior Verbal Notification: Recipient Understood Notice: Yes Recipient Signature: Yes Med Rec Note Co-signed by Attending: Coverage Notice Comment: TENISHA FOR [facility] Reviewer: [id number] Darrel Marley Notice Issued Date-Time: 05/15/2020 14:57 Notice Type: Patient Choice Letter Notice Delivered To: Family Member Relationship to Patient: Nephew Cast Iron Dipper Name: JOSE BARAKAT Delivery Method: PHONE - Phone Edel Days: Prior Verbal Notification: Recipient Understood Notice: Yes Recipient Signature: Med Rec Note Co-signed by Attending: Coverage Notice Comment: TENISHA FOR [facility] Reviewer: [email or web address] Darrel Rod Notice Issued Date-Time: 05/16/2020 17:30 Notice Type: Patient Choice Letter Notice Delivered To: Family Member Relationship to Patient: Nephew Cast Iron Dipper Name: Brian Pappas" Hemund Delivery Method: - Edel Days: Prior Verbal Notification: Recipient Understood Notice: Recipient Signature: Med Rec Note Co-signed by Attending: Coverage Notice Comment: Last DP export: 05/16/20 4:24 p Patient Name: RUCHI WOODS Page 19861 at 1732 All edits/amendments must be made on the electronic document DICTATION DATE: 05/16/201730 INBOUND CUSTOMER SERVICE AGENT: FOREST 05/16/201730 RPT#: [id number] [place] DATE: STATUS: ADM IN [facility] [address] [place] [address] END OF REPORT
--- NOTE | 2020-05-16 17:39 | NUR ---
PATIENT HAD VOMITTED ALL OVER BED AGAIN AND HERSELF. PATIENT VOMITTING GREEN CLEAR EMESIS. BED CHANGED AND LINENS CHANGED. CALL LIGHT IN REACH
--- NOTE | 2020-05-16 17:51 | MORECARE ---
CASE MANAGEMENT DISCHARGE SUMMARY PATIENT: RUCHI WOODS UNIT: [id number] ADM DATE: 04/22/20 AGE: 64 : 57 SEX: F ROOM/BED: D.9223 AUTHOR: TYESHADOC PHYSICIAN: REFERRING PHYSICIAN: THIAGO MILLIGAN MD DATE OF SERVICE: 05/16/20 Discharge Plan Patient Name: RUCHI WOODS Facility: [facility]:[place] : 1955 Planned Disposition: Anticipated Discharge Date: Discharge Date: Expected LOS: Initial Reviewer: [email or web address] Initial Review Date: 04/25/2020 Generated: 05/16/20 6:50 pm Comments DCP- Discharge Planning Updated by [id number]: Denia Rod on 05/16/20 4:[address] 1745: PAULETTE faxed the hospice order to [facility]. 1700: Patient's nephew, Jose Andersonpepe request that information be sent to [facility], attn: Ambika. Jose states he is still undecided about patient's DC plan, but would like [place] to evaluate patient's information to see what the patient would be more appropriate for. PAULETTE faxed requested information to Ambika with [facility]. Patient choice obtained via telephone from Jose Barakat. 1300: Jose Barakat, nephew of patient, called back and states he has discussed the patient's choices of NH with Hospice and NH and continue with HD. Per Jose, the patient stated to him " Well I better get off my ass and try to work with PT and start eating". Jose would like to know how the patient participates with PT, see if she makes an honest effort, then it will help him make a decision about patient's discharge plan. Jose states he will not make a decision without the patient, due to patient and helping him in the past. 1145: PAULETTE contacted patient's nephew, Brian "Emmanuel Barakat ([phone]), regarding [facility] not accepting patient to their facility. Nephew states "Good, I didn't want her to go there anyway". Jostin JONES also spoke with Jose regarding DC choices. Mr. Barakat states he will CB after he speaks to Mrs. Woods. Mr. Barakat states he is patient's POA, but there was never any paperwork to make it official. Mr. Barakat is at work and will CB later. CM contacted [facility], spoke with Amelia, who states the facility cannot provide transportation for dialysis appointments. CM made Jostin JONES aware of same. Patient's nephew, Jose ([phone]). DCP- Discharge Planning Updated by [id number]: Chloe Marley on 05/15/20 2:[address] I spoke with nephew at length today to discuss LTC placement vs Hospice. He is undecided and asks me to speak with patient. I attempted to call patient without an answer. I went to the room and spoke with patient and she understands that she will need to go to a shelter, but is not ready to make the decision. I called nephew back and informed him of this and he chooses [facility] for a referral. I called [facility] and spoke with Amelia and clinical faxed. CM will continue to follow and assist with discharge planning/needs. DCP- Discharge Planning Updated by [id number]: Chloe Marley on 05/14/20 9:[address] Patient is in isolation. I spoke with nephew, Jose, to review options for post acute care. I informed him at this time, she is not able to go home to take care of herself. I informed him of the nursing facilities in the area, including [facility]. He is going to discuss with patient about shelter vs shelter with hospice. CM will continue to follow and assist with discharge planning/needs. DCP- Discharge Planning Updated by [id number]: Carrie Emmanuel on 05/07/20 8:[address] CM was notified late morning to transfer patient to a facility that has neuro since patient is new onset of seizures. CM had called and spoke with pulp house supervisor at [facility] and she will call CM back once room is available expecting discharges. CM was notified at 1530 not to transfer patient that Dr. Valderrama will come in this evening to see patient. CM will continue to follow and assist as needed with d/c needs. DCP- Discharge Planning Updated by [id number]: Denia Rod on 05/07/20 10:[address] CM received a call from Norma Banks (Johann) with place/day HD. HD: M/W/F @0720, [facility] chair time 0720. Patient is to be at the facility @0700 for paperwork, bring a blanket, insurance card, ID, medication list. DCP- Discharge Planning Updated by [id number]: Chloe Ayaka on 05/06/20 4:[address] CM received a call from Norma Williamson, states she is having difficulty with her insurance. I called Jose, nephew, and gave her Norma's number per her request. DCP- Discharge Planning Updated by [id number]: Chloe Ayaka on 05/01/20 2:[address] CM called Norma and left a message on her answering machine that I needed an OP dialysis chair set up for patient. CM will continue to follow and assist with discharge planning/needs. DCP- Discharge Planning Updated by [id number]: Chloe Ayaka on 05/01/20 12:[address] After 3rd call to [facility], I reached Nasra. Nasra states she is now down to 5 days of rehab and they would not be able to accept patient. I spoke with the patient about exterminator termite care. She does not want assisted care, she would like to go home with [facility]. She is telling me she has changed her mind about dialysis and now would like to be started on dialysis. I notified Soumya and she is calling nephrology. I notified Jostin Beckwith APN. CM will continue to follow and assist with discharge planning/needs. DCP- Discharge Planning Updated by [id number]: Chloe Ayaka on 04/29/20 7:[address] Updated notes faxed to [facility]. DCP- Discharge Planning Updated by [id number]: Chloe Ayaka on 04/25/20 2:[address] I received a call from Irma with [facility] rehab. Irma states that she has enough available days that they can accept her if she is able to participate in therapy more. I spoke with the patient and encouraged her to work as much as she can with therapy. CM will continue to send therapy notes daily to [facility]. DCP- Discharge Planning Updated by [id number]: Chloe Ayaka on 04/25/20 10:[address] Clinical faxed to [facility] for review. CM will continue to follow and assist with discharge needs. DCP- Discharge Planning Updated by [id number]: Chloe Marley on 04/25/20 10:[address] Patient Name: RUCHI WOODS Admission Status: ER Accout number: [id number] Admission Date: 04-22-2020 : 1955 Admission Diagnosis:URINARY TRACT INFECTION, SITE NOT SPECIFIED Attending: THIAGO MILLIGAN Current LOS: 3 Anticipated DC Date: Planned Disposition: Primary Insurance: MEDICAID [place] Discharge Planning Comments: CM met with patient to complete initial dc planning assessment. CM educated patient on the CM role and verbal consent given by patient to complete assessment. Patient lives at home alone, states her nephew lives on the same property and helps her with needs. CM discussed availability of home health, rehab services, and medical equipment. I informed her that her insurance would not cover SNF. The only inpatient rehab that could possibly consider her is [facility]. She states she has been there before and would like a referral. She refuses shelter placement. States if [facility] cannot except, she would go home with resumption of [facility] health. She does not have oxygen at home, would need a room air sat prior to discharge to assess for home oxygen needs. CM will continue to follow and will assist as needed with dc plans/needs. Care Services Manager: Chloe Warddestinee DCPIA - Discharge Planning Initial Assessment Updated by [email or web address]: Chloe Marley on 04/25/20 10:47 am * Is the patient Alert and Oriented? Yes * How many steps to enter\\exit or inside your home? RAMP/0 * PCP Dr. Beaulieu * Pharmacy [facility] in [place] * Preadmission Environment Home Alone * ADLs Partial Dependent * Partial ADLs (Assistance needed) Ambulation Bathing Dressing Medication Management Transfers * Equipment Other Walker * Other Equipment Motorized wheelchair * List name and contact numbers for known caregivers / representatives who currently or will assist patient after discharge: Jose sebastian - [phone] * Verbal permission to speak to the caregivers and representatives has been obtained from the patient. Yes * Community resources currently utilized Home Health * Please name any agencies selected above. [facility] health * Additional services required to return to the preadmission environment? Yes * Can the patient safely return to the preadmission environment? No * Has this patient been hospitalized within the prior 30 days at any hospital? Yes Coverage Notice Reviewer: [id number] Darrel Marley Notice Issued Date-Time: 04/25/2020 11:52 Notice Type: Patient Choice Letter Notice Delivered To: Patient Relationship to Patient: Self Claim Professional Name: Delivery Method: HAND - Hand Delivered Edel Days: Prior Verbal Notification: Recipient Understood Notice: Yes Recipient Signature: Yes Med Rec Note Co-signed by Attending: Coverage Notice Comment: TENISHA FOR [facility] Reviewer: [id number] Darrel Marley Notice Issued Date-Time: 05/15/2020 14:57 Notice Type: Patient Choice Letter Notice Delivered To: Family Member Relationship to Patient: Nephew Claim Professional Name: JOSE BARAKAT Delivery Method: PHONE - Phone Edel Days: Prior Verbal Notification: Recipient Understood Notice: Yes Recipient Signature: Med Rec Note Co-signed by Attending: Coverage Notice Comment: TENISHA FOR FOREIGNAna LuisaHUNNEWELL Reviewer: [id number] - Denia Rod Notice Issued Date-Time: 05/16/2020 17:30 Notice Type: Patient Choice Letter Notice Delivered To: Family Member Relationship to Patient: Nephew Claim Professional Name: Brian Barakat (Jim) Delivery Method: CERT - Certified Mail Edel Days: Prior Verbal Notification: Recipient Understood Notice: Yes Recipient Signature: Yes Med Rec Note Co-signed by Attending: Coverage Notice Comment: [facility] is nephew's choice for evaluation of care. Last DP export: 05/16/20 4:32 p Patient Name: RUCHI WOODS Page [phone] at 1751 All edits/amendments must be made on the electronic document DICTATION DATE: 05/16/201749 RECEIVABLE CLERK: FOREST 05/16/201749 RPT#: [id number] DC DATE: STATUS: ADM IN [facility] [address] [place] [address] END OF REPORT
--- NOTE | 2020-05-16 18:05 | MORECARE ---
CASE MANAGEMENT DISCHARGE SUMMARY PATIENT: RUCHI WOODS UNIT: [id number] ADM DATE: 04/22/20 AGE: 64 : 57 SEX: F ROOM/BED: D.7366 AUTHOR: TYESHADOC PHYSICIAN: REFERRING PHYSICIAN: THIAGO MILLIGAN MD DATE OF SERVICE: 05/16/20 Discharge Plan Patient Name: RUCHI WOODS Facility: [facility]:[place] : 1955 Planned Disposition: Anticipated Discharge Date: Discharge Date: Expected LOS: Initial Reviewer: [id number] Initial Review Date: 04/25/2020 Generated: 05/16/20 7:04 pm Comments DCP- Discharge Planning Updated by [id number]: Denia Rod on 05/16/20 4:[address] 1745: PAULETTE faxed the hospice order to [facility]. 1700: Patient's nephew, Jose Andersonpepe request that information be sent to [facility], attn: Ambika. Jose states he is still undecided about patient's DC plan, but would like [place] to evaluate patient's information to see what the patient would be more appropriate for. PAULETTE faxed requested information to Ambika with [facility]. Patient choice obtained via telephone from Jose Barakat. 1300: Jose Barakat, nephew of patient, called back and states he has discussed the patient's choices of NH with Hospice and NH and continue with HD. Per Jose, the patient stated to him " Well I better get off my ass and try to work with PT and start eating". Jose would like to know how the patient participates with PT, see if she makes an honest effort, then it will help him make a decision about patient's discharge plan. Jose states he will not make a decision without the patient, due to patient and helping him in the past. 1145: PAULETTE contacted patient's nephew, Brian "Emmanuel Barakat ([phone]), regarding [facility] not accepting patient to their facility. Nephew states "Good, I didn't want her to go there anyway". Jostin JONES also spoke with Jose regarding DC choices. Mr. Barakat states he will CB after he speaks to Mrs. Woods. Mr. Barakat states he is patient's POA, but there was never any paperwork to make it official. Mr. Barakat is at work and will CB later. CM contacted [facility], spoke with Amelia, who states the facility cannot provide transportation for dialysis appointments. CM made Jostin JONES aware of same. Patient's nephew, Jose ([phone]). DCP- Discharge Planning Updated by [email or web address]: Chloe Marley on 05/15/20 2:[address] I spoke with nephew at length today to discuss LTC placement vs Hospice. He is undecided and asks me to speak with patient. I attempted to call patient without an answer. I went to the room and spoke with patient and she understands that she will need to go to a custodial, but is not ready to make the decision. I called nephew back and informed him of this and he chooses [facility] for a referral. I called [facility] and spoke with Amelia and clinical faxed. CM will continue to follow and assist with discharge planning/needs. DCP- Discharge Planning Updated by [id number]: Chloe Marley on 05/14/20 9:[address] Patient is in isolation. I spoke with nephew, Jose, to review options for post acute care. I informed him at this time, she is not able to go home to take care of herself. I informed him of the nursing facilities in the area, including [facility]. He is going to discuss with patient about custodial vs custodial with hospice. CM will continue to follow and assist with discharge planning/needs. DCP- Discharge Planning Updated by [id number]: Carrie Emmanuel on 05/07/20 8:[address] CM was notified late morning to transfer patient to a facility that has neuro since patient is new onset of seizures. CM had called and spoke with data warehouse developer at [facility] and she will call CM back once room is available expecting discharges. CM was notified at 1530 not to transfer patient that Dr. Valderrama will come in this evening to see patient. CM will continue to follow and assist as needed with d/c needs. DCP- Discharge Planning Updated by [id number]: Denia Rod on 05/07/20 10:[address] CM received a call from Norma Banks ([facility]) with place/day HD. HD: M/W/F @0720, [facility] chair time 0720. Patient is to be at the facility @0700 for paperwork, bring a blanket, insurance card, ID, medication list. DCP- Discharge Planning Updated by [id number]: Chloe Ayaka on 05/06/20 4:[address] CM received a call from Norma Williamson, states she is having difficulty with her insurance. I called Jose, nephew, and gave her Norma's number per her request. DCP- Discharge Planning Updated by [id number]: Chloe Ayaka on 05/01/20 2:[address] CM called Norma and left a message on her answering machine that I needed an OP dialysis chair set up for patient. CM will continue to follow and assist with discharge planning/needs. DCP- Discharge Planning Updated by [id number]: Chloe Ayaka on 05/01/20 12:[address] After 3rd call to [facility], I reached Nasra. Nasra states she is now down to 5 days of rehab and they would not be able to accept patient. I spoke with the patient about termite control technician care. She does not want intermediate care, she would like to go home with [facility]. She is telling me she has changed her mind about dialysis and now would like to be started on dialysis. I notified Soumya and she is calling nephrology. I notified Jostin Beckwith APN. CM will continue to follow and assist with discharge planning/needs. DCP- Discharge Planning Updated by [id number]: Chloe Ayaka on 04/29/20 7:[address] Updated notes faxed to [facility]. DCP- Discharge Planning Updated by [id number]: Chloe Ayaka on 04/25/20 2:[address] I received a call from Irma with [facility] rehab. Irma states that she has enough available days that they can accept her if she is able to participate in therapy more. I spoke with the patient and encouraged her to work as much as she can with therapy. CM will continue to send therapy notes daily to [facility]. DCP- Discharge Planning Updated by [id number]: Chloe Ayaka on 04/25/20 10:[address] Clinical faxed to [facility] for review. CM will continue to follow and assist with discharge needs. DCP- Discharge Planning Updated by [id number]: Chloe Marley on 04/25/20 10:[address] Patient Name: RUCHI WOODS Admission Status: ER Accout number: [id number] Admission Date: 04-22-2020 : 1955 Admission Diagnosis:URINARY TRACT INFECTION, SITE NOT SPECIFIED Attending: THIAGO MILLIGAN Current LOS: 3 Anticipated DC Date: Planned Disposition: Primary Insurance: MEDICAID [place] Discharge Planning Comments: CM met with patient to complete initial dc planning assessment. CM educated patient on the CM role and verbal consent given by patient to complete assessment. Patient lives at home alone, states her nephew lives on the same property and helps her with needs. CM discussed availability of home health, rehab services, and medical equipment. I informed her that her insurance would not cover SNF. The only inpatient rehab that could possibly consider her is [facility]. She states she has been there before and would like a referral. She refuses custodial placement. States if [facility] cannot except, she would go home with resumption of [facility] health. She does not have oxygen at home, would need a room air sat prior to discharge to assess for home oxygen needs. CM will continue to follow and will assist as needed with dc plans/needs. Guest House Manager: Chloe Warddestinee DCPIA - Discharge Planning Initial Assessment Updated by [id number]: Chloe Marley on 04/25/20 10:47 am * Is the patient Alert and Oriented? Yes * How many steps to enter\\exit or inside your home? RAMP/0 * PCP Dr. Beaulieu * Pharmacy [facility] in [place] * Preadmission Environment Home Alone * ADLs Partial Dependent * Partial ADLs (Assistance needed) Ambulation Bathing Dressing Medication Management Transfers * Equipment Other Walker * Other Equipment Motorized wheelchair * List name and contact numbers for known caregivers / representatives who currently or will assist patient after discharge: Jose sebastian - [phone] * Verbal permission to speak to the caregivers and representatives has been obtained from the patient. Yes * Community resources currently utilized Home Health * Please name any agencies selected above. [facility] health * Additional services required to return to the preadmission environment? Yes * Can the patient safely return to the preadmission environment? No * Has this patient been hospitalized within the prior 30 days at any hospital? Yes Coverage Notice Reviewer: [id number] Darrel Marley Notice Issued Date-Time: 04/25/2020 11:52 Notice Type: Patient Choice Letter Notice Delivered To: Patient Relationship to Patient: Self Tea Taster Name: Delivery Method: HAND - Hand Delivered Edel Days: Prior Verbal Notification: Recipient Understood Notice: Yes Recipient Signature: Yes Med Rec Note Co-signed by Attending: Coverage Notice Comment: TENISHA FOR [facility] Reviewer: [id number] Darrel Marley Notice Issued Date-Time: 05/15/2020 14:57 Notice Type: Patient Choice Letter Notice Delivered To: Family Member Relationship to Patient: Nephew Tea Taster Name: JOSE BARAKAT Delivery Method: PHONE - Phone Edel Days: Prior Verbal Notification: Recipient Understood Notice: Yes Recipient Signature: Med Rec Note Co-signed by Attending: Coverage Notice Comment: TENISHA FOR FOREIGNAna LuisaCARLISLE Reviewer: [id number] - Denia Rod Notice Issued Date-Time: 05/16/2020 17:30 Notice Type: Patient Choice Letter Notice Delivered To: Family Member Relationship to Patient: Nephew Tea Taster Name: Brian Barakat (Jim) Delivery Method: CERT - Certified Mail Edel Days: Prior Verbal Notification: Recipient Understood Notice: Yes Recipient Signature: Yes Med Rec Note Co-signed by Attending: Coverage Notice Comment: [facility] is nephew's choice for evaluation of care. Last DP export: 05/16/20 4:51 p Patient Name: RUCHI WOODS Page [phone] at 1805 All edits/amendments must be made on the electronic document DICTATION DATE: 05/16/201803 AUDIT MACHINE OPERATOR: FOREST 05/16/201803 RPT#: [id number] DC DATE: STATUS: ADM IN [facility] [address] [place] [address] END OF REPORT
--- NOTE | 2020-05-16 18:18 | MORECARE ---
CASE MANAGEMENT DISCHARGE SUMMARY PATIENT: RUCHI WOODS UNIT: [id number] ADM DATE: 04/22/20 AGE: 64 : 57 SEX: F ROOM/BED: D.1298 AUTHOR: TYESHADOC PHYSICIAN: REFERRING PHYSICIAN: THIAGO MILLIGAN MD DATE OF SERVICE: 05/16/20 Discharge Plan Patient Name: RUCHI WOODS Facility: [facility]:[place] : 1955 Planned Disposition: Anticipated Discharge Date: Discharge Date: Expected LOS: Initial Reviewer: [email or web address] Initial Review Date: 04/25/2020 Generated: 05/16/20 7:18 pm Comments DCP- Discharge Planning Updated by [id number]: Denia Rod on 05/16/20 4:[address] 1745: PAULETTE faxed the hospice order to [facility]. 1700: Patient's nephew, Jose Andersonpepe request that information be sent to [facility], attn: Ambika. Jose states he is still undecided about patient's DC plan, but would like [facility] to evaluate patient's information to see what the patient would be more appropriate for. PAULETTE faxed requested information to Ambika with [facility]. Patient choice obtained via telephone from Jose Barakat. 1300: Jose Barakat, nephew of patient, called back and states he has discussed the patient's choices of NH with Hospice and NH and continue with HD. Per Jose, the patient stated to him " Well I better get off my ass and try to work with PT and start eating". Jose would like to know how the patient participates with PT, see if she makes an honest effort, then it will help him make a decision about patient's discharge plan. Jose states he will not make a decision without the patient, due to patient and helping him in the past. 1145: PAULETTE contacted patient's nephew, Brian "Emmanuel Barakat ([phone]), regarding [facility] not accepting patient to their facility. Nephew states "Good, I didn't want her to go there anyway". Jostin JONES also spoke with Jose regarding DC choices. Mr. Barakat states he will CB after he speaks to Mrs. Woods. Mr. Barakat states he is patient's POA, but there was never any paperwork to make it official. Mr. Barakat is at work and will CB later. CM contacted [facility], spoke with Amelia, who states the facility cannot provide transportation for dialysis appointments. CM made Jostin JONES aware of same. Patient's nephew, Jose ([phone]). DCP- Discharge Planning Updated by [id number]: Chloe Marley on 05/15/20 2:[address] I spoke with nephew at length today to discuss LTC placement vs Hospice. He is undecided and asks me to speak with patient. I attempted to call patient without an answer. I went to the room and spoke with patient and she understands that she will need to go to a fdc, but is not ready to make the decision. I called nephew back and informed him of this and he chooses [facility] for a referral. I called [facility] and spoke with Amelia and clinical faxed. CM will continue to follow and assist with discharge planning/needs. DCP- Discharge Planning Updated by [id number]: Chloe Marley on 05/14/20 9:[address] Patient is in isolation. I spoke with nephew, Jose, to review options for post acute care. I informed him at this time, she is not able to go home to take care of herself. I informed him of the nursing facilities in the area, including [facility]. He is going to discuss with patient about fdc vs fdc with hospice. CM will continue to follow and assist with discharge planning/needs. DCP- Discharge Planning Updated by [id number]: Carrie Emmanuel on 05/07/20 8:[address] CM was notified late morning to transfer patient to a facility that has neuro since patient is new onset of seizures. CM had called and spoke with boiler house supervisor at [facility] and she will call CM back once room is available expecting discharges. CM was notified at 1530 not to transfer patient that Dr. Valderrama will come in this evening to see patient. CM will continue to follow and assist as needed with d/c needs. DCP- Discharge Planning Updated by [id number]: Denia Rod on 05/07/20 10:[address] CM received a call from Norma Banks ([facility]oh[facility]) with place/day HD. HD: M/W/F @0720, [facility] chair time 0720. Patient is to be at the facility @0700 for paperwork, bring a blanket, insurance card, ID, medication list. DCP- Discharge Planning Updated by [email or web address]: Chloe Ayaka on 05/06/20 4:[address] CM received a call from Norma Williamson, states she is having difficulty with her insurance. I called Jose, nephew, and gave her Norma's number per her request. DCP- Discharge Planning Updated by [id number]: Chloe Ayaka on 05/01/20 2:[address] CM called Norma and left a message on her answering machine that I needed an OP dialysis chair set up for patient. CM will continue to follow and assist with discharge planning/needs. DCP- Discharge Planning Updated by [email or web address]: Chloe Ayaka on 05/01/20 12:[address] After 3rd call to [facility], I reached Nasra. Nasra states she is now down to 5 days of rehab and they would not be able to accept patient. I spoke with the patient about termite control service representative care. She does not want correction care, she would like to go home with [facility]. She is telling me she has changed her mind about dialysis and now would like to be started on dialysis. I notified Soumya and she is calling nephrology. I notified Jostin Beckwith APN. CM will continue to follow and assist with discharge planning/needs. DCP- Discharge Planning Updated by [id number]: Chloe Ayaka on 04/29/20 7:[address] Updated notes faxed to [facility]. DCP- Discharge Planning Updated by [email or web address]: Chloe Ayaka on 04/25/20 2:[address] I received a call from Irma with [facility] rehab. Irma states that she has enough available days that they can accept her if she is able to participate in therapy more. I spoke with the patient and encouraged her to work as much as she can with therapy. CM will continue to send therapy notes daily to [facility]. DCP- Discharge Planning Updated by [email or web address]: Chloe Ayaka on 04/25/20 10:[address] Clinical faxed to [facility] for review. CM will continue to follow and assist with discharge needs. DCP- Discharge Planning Updated by [id number]: Chloe Marley on 04/25/20 10:[address] Patient Name: RUCHI WOODS Admission Status: ER Accout number: [id number] Admission Date: 04-22-2020 : 1955 Admission Diagnosis:URINARY TRACT INFECTION, SITE NOT SPECIFIED Attending: THIAGO MILLIGAN Current LOS: 3 Anticipated DC Date: Planned Disposition: Primary Insurance: MEDICAID [place] Discharge Planning Comments: CM met with patient to complete initial dc planning assessment. CM educated patient on the CM role and verbal consent given by patient to complete assessment. Patient lives at home alone, states her nephew lives on the same property and helps her with needs. CM discussed availability of home health, rehab services, and medical equipment. I informed her that her insurance would not cover SNF. The only inpatient rehab that could possibly consider her is [facility] on [facility]. She states she has been there before and would like a referral. She refuses fdc placement. States if [facility] cannot except, she would go home with resumption of [facility] health. She does not have oxygen at home, would need a room air sat prior to discharge to assess for home oxygen needs. CM will continue to follow and will assist as needed with dc plans/needs. [place] Pilot: Chloe Warddestinee DCPIA - Discharge Planning Initial Assessment Updated by [email or web address]: Chloe Marley on 04/25/20 10:47 am * Is the patient Alert and Oriented? Yes * How many steps to enter\\exit or inside your home? RAMP/0 * PCP Dr. Beaulieu * Pharmacy [facility] in [place] * Preadmission Environment Home Alone * ADLs Partial Dependent * Partial ADLs (Assistance needed) Ambulation Bathing Dressing Medication Management Transfers * Equipment Other Walker * Other Equipment Motorized wheelchair * List name and contact numbers for known caregivers / representatives who currently or will assist patient after discharge: Jose sebastian - [phone] * Verbal permission to speak to the caregivers and representatives has been obtained from the patient. Yes * Community resources currently utilized Home Health * Please name any agencies selected above. [facility] health * Additional services required to return to the preadmission environment? Yes * Can the patient safely return to the preadmission environment? No * Has this patient been hospitalized within the prior 30 days at any hospital? Yes Coverage Notice Reviewer: [id number] Darrel Marley Notice Issued Date-Time: 04/25/2020 11:52 Notice Type: Patient Choice Letter Notice Delivered To: Patient Relationship to Patient: Self Risk Control Consultant Name: Delivery Method: HAND - Hand Delivered Edel Days: Prior Verbal Notification: Recipient Understood Notice: Yes Recipient Signature: Yes Med Rec Note Co-signed by Attending: Coverage Notice Comment: TENISHA FOR [facility] Reviewer: [id number] Darrel Marley Notice Issued Date-Time: 05/15/2020 14:57 Notice Type: Patient Choice Letter Notice Delivered To: Family Member Relationship to Patient: Nephew Risk Control Consultant Name: JOSE BARAKAT Delivery Method: PHONE - Phone Edel Days: Prior Verbal Notification: Recipient Understood Notice: Yes Recipient Signature: Med Rec Note Co-signed by Attending: Coverage Notice Comment: [place] Reviewer: [id number] - Denia Rod Notice Issued Date-Time: 05/16/2020 17:30 Notice Type: Patient Choice Letter Notice Delivered To: Family Member Relationship to Patient: Nephew Risk Control Consultant Name: Brian Barakat (Jim) Delivery Method: CERT - Certified Mail Edel Days: Prior Verbal Notification: Recipient Understood Notice: Yes Recipient Signature: Yes Med Rec Note Co-signed by Attending: Coverage Notice Comment: [facility] is nephew's choice for evaluation of care. Last DP export: 05/16/20 5:05 p Patient Name: RUCHI WOODS Page 88887 at 1818 All edits/amendments must be made on the electronic document DICTATION DATE: 05/16/201817 KENNEL SUPERVISOR: FOREST 05/16/201817 RPT#: [id number] DC DATE: STATUS: ADM IN [facility] [address] [place] [address] END OF REPORT
[2020-05-16 20:00] VITALS: BP 115/70
[2020-05-17 03:53] LABS: BASOPHILS 0.2 % (0-2); EOSINOPHILS 1.6 % (0-7); HEMATOCRIT 24.7 % (36.0-48.0); HEMOGLOBIN 7.8 g/dL (12-16); IMMATURE GRANULOCYTES 0.6 % (0-5); MCH 27.1 pg (26.0-34.0); MCHC 31.6 g/dL (31.0-37.0); MCV 85.8 fL (80.0-100.0); MEAN PLATELET VOLUME 9.5 fL (7.4-10.4); NEUTROPHILS 68.6 % (40-80); PLATELET COUNT 92 10x3/uL (130-400); RBC 2.88 10x6/uL (4.00-5.40); RDW 14.7 % (11.5-14.5); WBC 5.1 10x3/uL (4.8-10.8)
[2020-05-17 04:00] VITALS: BP 124/68
[2020-05-17 04:00] LABS: ALBUMIN 2.9 g/dL (3.4-5.0); ANION GAP 12.7 mmol/L (8-16); BILIRUBIN - TOTAL 0.59 mg/dL (0.2-1.3); CALCIUM 8.4 mg/dL (8.5-10.1); CREATININE - SERUM 3.4 mg/dL (0.6-1.3); GENTAMICIN - RANDOM 1.3 ug/mL (0.5-2.0); POTASSIUM - SERUM 3.7 mmol/L (3.5-5.1); PROTEIN - SERUM 5.7 g/dL (6.4-8.2)
[2020-05-17 10:44] VITALS: BP 137/70
[2020-05-17 14:13] VITALS: BP 105/66
[2020-05-17 23:04] VITALS: BP 101/39
[2020-05-18] VITALS (8 sets, daily range): BP systolic 74–105; BP diastolic 41–61
--- NOTE | 2020-05-18 06:20 | NUR ---
UNAWARE OR PTS VITALS RECORDED EARLIER. MANUAL BP TAKEN 102/54, SPO2 97% ON 2L, HR 106, TEMP98.1
--- NOTE | 2020-05-18 08:00 | NUR ---
PT LAYING SUPINE, RR EVEN AND UNLABORED; HOWEVER, PULSE OX READING 86% ON 2L NC. INCREASED O2 TO 4L NC AND OXYGEN SAT 100%. BP 74/48. SPOKE WITH DR. GAY. NO LABS HAD BEEN ORDERED THIS AM AND HGB YESTERDAY WAS 7.6. ORDERED STAT LABS AND HE STATED TO CALL NEPHROLOGY FOR INTERVENTIONS. AT THIS TIME, UNABLE TO OBTAIN AN AUTOMATIC BP. MANUAL BP IS 60 SYSTOLIC WITH NO DIALSTOLIC. PT IS PALE BUT IS MOVING EXTREMITIES AND GARBLED SPEECH. PULSE IS 110 WEAK IN BILATERAL RADIAL. SPOKE WITH OG CASSIDY. ORDERS RECIEVED FOR ALBUMIN INFUSION. AFTER ALBUMIN WAS COMPLETE, BP AUTOMATIC 75/51, MANUAL 90/60. LAB CALLED WITH A CRITICAL HGB OF 6.9. CALLED AND SPOKE WITH ANGE AGAIN AND SHE STATED TO TRANSFUSE X2 PRBC. WILL CONTINUE TO MONITOR.
[2020-05-18 08:58] LABS: BASOPHILS 0.6 % (0-2); EOSINOPHILS 0.2 % (0-7); HEMATOCRIT 21.8 % (36.0-48.0); IMMATURE GRANULOCYTES 0.4 % (0-5); LYMPHOCYTES 18.1 % (15-50); MCH 27.2 pg (26.0-34.0); MCHC 31.7 g/dL (31.0-37.0); MCV 85.8 fL (80.0-100.0); MEAN PLATELET VOLUME 9.4 fL (7.4-10.4); MONOCYTES 4.3 % (2-11); NEUTROPHILS 76.4 % (40-80); RBC 2.54 10x6/uL (4.00-5.40); RDW 14.5 % (11.5-14.5); WBC 4.7 10x3/uL (4.8-10.8)
[2020-05-18 08:59] LABS: PLATELET COUNT 64 10x3/uL (130-400)
[2020-05-18 09:01] LABS: HEMOGLOBIN 6.9 g/dL (12-16)
[2020-05-18 09:03] LABS: PLATELET ESTIMATE DECREASED
--- NOTE | 2020-05-18 18:09 | NUR ---
2ND UNIT PRBC INFUSING WITHOUT ADVERSE REACTIONS NOTED.
--- NOTE | 2020-05-18 21:32 | NUR ---
PT REMAINS LETHARGIC BUT VITALS WNL. NO S/SX OF DISTRESS OBSERVED. NO NEEDS EXPRESSED. WILL CPOC.
[2020-05-19 00:01] VITALS: BP 112/66
[2020-05-19 04:30] VITALS: BP 105/62
[2020-05-19 05:29] LABS: BASOPHILS 0.2 % (0-2); EOSINOPHILS 0.2 % (0-7); IMMATURE GRANULOCYTES 0.6 % (0-5); LYMPHOCYTES 13.7 % (15-50); MCHC 33.8 g/dL (31.0-37.0); MCV 85.8 fL (80.0-100.0); MEAN PLATELET VOLUME 9.3 fL (7.4-10.4); MONOCYTES 0.5 % (2-11); NEUTROPHILS 84.8 % (40-80); PLATELET COUNT 52 10x3/uL (130-400); RDW 14.6 % (11.5-14.5)
[2020-05-19 05:56] LABS: ANION GAP 12.3 mmol/L (8-16); CALCIUM 8.3 mg/dL (8.5-10.1); CARBON DIOXIDE 24.7 mmol/L (21.0-32.0); CREATININE - SERUM 4.4 mg/dL (0.6-1.3); GENTAMICIN - RANDOM 2.6 ug/mL (0.5-2.0); MAGNESIUM - SERUM 1.7 mg/dL (1.8-2.4); PHOSPHOROUS 2.1 mg/dL (2.5-4.9)
[2020-05-19 06:04] LABS: HEMATOCRIT 31.4 % (36.0-48.0); HEMOGLOBIN 10.6 g/dL (12-16); RBC 3.66 10x6/uL (4.00-5.40); WBC 9.2 10x3/uL (4.8-10.8)
[2020-05-19 08:32] VITALS: BP 111/61
--- NOTE | 2020-05-19 09:14 | MORECARE ---
CASE MANAGEMENT DISCHARGE SUMMARY PATIENT: RUCHI WOODS UNIT: [id number] ADM DATE: 04/22/20 AGE: 64 : 57 SEX: F ROOM/BED: D.1843 AUTHOR: TYESHADOC PHYSICIAN: REFERRING PHYSICIAN: THIAGO MILLIGAN MD DATE OF SERVICE: 05/19/20 Discharge Plan Patient Name: RUCHI WOODS Facility: [facility]:[place] : 1955 Planned Disposition: Anticipated Discharge Date: Discharge Date: Expected LOS: Initial Reviewer: [id number] Initial Review Date: 04/25/2020 Generated: 05/19/20 10:13 am Comments DCP- Discharge Planning Updated by [id number]: Denia Rod on 05/16/20 4:[address] 1745: PAULETTE faxed the hospice order to [facility]. 1700: Patient's nephew, Jose Barakat request that information be sent to [facility], attn: Ambika. Jose states he is still undecided about patient's DC plan, but would like [facility] to evaluate patient's information to see what the patient would be more appropriate for. PAULETTE faxed requested information to Ambika with [facility]. Patient choice obtained via telephone from Jose Barakat. 1300: Jose Barakat, nephew of patient, called back and states he has discussed the patient's choices of NH with Hospice and NH and continue with HD. Per Jose, the patient stated to him " Well I better get off my ass and try to work with PT and start eating". Jose would like to know how the patient participates with PT, see if she makes an honest effort, then it will help him make a decision about patient's discharge plan. Jose states he will not make a decision without the patient, due to patient and helping him in the past. 1145: PAULETTE contacted patient's nephew, Brian "Emmanuel Barakat ([phone]), regarding [facility] not accepting patient to their facility. Nephew states "Good, I didn't want her to go there anyway". Jostin JONES also spoke with Jose regarding DC choices. Mr. Barakat states he will CB after he speaks to Mrs. Woods. Mr. Barakat states he is patient's POA, but there was never any paperwork to make it official. Mr. Barakat is at work and will CB later. CM contacted [facility], spoke with Amelia, who states the facility cannot provide transportation for dialysis appointments. CM made Jostin JONES aware of same. Patient's nephew, Jose ([phone]). DCP- Discharge Planning Updated by [email or web address]: Chloe Marley on 05/15/20 2:[address] I spoke with nephew at length today to discuss LTC placement vs Hospice. He is undecided and asks me to speak with patient. I attempted to call patient without an answer. I went to the room and spoke with patient and she understands that she will need to go to a long-term, but is not ready to make the decision. I called nephew back and informed him of this and he chooses [facility] for a referral. I called [facility] and spoke with Amelia and clinical faxed. CM will continue to follow and assist with discharge planning/needs. DCP- Discharge Planning Updated by [id number]: Chloe Marley on 05/14/20 9:[address] Patient is in isolation. I spoke with nephew, Jose, to review options for post acute care. I informed him at this time, she is not able to go home to take care of herself. I informed him of the nursing facilities in the area, including [facility]. He is going to discuss with patient about long-term vs long-term with hospice. CM will continue to follow and assist with discharge planning/needs. DCP- Discharge Planning Updated by [id number]: Carrie Emmanuel on 05/07/20 8:[address] CM was notified late morning to transfer patient to a facility that has neuro since patient is new onset of seizures. CM had called and spoke with house fellow at [facility] and she will call CM back once room is available expecting discharges. CM was notified at 1530 not to transfer patient that Dr. Valderrama will come in this evening to see patient. CM will continue to follow and assist as needed with d/c needs. DCP- Discharge Planning Updated by [id number]: Denia Rod on 05/07/20 10:[address] CM received a call from Norma Banks ([facility]oh[facility]) with place/day HD. HD: M/W/F @0720, [facility] chair time 0720. Patient is to be at the facility @0700 for paperwork, bring a blanket, insurance card, ID, medication list. DCP- Discharge Planning Updated by [id number]: Chloe Ayaka on 05/06/20 4:[address] CM received a call from Norma Williamson, states she is having difficulty with her insurance. I called Jose, nephew, and gave her Norma's number per her request. DCP- Discharge Planning Updated by [id number]: Chloe Ayaka on 05/01/20 2:[address] CM called Norma and left a message on her answering machine that I needed an OP dialysis chair set up for patient. CM will continue to follow and assist with discharge planning/needs. DCP- Discharge Planning Updated by [id number]: Chloe Ayaka on 05/01/20 12:[address] After 3rd call to [facility], I reached Nasra. Nasra states she is now down to 5 days of rehab and they would not be able to accept patient. I spoke with the patient about chcf care. She does not want oysterman care, she would like to go home with [facility]. She is telling me she has changed her mind about dialysis and now would like to be started on dialysis. I notified Soumya and she is calling nephrology. I notified Jostin Beckwith APN. CM will continue to follow and assist with discharge planning/needs. DCP- Discharge Planning Updated by [id number]: Chloe Ayaka on 04/29/20 7:[address] Updated notes faxed to [facility]. DCP- Discharge Planning Updated by [id number]: Chloe Ayaka on 04/25/20 2:[address] I received a call from Irma with [facility] rehab. Irma states that she has enough available days that they can accept her if she is able to participate in therapy more. I spoke with the patient and encouraged her to work as much as she can with therapy. CM will continue to send therapy notes daily to [facility]. DCP- Discharge Planning Updated by [id number]: Chloe Ayaka on 04/25/20 10:[address] Clinical faxed to [facility] for review. CM will continue to follow and assist with discharge needs. DCP- Discharge Planning Updated by [id number]: Chloe Marley on 04/25/20 10:[address] Patient Name: RUCHI WOODS Admission Status: ER Accout number: [id number] Admission Date: 04-22-2020 : 1955 Admission Diagnosis:URINARY TRACT INFECTION, SITE NOT SPECIFIED Attending: THIAGO MILLIGAN Current LOS: 3 Anticipated DC Date: Planned Disposition: Primary Insurance: MEDICAID [place] Discharge Planning Comments: CM met with patient to complete initial dc planning assessment. CM educated patient on the CM role and verbal consent given by patient to complete assessment. Patient lives at home alone, states her nephew lives on the same property and helps her with needs. CM discussed availability of home health, rehab services, and medical equipment. I informed her that her insurance would not cover SNF. The only inpatient rehab that could possibly consider her is [facility] on [facility]. She states she has been there before and would like a referral. She refuses long-term placement. States if [facility] cannot except, she would go home with resumption of [facility] health. She does not have oxygen at home, would need a room air sat prior to discharge to assess for home oxygen needs. CM will continue to follow and will assist as needed with dc plans/needs. Rug Inspector: Chloe Warddestinee DCPIA - Discharge Planning Initial Assessment Updated by [id number]: Chloe Marley on 04/25/20 10:47 am * Is the patient Alert and Oriented? Yes * How many steps to enter\\exit or inside your home? RAMP/0 * PCP Dr. Beaulieu * Pharmacy [facility] in [place] * Preadmission Environment Home Alone * ADLs Partial Dependent * Partial ADLs (Assistance needed) Ambulation Bathing Dressing Medication Management Transfers * Equipment Other Walker * Other Equipment Motorized wheelchair * List name and contact numbers for known caregivers / representatives who currently or will assist patient after discharge: Jose sebastian - [phone] * Verbal permission to speak to the caregivers and representatives has been obtained from the patient. Yes * Community resources currently utilized Home Health * Please name any agencies selected above. [facility] health * Additional services required to return to the preadmission environment? Yes * Can the patient safely return to the preadmission environment? No * Has this patient been hospitalized within the prior 30 days at any hospital? Yes Coverage Notice Reviewer: [id number] Darrel Marley Notice Issued Date-Time: 04/25/2020 11:52 Notice Type: Patient Choice Letter Notice Delivered To: Patient Relationship to Patient: Self Tube Cutter Operator Name: Delivery Method: HAND - Hand Delivered Edel Days: Prior Verbal Notification: Recipient Understood Notice: Yes Recipient Signature: Yes Med Rec Note Co-signed by Attending: Coverage Notice Comment: TENISHA FOR [facility] Reviewer: [id number] Darrel Marley Notice Issued Date-Time: 05/15/2020 14:57 Notice Type: Patient Choice Letter Notice Delivered To: Family Member Relationship to Patient: Nephew Tube Cutter Operator Name: JOSE BARAKAT Delivery Method: PHONE - Phone Edel Days: Prior Verbal Notification: Recipient Understood Notice: Yes Recipient Signature: Med Rec Note Co-signed by Attending: Coverage Notice Comment: TENISHA FOR [place]IGNAna Luisa[place] Reviewer: [id number] - Denia Rod Notice Issued Date-Time: 05/16/2020 17:30 Notice Type: Patient Choice Letter Notice Delivered To: Family Member Relationship to Patient: Nephew Tube Cutter Operator Name: Brian Barakat (Jim) Delivery Method: CERT - Certified Mail Edel Days: Prior Verbal Notification: Recipient Understood Notice: Yes Recipient Signature: Yes Med Rec Note Co-signed by Attending: Coverage Notice Comment: [facility] is nephew's choice for evaluation of care. Last DP export: 05/16/20 5:18 p Patient Name: RUCHI WOODS Page 94422 at 0914 All edits/amendments must be made on the electronic document DICTATION DATE: 05/19/20912 CIVIL ENGINEER IN TRAINING: FOREST 05/19/20912 RPT#: [id number] DC DATE: STATUS: ADM IN [facility] [address] [place] [address] END OF REPORT
[2020-05-19 12:40] VITALS: BP 121/64
--- NOTE | 2020-05-19 16:00 | NUR ---
I have reviewed this patient and I concur with the Shift Assessment completed by the Licensed Practical Nurse today this shift.
[2020-05-19 16:13] VITALS: BP 111/61
[2020-05-19 20:46] VITALS: BP 89/48
[2020-05-20 01:31] VITALS: BP 140/71
[2020-05-20 05:41] VITALS: BP 97/53
--- NOTE | 2020-05-20 07:15 | NUR ---
RECEIVE SHIFT REPORT. RESTING IN BED WITH TV ON. ISOLATION PRECAUTIONS IN PLACE. DENIES ANY NEEDS AT THIS TIME. WILL CONTINUE PLAN OF CARE AND SAFETY PRECAUTIONS.
[2020-05-20 07:38] LABS: CALCIUM 8.2 mg/dL (8.5-10.1); CARBON DIOXIDE 23.2 mmol/L (21.0-32.0); CREATININE - SERUM 4.9 mg/dL (0.6-1.3); GENTAMICIN - RANDOM 2.2 ug/mL (0.5-2.0); MAGNESIUM - SERUM 2.1 mg/dL (1.8-2.4); POTASSIUM - SERUM 4.2 mmol/L (3.5-5.1)
[2020-05-20 07:39] LABS: PHOSPHOROUS 3.3 mg/dL (2.5-4.9)
[2020-05-20 07:58] LABS: BASOPHILS 0.3 % (0-2); EOSINOPHILS 0.8 % (0-7); HEMATOCRIT 29.5 % (36.0-48.0); HEMOGLOBIN 9.9 g/dL (12-16); IMMATURE GRANULOCYTES 0.6 % (0-5); LYMPHOCYTES 17.9 % (15-50); MCH 28.9 pg (26.0-34.0); MCHC 33.6 g/dL (31.0-37.0); MEAN PLATELET VOLUME 10.6 fL (7.4-10.4); MONOCYTES 1.3 % (2-11); NEUTROPHILS 79.1 % (40-80); RBC 3.43 10x6/uL (4.00-5.40); RDW 15.3 % (11.5-14.5); WBC 9.5 10x3/uL (4.8-10.8)
[2020-05-20 08:02] VITALS: BP 103/62
[2020-05-20 08:11] LABS: PLATELET COUNT 36 10x3/uL (130-400)
[2020-05-20 11:56] VITALS: BP 128/75
--- NOTE | 2020-05-20 13:19 | NUR ---
PATIENT HAS ADVANCE DIRECTIVE IN CHART. PATIENT STATES SHE DOES NOT WANT TO BE INTUBATED.
[2020-05-20 17:26] VITALS: BP 97/59
--- NOTE | 2020-05-20 21:56 | NUR ---
DIALYSIS IS HERE BED LOW AND LOCKED CALL LIGHT IS IN REACH
[2020-05-20 23:15] VITALS: BP 87/50
[2020-05-21 03:03] VITALS: BP 99/53
[2020-05-21 05:34] LABS: ANION GAP 17.8 mmol/L (8-16); CALCIUM 8.2 mg/dL (8.5-10.1); CARBON DIOXIDE 21.3 mmol/L (21.0-32.0); CREATININE - SERUM 4.6 mg/dL (0.6-1.3); GENTAMICIN - RANDOM 1.7 ug/mL (0.5-2.0); MAGNESIUM - SERUM 2.1 mg/dL (1.8-2.4); PHOSPHOROUS 3.1 mg/dL (2.5-4.9); POTASSIUM - SERUM 4.1 mmol/L (3.5-5.1)
[2020-05-21 05:36] LABS: BASOPHILS 0.2 % (0-2); EOSINOPHILS 0.8 % (0-7); HEMATOCRIT 28.5 % (36.0-48.0); HEMOGLOBIN 9.5 g/dL (12-16); IMMATURE GRANULOCYTES 0.5 % (0-5); LYMPHOCYTES 16.6 % (15-50); MCH 28.5 pg (26.0-34.0); MCHC 33.3 g/dL (31.0-37.0); MCV 85.6 fL (80.0-100.0); MONOCYTES 2.5 % (2-11); NEUTROPHILS 79.4 % (40-80); RBC 3.33 10x6/uL (4.00-5.40); RDW 15.4 % (11.5-14.5); WBC 8.6 10x3/uL (4.8-10.8)
[2020-05-21 06:11] VITALS: BP 120/78
[2020-05-21 06:20] LABS: PLATELET COUNT 24 10x3/uL (130-400)
[2020-05-21 07:00] VITALS: BP 95/64
[2020-05-21 07:24] LABS: NORMAL PLASMA / APTT 39.5 SECONDS (22.8-39.4); NORMAL PLASMA / PROTHROMBIN 13.8 SECONDS (11.6-15.0)
[2020-05-21 07:55] LABS: PLATELET ESTIMATE DECREASED
[2020-05-21 10:30] VITALS: BP 88/40
--- NOTE | 2020-05-21 13:27 | NUR ---
IN AND OUT CATH DONE FOR [facility]. OP 200CC BROWN AND THICK. WILL MONITOR.
--- NOTE | 2020-05-21 13:28 | NUR ---
Nutrition Follow-up: Pt remains NPO. Receiving Procal @ 30 mL/hr (provides 176 kcal & 22 g protein). Noted surgery concerned about post-op complications with PEG. Nephrology does not think PEG is appropriate. Noted pt with poor prognosis; hospice has been discussed with family but they are not ready. Wt: 231# (05/16) Labs noted: K+ 4.1, Glu 116, Ca 8.2 Meds noted: Protonix, folic acid, Carafate, NS @ KVO, electrolyte protocol -Procal is not adequate to meet pt's needs. If pt not going to be hospice, pt needs to be receiving more substantial nutrition support, at least increased Procal rate. -Need new wt if possible. -RD following.
[2020-05-21 13:31] LABS: BILIRUBIN NEGATIVE (NEGATIVE); KETONE SMALL mg/dL (NEGATIVE); NITRITE NEGATIVE (NEGATIVE); UROBILINOGEN NORMAL mg/dL (< 2)
[2020-05-21 13:33] LABS: BACTERIA MANY HPF (NONE SEEN); EPITHELIAL CELLS 0-5 /hpf (0-5); WHITE CELLS - URINE >50 HPF (0-4)
[2020-05-21 15:00] VITALS: BP 91/51
--- NOTE | 2020-05-21 18:52 | MORECARE ---
CASE MANAGEMENT DISCHARGE SUMMARY PATIENT: RUCHI WOODS UNIT: [id number] ADM DATE: 04/22/20 AGE: 64 : 57 SEX: F ROOM/BED: D.5114 AUTHOR: JOSE ARAMBULA PHYSICIAN: REFERRING PHYSICIAN: THIAGO MILLIGAN MD DATE OF SERVICE: 05/21/20 Discharge Plan Patient Name: RUCHI WOODS Facility: [facility]:[place] : 1955 Planned Disposition: Anticipated Discharge Date: 05/22/20 Discharge Date: Expected LOS: 30 Initial Reviewer: [id number] Initial Review Date: 04/25/2020 Generated: 05/21/20 7:52 pm Comments DCP- Discharge Planning Updated by [email or web address]: Denia Rod on 05/21/20 5:[address] 1840: CM contacted Shobha with [facility] for the initial evaluation. CM notified Jose Barakat of CM contact with [facility] and he now states if patient meets [facility], he wants what is best for the patient. CM notified Shobha of same and states she will evaluate the patient tonight. [facility] is the office that will be used. CM contacted Jose Barakat ([facility]) [phone], regarding hospice. CM made Jose aware that the patient is lethargic and unable to make a decision. Jose request CM contact [facility] for home hospice. If at home, the address the patient will return to is: [address] [place] [address], in [place]. Jose states family will be available to care for the patient. PAULETTE notified Jassi Armendariz of same. DCP- Discharge Planning Updated by [email or web address]: Denia Rod on 05/16/20 4:[address] 1745: CM faxed the hospice order to [facility]. 1700: Patient's nephew, Jose Barakat request that information be sent to [facility], attn: Ambika. Jose states he is still undecided about patient's DC plan, but would like [facility] to evaluate patient's information to see what the patient would be more appropriate for. PAULETTE faxed requested information to Ambika with [facility]. Patient choice obtained via telephone from Jose Barakat. 1300: Jose Barakat, nephew of patient, called back and states he has discussed the patient's choices of NH with Hospice and NH and continue with HD. Per Jose, the patient stated to him " Well I better get off my ass and try to work with PT and start eating". Jose would like to know how the patient participates with PT, see if she makes an honest effort, then it will help him make a decision about patient's discharge plan. Jose states he will not make a decision without the patient, due to patient and helping him in the past. 1145: CM contacted patient's nephew, Brian "Emmanuel Barakat ([phone]), regarding [facility] not accepting patient to their facility. Nephew states "Good, I didn't want her to go there anyway". Jostin JONES also spoke with Jose regarding DC choices. Mr. Barakat states he will CB after he speaks to Mrs. Woods. Mr. Barakat states he is patient's POA, but there was never any paperwork to make it official. Mr. Barakat is at work and will CB later. CM contacted [facility], spoke with Amelia, who states the facility cannot provide transportation for dialysis appointments. CM made Jostin JONES aware of same. Patient's nephew, Jose ([phone]). DCP- Discharge Planning Updated by [id number]: Chloe Ayaka on 05/15/20 2:[address] I spoke with nephew at length today to discuss LTC placement vs Hospice. He is undecided and asks me to speak with patient. I attempted to call patient without an answer. I went to the room and spoke with patient and she understands that she will need to go to a senior living, but is not ready to make the decision. I called nephew back and informed him of this and he chooses [place] for a referral. I called [facility] and spoke with Amelia and clinical faxed. CM will continue to follow and assist with discharge planning/needs. DCP- Discharge Planning Updated by [email or web address]: Chloe Marley on 05/14/20 9:[address] Patient is in isolation. I spoke with nephew, Jose, to review options for post acute care. I informed him at this time, she is not able to go home to take care of herself. I informed him of the nursing facilities in the area, including [facility]. He is going to discuss with patient about senior living vs senior living with hospice. CM will continue to follow and assist with discharge planning/needs. DCP- Discharge Planning Updated by [id number]: Carrie Emmanuel on 05/07/20 8:[address] CM was notified late morning to transfer patient to a facility that has neuro since patient is new onset of seizures. CM had called and spoke with house detective at [facility] and she will call CM back once room is available expecting discharges. CM was notified at 1530 not to transfer patient that Dr. Valderrama will come in this evening to see patient. CM will continue to follow and assist as needed with d/c needs. DCP- Discharge Planning Updated by [id number]: Denia Rod on 05/07/20 10:[address] CM received a call from Norma Banks, ([facility]) with place/day HD. HD: M/W/F @0720, [facility] ORDC chair time 0720. Patient is to be at the facility @0700 for paperwork, bring a blanket, insurance card, ID, medication list. DCP- Discharge Planning Updated by [id number]: Chloe Ayaka on 05/06/20 4:[address] CM received a call from Norma Williamson, states she is having difficulty with her insurance. I called Jose, nephew, and gave her Norma's number per her request. DCP- Discharge Planning Updated by [email or web address]: Chloe Marley on 05/01/20 2:[address] CM called Norma and left a message on her answering machine that I needed an OP dialysis chair set up for patient. CM will continue to follow and assist with discharge planning/needs. DCP- Discharge Planning Updated by [id number]: Chloe Ayaka on 05/01/20 12:[address] After [facility]rd call to [facility], I reached Nasra. Nasra states she is now down to 5 days of rehab and they would not be able to accept patient. I spoke with the patient about fpc care. She does not want fpc care, she would like to go home with [facility]. She is telling me she has changed her mind about dialysis and now would like to be started on dialysis. I notified Soumya and she is calling nephrology. I notified Jostin Beckwith APN. CM will continue to follow and assist with discharge planning/needs. DCP- Discharge Planning Updated by [id number]: Chloe Marley on 04/29/20 7:[address] Updated notes faxed to [facility]. DCP- Discharge Planning Updated by [id number]: Chloe Warddestinee on 04/25/20 2:[address] I received a call from Irma with [facility] rehab. Irma states that she has enough available days that they can accept her if she is able to participate in therapy more. I spoke with the patient and encouraged her to work as much as she can with therapy. CM will continue to send therapy notes daily to [facility]. DCP- Discharge Planning Updated by [id number]: Chloe Warddestinee on 04/25/20 10:[address] Clinical faxed to [facility] for review. CM will continue to follow and assist with discharge needs. DCP- Discharge Planning Updated by [email or web address]: Chloe Marley on 04/25/20 10:[address] Patient Name: RUCHI WOODS Admission Status: ER Accout number: [id number] Admission Date: 04-22-2020 : 1955 Admission Diagnosis:URINARY TRACT INFECTION, SITE NOT SPECIFIED Attending: THIAGO MILLIGAN Current LOS: 3 Anticipated DC Date: Planned Disposition: Primary Insurance: [place] Discharge Planning Comments: CM met with patient to complete initial dc planning assessment. CM educated patient on the CM role and verbal consent given by patient to complete assessment. Patient lives at home alone, states her nephew lives on the same property and helps her with needs. CM discussed availability of home health, rehab services, and medical equipment. I informed her that her insurance would not cover SNF. The only inpatient rehab that could possibly consider her is [facility] [address]. She states she has been there before and would like a referral. She refuses senior living placement. States if [facility] cannot except, she would go home with resumption of [facility] health. She does not have oxygen at home, would need a room air sat prior to discharge to assess for home oxygen needs. CM will continue to follow and will assist as needed with dc plans/needs. Binder Operator: Chloe Marley DCPIA - Discharge Planning Initial Assessment Updated by [email or web address]: Chloe Marley on 04/25/20 10:47 am * Is the patient Alert and Oriented? Yes * How many steps to enter\\exit or inside your home? RAMP/0 * PCP Dr. Beaulieu * [facility] in [place] * Preadmission Environment Home Alone * ADLs Partial Dependent * Partial ADLs (Assistance needed) Ambulation Bathing Dressing Medication Management Transfers * Equipment Other Walker * Other Equipment Motorized wheelchair * List name and contact numbers for known caregivers / representatives who currently or will assist patient after discharge: Jose sebastian - [phone] * Verbal permission to speak to the caregivers and representatives has been obtained from the patient. Yes * Community resources currently utilized Home Health * Please name any agencies selected above. [facility] * Additional services required to return to the preadmission environment? Yes * Can the patient safely return to the preadmission environment? No * Has this patient been hospitalized within the prior 30 days at any hospital? Yes Coverage Notice Reviewer: [id number] - Chloe Marley Notice Issued Date-Time: 04/25/2020 11:52 Notice Type: Patient Choice Letter Notice Delivered To: Patient Relationship to Patient: Self Dry House Wheeler Name: Delivery Method: HAND - Hand Delivered Edel Days: Prior Verbal Notification: Recipient Understood Notice: Yes Recipient Signature: Yes Med Rec Note Co-signed by Attending: Coverage Notice Comment: TENISHA FOR [facility] Reviewer: [id number] - Chloe Marley Notice Issued Date-Time: 05/15/2020 14:57 Notice Type: Patient Choice Letter Notice Delivered To: Family Member Relationship to Patient: Nephew Dry House Wheeler Name: JOSE BARAKAT Delivery Method: PHONE - Phone Edel Days: Prior Verbal Notification: Recipient Understood Notice: Yes Recipient Signature: Med Rec Note Co-signed by Attending: Coverage Notice Comment: TENISHA FOR [place] Reviewer: [id number] Darrel Rod Notice Issued Date-Time: 05/16/2020 17:30 Notice Type: Patient Choice Letter Notice Delivered To: Family Member Relationship to Patient: Nephew Dry House Wheeler Name: Brian Pappas" [place] Delivery Method: CERT - Certified Mail Edel Days: Prior Verbal Notification: Recipient Understood Notice: Yes Recipient Signature: Yes Med Rec Note Co-signed by Attending: Coverage Notice Comment: [facility] is nephew's choice for evaluation of care. Last DP export: 05/19/20 8:14 Patient Name: RUCHI WOODS Page [id number] at 1852 All edits/amendments must be made on the electronic document DICTATION DATE: 05/21/201851 VETERINARY MEDICAL OFFICER: FOREST 05/21/201851 RPT#: [id number] DC DATE: STATUS: ADM IN [facility] [address] [place] [address] END OF REPORT
--- NOTE | 2020-05-21 19:10 | NUR ---
PT AT [facility] CLOSED WILL TURN Q2 BED LOW AND LOCKED CALL LIGHT IN REACH
[2020-05-21 20:00] VITALS: BP 89/56
--- NOTE | 2020-05-22 09:07 | MORECARE ---
CASE MANAGEMENT DISCHARGE SUMMARY PATIENT: RUCHI WOODS UNIT: [id number] ADM DATE: 04/22/20 AGE: 64 : 57 SEX: F ROOM/BED: D.9647 AUTHOR: JOSE ARAMBULA PHYSICIAN: REFERRING PHYSICIAN: THIAGO MILLIGAN MD DATE OF SERVICE: 05/22/20 Discharge Plan Patient Name: RUCHI WOODS Facility: [facility]:[place] : 1955 Planned Disposition: Anticipated Discharge Date: 05/22/20 Discharge Date: 05/21/2020 Expected LOS: 30 Initial Reviewer: [email or web address] Initial Review Date: 04/25/2020 Generated: 05/22/20 10:07 am Comments DCP- Discharge Planning Updated by [email or web address]: Denia Rod on 05/21/20 5:[address] 1840: CM contacted Shobha with [facility] for the initial evaluation. CM notified Jose Barakat of CM contact with [facility] and he now states if patient meets [facility], he wants what is best for the patient. CM notified Shobha of same and states she will evaluate the patient tonight. [facility] is the office that will be used. CM contacted Jose Barakat ([facility]) [phone], regarding hospice. CM made Jose aware that the patient is lethargic and unable to make a decision. Jose request CM contact [facility] for home hospice. If at home, the address the patient will return to is: [address] [place] [address], in [place]. Jose states family will be available to care for the patient. PAULETTE notified Jassi Armendariz of same. DCP- Discharge Planning Updated by [email or web address]: Denia Rod on 05/16/20 4:[address] 1745: CM faxed the hospice order to [facility]. 1700: Patient's nephew, Jose Barakat request that information be sent to [facility], attn: Ambika. Jose states he is still undecided about patient's DC plan, but would like [facility] to evaluate patient's information to see what the patient would be more appropriate for. PAULETTE faxed requested information to Ambika with [facility]. Patient choice obtained via telephone from Jose Barakat. 1300: Jose Barakat, nephew of patient, called back and states he has discussed the patient's choices of NH with Hospice and NH and continue with HD. Per Jose, the patient stated to him " Well I better get off my ass and try to work with PT and start eating". Jose would like to know how the patient participates with PT, see if she makes an honest effort, then it will help him make a decision about patient's discharge plan. Jose states he will not make a decision without the patient, due to patient and helping him in the past. 1145: CM contacted patient's nephew, Brian "Emmanuel Barakat ([phone]), regarding [facility] not accepting patient to their facility. Nephew states "Good, I didn't want her to go there anyway". Jostin JONES also spoke with Jose regarding DC choices. Mr. Barakat states he will CB after he speaks to Mrs. Woods. Mr. Barakat states he is patient's POA, but there was never any paperwork to make it official. Mr. Barakat is at work and will CB later. CM contacted [facility], spoke with Amelia, who states the facility cannot provide transportation for dialysis appointments. CM made Jostin JONES aware of same. Patient's nephew, Jose ([phone]). DCP- Discharge Planning Updated by [email or web address]: Chloe Marley on 05/15/20 2:[address] I spoke with nephew at length today to discuss LTC placement vs Hospice. He is undecided and asks me to speak with patient. I attempted to call patient without an answer. I went to the room and spoke with patient and she understands that she will need to go to a retirement, but is not ready to make the decision. I called nephew back and informed him of this and he chooses [place] for a referral. I called [facility] and spoke with Amelia and clinical faxed. CM will continue to follow and assist with discharge planning/needs. DCP- Discharge Planning Updated by [id number]: Chloe Marley on 05/14/20 9:[address] Patient is in isolation. I spoke with nephew, Jose, to review options for post acute care. I informed him at this time, she is not able to go home to take care of herself. I informed him of the nursing facilities in the area, including [facility]. He is going to discuss with patient about retirement vs retirement with hospice. CM will continue to follow and assist with discharge planning/needs. DCP- Discharge Planning Updated by [id number]: Carrie Emmanuel on 05/07/20 8:[address] CM was notified late morning to transfer patient to a facility that has neuro since patient is new onset of seizures. CM had called and spoke with house steward/stewardess at [facility] and she will call CM back once room is available expecting discharges. CM was notified at 1530 not to transfer patient that Dr. Valderrama will come in this evening to see patient. CM will continue to follow and assist as needed with d/c needs. DCP- Discharge Planning Updated by [id number]: Denia Rod on 05/07/20 10:[address] CM received a call from Norma Banks, ([employer]) with place/day HD. HD: M/W/F @0720, [facility] ORDC chair time 0720. Patient is to be at the facility @0700 for paperwork, bring a blanket, insurance card, ID, medication list. DCP- Discharge Planning Updated by [id number]: Chloe Ayaka on 05/06/20 4:[address] CM received a call from Norma Williamson, states she is having difficulty with her insurance. I called Jose, nephew, and gave her Norma's number per her request. DCP- Discharge Planning Updated by [id number]: Chloe Marley on 05/01/20 2:[address] CM called Norma and left a message on her answering machine that I needed an OP dialysis chair set up for patient. CM will continue to follow and assist with discharge planning/needs. DCP- Discharge Planning Updated by [id number]: Chloe Warddestinee on 05/01/20 12:[address] After 3rd call to [facility], I reached Nasra. Nasra states she is now down to 5 days of rehab and they would not be able to accept patient. I spoke with the patient about custodial care. She does not want custodial care, she would like to go home with [facility]. She is telling me she has changed her mind about dialysis and now would like to be started on dialysis. I notified Soumya and she is calling nephrology. I notified Jostin Beckwith APN. CM will continue to follow and assist with discharge planning/needs. DCP- Discharge Planning Updated by [id number]: Chloe Warddestinee on 04/29/20 7:[address] Updated notes faxed to [facility]. DCP- Discharge Planning Updated by [id number]: Chloe Warddestinee on 04/25/20 2:[address] I received a call from Irma with [facility] rehab. Irma states that she has enough available days that they can accept her if she is able to participate in therapy more. I spoke with the patient and encouraged her to work as much as she can with therapy. CM will continue to send therapy notes daily to [facility]. DCP- Discharge Planning Updated by [id number]: Chloe Ayaka on 04/25/20 10:[address] Clinical faxed to [facility] for review. CM will continue to follow and assist with discharge needs. DCP- Discharge Planning Updated by [id number]: Chloe Warddestinee on 04/25/20 10:[address] Patient Name: RUCHI WOODS Admission Status: ER Accout number: [id number] Admission Date: 04-22-2020 : 1955 Admission Diagnosis:URINARY TRACT INFECTION, SITE NOT SPECIFIED Attending: THIAGO MILLIGAN Current LOS: 3 Anticipated DC Date: Planned Disposition: Primary Insurance: [place] Discharge Planning Comments: CM met with patient to complete initial dc planning assessment. CM educated patient on the CM role and verbal consent given by patient to complete assessment. Patient lives at home alone, states her nephew lives on the same property and helps her with needs. CM discussed availability of home health, rehab services, and medical equipment. I informed her that her insurance would not cover SNF. The only inpatient rehab that could possibly consider her is [facility] [address]. She states she has been there before and would like a referral. She refuses retirement placement. States if [facility] cannot except, she would go home with resumption of [facility] health. She does not have oxygen at home, would need a room air sat prior to discharge to assess for home oxygen needs. CM will continue to follow and will assist as needed with dc plans/needs. Yard Brakeman: Chloe Marley DCPIA - Discharge Planning Initial Assessment Updated by [id number]: Chloe Marley on 04/25/20 10:47 am * Is the patient Alert and Oriented? Yes * How many steps to enter\\exit or inside your home? RAMP/0 * PCP Dr. Beaulieu * Pharmacy [facility] in [place] * Preadmission Environment Home Alone * ADLs Partial Dependent * Partial ADLs (Assistance needed) Ambulation Bathing Dressing Medication Management Transfers * Equipment Other Walker * Other Equipment Motorized wheelchair * List name and contact numbers for known caregivers / representatives who currently or will assist patient after discharge: Jose sebastian - [phone] * Verbal permission to speak to the caregivers and representatives has been obtained from the patient. Yes * Community resources currently utilized Home Health * Please name any agencies selected above. [facility] health * Additional services required to return to the preadmission environment? Yes * Can the patient safely return to the preadmission environment? No * Has this patient been hospitalized within the prior 30 days at any hospital? Yes Coverage Notice Reviewer: [id number] - Chloe Marley Notice Issued Date-Time: 04/25/2020 11:52 Notice Type: Patient Choice Letter Notice Delivered To: Patient Relationship to Patient: Self Bread And Pastry Baker Name: Delivery Method: HAND - Hand Delivered Edel Days: Prior Verbal Notification: Recipient Understood Notice: Yes Recipient Signature: Yes Med Rec Note Co-signed by Attending: Coverage Notice Comment: TENISHA FOR [facility] Reviewer: [id number] Darrel Marley Notice Issued Date-Time: 05/15/2020 14:57 Notice Type: Patient Choice Letter Notice Delivered To: Family Member Relationship to Patient: Nephew Bread And Pastry Baker Name: JOSE BARAKAT Delivery Method: PHONE - Phone Edel Days: Prior Verbal Notification: Recipient Understood Notice: Yes Recipient Signature: Med Rec Note Co-signed by Attending: Coverage Notice Comment: TENISHA FOR [place] Reviewer: [email or web address] Darrel Rod Notice Issued Date-Time: 05/16/2020 17:30 Notice Type: Patient Choice Letter Notice Delivered To: Family Member Relationship to Patient: Nephew Bread And Pastry Baker Name: Brian Pappas" [place] Delivery Method: CERT - Certified Mail Edel Days: Prior Verbal Notification: Recipient Understood Notice: Yes Recipient Signature: Yes Med Rec Note Co-signed by Attending: Coverage Notice Comment: [facility] is nephew's choice for evaluation of care. Last DP export: 05/21/20 5:52 Patient Name: RUCHI WOODS Page [id number] at 0907 All edits/amendments must be made on the electronic document DICTATION DATE: 05/22/20906 ORGAN TUNER: FOREST 05/22/20906 RPT#: [id number] DC DATE:05/21/20 STATUS: DIS IN [facility] [address] [place] [address] END OF REPORT
[2020-05-26 15:08] LABS: AMPHOTERICIN B MIC 0.5 ug/mL (())
== END 2020-05-21 23:45 | disposition hospice, inpatient (51) | DRG 673 ==
LOC: D.ER 12:46 → D.M2 18:25 → D.ICU 05-06 23:56 → D.M2 05-08 04:27
PROVIDERS: Emergency Medicine; Family Medicine; Family Medicine Adult Medicine; Internal Medicine; Internal Medicine Hematology & Oncology; Internal Medicine Nephrology; Specialist; Surgery; ADMIT Family Medicine; ATTEND Family Medicine
PROC: 0W9G3ZZ Drainage of Peritoneal Cavity, Percutaneous Approach (ICD-10-PCS; 2020-04-23)
PROC: 0W9G3ZZ Drainage of Peritoneal Cavity, Percutaneous Approach (ICD-10-PCS; 2020-04-29)
PROC: 02HV33Z Insertion of Infusion Device into Superior Vena Cava, Percutaneous Approach (ICD-10-PCS; 2020-05-02)
PROC: B5181ZA Fluoroscopy of Superior Vena Cava using Low Osmolar Contrast, Guidance (ICD-10-PCS; 2020-05-02)
PROC: 0JH63XZ Insertion of Tunneled Vascular Access Device into Chest Subcutaneous Tissue and Fascia, Percutaneous Approach (ICD-10-PCS; principal; 2020-05-02 09:30)
PROC: 0DB48ZX Excision of Esophagogastric Junction, Via Natural or Artificial Opening Endoscopic, Diagnostic (ICD-10-PCS; 2020-05-09)
PROC: 0DB68ZX Excision of Stomach, Via Natural or Artificial Opening Endoscopic, Diagnostic (ICD-10-PCS; 2020-05-09)
DX: N17.0 Acute kidney failure with tubular necrosis (principal); G93.41 Metabolic encephalopathy; R53.2 Functional quadriplegia; J96.91 Respiratory failure, unspecified with hypoxia; N39.0 Urinary tract infection, site not specified; I13.0 Hypertensive heart and chronic kidney disease with heart failure and stage 1 through stage 4 chronic kidney disease, or unspecified chronic kidney disease; R18.8 Other ascites; E87.1 Hypo-osmolality and hyponatremia; Z68.41 Body mass index [BMI] 40.0-44.9, adult; E11.52 Type 2 diabetes mellitus with diabetic peripheral angiopathy with gangrene; I96 Gangrene, not elsewhere classified; K72.10 Chronic hepatic failure without coma; K74.60 Unspecified cirrhosis of liver; E11.22 Type 2 diabetes mellitus with diabetic chronic kidney disease; N18.9 Chronic kidney disease, unspecified; I50.9 Heart failure, unspecified; E03.9 Hypothyroidism, unspecified; E11.40 Type 2 diabetes mellitus with diabetic neuropathy, unspecified; D63.1 Anemia in chronic kidney disease; D50.9 Iron deficiency anemia, unspecified; E66.01 Morbid (severe) obesity due to excess calories; D69.6 Thrombocytopenia, unspecified; R00.0 Tachycardia, unspecified; R56.9 Unspecified convulsions; K21.00 Gastro-esophageal reflux disease with esophagitis, without bleeding; E11.43 Type 2 diabetes mellitus with diabetic autonomic (poly)neuropathy; K31.84 Gastroparesis; K29.70 Gastritis, unspecified, without bleeding; Z95.0 Presence of cardiac pacemaker; B96.20 Unspecified Escherichia coli [E. coli] as the cause of diseases classified elsewhere

== ENCOUNTER 2020-05-21 23:57 | Inpatient (IN) | payer OTHER ==
[~2020-05-21] VITALS: Ht 160 cm; Wt 104.8 kg
[~2020-05-21 23:57] MED LIST changes: +ZOFRAN4 MG PO
--- NOTE | 2020-05-22 07:15 | NUR ---
RECEIVE SHIFT REPORT. INFORMED OF PATIENT CODE STATUS AND COMFORT CARE. DILAUDID CORPORATE HUMAN RESOURCES MANAGER CONTINUOUS. NO SIGNS OF DISTRESS. RESTING WITH EYES CL0SED. RESPIRATIONS 20. WILL CONTINUE PLAN OF CARE AND SAFETY PRECAUTIONS.
[2020-05-22 09:04] VITALS: BP 95/65
[2020-05-22 09:35] VITALS: BP 82/54; BMI 41.0
[2020-05-22 13:24] VITALS: Ht 160 cm; Wt 104.8 kg
--- NOTE | 2020-05-22 15:47 | MORECARE ---
CASE MANAGEMENT DISCHARGE SUMMARY PATIENT: RUCHI WOODS UNIT: [id number] ADM DATE: 05/21/20 AGE: 64 : 57 SEX: F ROOM/BED: D.3176 AUTHOR: JOSE ARAMBULA PHYSICIAN: REFERRING PHYSICIAN: ANTWON FLYNN MD DATE OF SERVICE: 05/22/20 Discharge Plan Patient Name: RUCHI WOODS Facility: [facility]:[place] : 1955 Planned Disposition: Anticipated Discharge Date: Discharge Date: Expected LOS: Initial Reviewer: [id number] Initial Review Date: 05/22/2020 Generated: 05/22/20 4:46 pm Comments DCP- Discharge Planning Updated by [id number]: Chloe Marley on 05/22/20 2:[address] Patient is on [facility]. Patient Name: RUCHI WOODS Page [id number] at 1547 All edits/amendments must be made on the electronic document DICTATION DATE: 05/22/20 1546 BEHAVIORAL HEALTH CONSULTANT: FOREST 05/22/20 1546 RPT#: [id number] DC DATE: STATUS: ADM IN [facility] [address] [place] [address] END OF REPORT
--- NOTE | 2020-05-22 19:00 | NUR ---
REPORT RECEIVED, WILL CONTINUE POC. PATIENT IS UNRESPONSIVE, MOANING, AND HAS LABORED BREATHING. JED FROM [facility] AT BEDSIDE. LT IJ, PATENT INFUSING DILAUDID INSTRUMENTATION FITTER PER ORDERS AND NS @ 10ML/HR. WILL CTM.
--- NOTE | 2020-05-22 19:36 | NUR ---
JED FROM [facility] AT BEDSIDE. NEW ORDERS RECEIVED.
[2020-05-22 20:00] VITALS: BP 81/48
--- NOTE | 2020-05-22 22:03 | NUR ---
PATIENT IS NOW PULSLESS, ABSENT HEART SOUNDS. [facility] NOTIFIED AT THIS TIME.
--- NOTE | 2020-05-23 07:25 | MORECARE ---
CASE MANAGEMENT DISCHARGE SUMMARY PATIENT: RUCHI WOODS UNIT: [id number] ADM DATE: 05/21/20 AGE: 64 : 57 SEX: F ROOM/BED: D.1423 AUTHOR: JOSE ARAMBULA PHYSICIAN: REFERRING PHYSICIAN: ANTWON FLYNN MD DATE OF SERVICE: 05/23/20 Discharge Plan Patient Name: RUCH[facility] WOOD[facility] [facility] 1955 Planned Disposition: Anticipated Discharge Date: Discharge Date: 05/23/2020 Expected LOS: 0 Initial Reviewer: [email or web address] Initial Review Date: 05/22/2020 Generated: 05/23/20 8:24 am Comments DCP- Discharge Planning Updated by [email or web address]: Chloe Marley on 05/22/20 2:[address] Patient is on [facility]. Last DP export: 05/22/20 2:46 Patient Name: RUCHI WOODS Page [id number] at 0725 All edits/amendments must be made on the electronic document DICTATION DATE: 05/23/20723 [facility]GER [facility]SING [facility]: [facility] 05/23/20723 RPT#: [id number] DC DATE:05/23/20 STATUS: DIS IN [facility] [address] [place] [address] END OF REPORT
== END 2020-05-23 02:12 | DRG 951 ==
LOC: D.M2 23:57
PROVIDERS: ADMIT Legal Medicine; ATTEND Legal Medicine
DX: Z51.5 Encounter for palliative care (principal)